=== PATIENT | male | born 1940 | race Caucasian/White ===

== ENCOUNTER → 2019-06-22 15:11 | Outpatient (CLI) | payer MEDICARE, SELFPAY ==
--- NOTE | 2019-06-22 | DI.MRI.S_ITS ---
PROCEDURE: MR LUMBAR SPINE WO CON INDICATIONS: Spondylolisthesis, lumbar region TECHNIQUE: Noncontrast sagittal T1 spin echo and T2 fast echo, sagittal STIR, axial T1 and T2 fast spin echo through the lumbar spine. In cases with scoliosis, additional coronal T2 fast spin echo may be performed. COMPARISON: [facility], MR, L-SPINE WITHOUT CONTRAST, 06/21/2013, 18:15. [facility], CR, XR LUMBAR SPINE WITH OLBIQUES PLUS FLEXION EXTENSION, 06/08/2019, 8:12. FINDINGS: Image quality: Excellent. Alignment and Curvature: There is moderate levoconvex scoliosis. There is mild retrolisthesis seen at L1-L2 at L2-L3, with mild interval is seen at the L5. Bone Marrow: Marrow is of normal overall signal. The T12 level demonstrates 20% loss of height anteriorly. There is abnormal decreased T1 weighted signal and decreased STIR signal along the inferior aspect of the vertebral body. No posterior displacement of fracture fragments can be seen. This is new compared to 2012. Spinal Cord: Conus medullaris terminates at the T12-L1 level. Visualized cord demonstrates normal signal and size. Paraspinous Soft Tissues: No paravertebral masses. T12-L1: Normal appearance. L1-L2: Moderate loss of disc height is seen. Loss of disc signal is seen. Reactive marrow endplate changes are seen, which are hyperintense on T1-weighted and T2-weighted imaging and most consistent with fatty metaplasia (Modic type II changes). Moderate bilateral neural foraminal narrowing is seen. Moderate central canal narrowing is seen. These imaging findings have progressed compared to the prior study. L2-L3: Mild to moderate loss of disc height and disc signal are seen. Moderate disc bulge is seen, which is eccentric to the right. Reactive marrow endplate changes are seen, which are hyperintense on T1-weighted and T2-weighted imaging and most consistent with fatty metaplasia (Modic type II changes). There is moderate to severe bilateral neural foraminal narrowing seen. There is a degree of compression seen upon the exiting nerve roots. Moderate central canal narrowing is seen. These imaging findings have progressed compared to the prior study. L3-L4: Moderate to severe loss of disc height and disc signal are seen. Reactive marrow endplate changes are seen, which demonstrate mixed T1 weighted and T2-weighted signal, and are attributed to a combination of edema and fatty metaplasia (Modic type I and Modic type II changes). There is at least moderate disc bulge seen. There is moderate to severe right-sided neural foraminal narrowing seen, with associated mild compression upon the exiting right L3 nerve root. There is moderate left-sided neural foraminal narrowing seen. Moderate central canal narrowing is seen. When comparison is made with the prior examination, these findings are similar. L4-L5: There is at least moderate loss of disc height and disc signal seen. Moderate disc bulge is seen at this level. Moderate to prominent facet hypertrophy is seen. There is moderate to severe left-sided and at least moderate right-sided neural foraminal narrowing seen. A mild degree of compression cannot be seen upon the exiting nerve roots, left worse than right. Moderate to severe central canal narrowing is seen. These imaging findings have progressed compared to the prior study. L5-S1: Mild to moderate loss of disc height and disc signal are seen. Mild to moderate disc bulge is seen, which is eccentric to the left. Moderate bilateral neural foraminal narrowing is seen, left worse than right. Mild central canal narrowing is seen. When comparison is made with the prior examination, these findings are similar. 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 Subacute anterior wedge deformity seen involving T12. Moderate levoconvex scoliosis. The degenerative changes have progressed compared to 2013. Dictated by: Dragan Payne M.D. on 06/22/2019 at 16:33 Approved by: Dragan Payne M.D. on 06/22/2019 at 16:41
== END ==
PROVIDERS: Family Provider Internal Medicine; PCP Internal Medicine; Visit Provider Physical Medicine & Rehabilitation
DX: M43.16 Spondylolisthesis, lumbar region (principal); M47.816 Spondylosis without myelopathy or radiculopathy, lumbar region; M47.817 Spondylosis without myelopathy or radiculopathy, lumbosacral region; M48.061 Spinal stenosis, lumbar region without neurogenic claudication
CPT/HCPCS: 72148

== ENCOUNTER → 2019-09-21 09:09 | Outpatient (CLI) | payer MEDICARE, SELFPAY ==
[2019-09-21 09:57] LABS: Add Manual Diff / Slide Review NO; Basophils Absolute Auto 0 /uL (0-100); Basophils Percent Auto 0.3 % (0-2); Eosinophils Absolute Auto 200 /uL (0-450); Eosinophils Percent Auto 4.5 % (2-4); Hematocrit 41.9 % (41-53); Hemoglobin 14.2 g/dL (13.5-17.5); Lymphocytes Absolute Auto 1100 /uL (1100-4500); Lymphocytes Percent Auto 20.5 % (25-40); Mean Corpuscular HGB Conc 33.9 % (30-36); Mean Corpuscular Hemoglobin 34.3 PG (26-34); Monocytes Absolute Auto 600 /uL (0-900); Monocytes Percent Auto 12.2 % (3-14); Neutrophils Absolute Auto 3300 /uL (1500-7000); Neutrophils Percent Auto 62.5 % (50-75); Platelet Count 204 X10^3/uL (150-400); Red Blood Cell Count 4.15 X10^6/uL (4.5-5.9); Red Cell Distribution Width 13.6 % (11.6-14.8); White Blood Cell Count 5.2 X10^3/uL (4.5-11.0)
[2019-09-21 10:19] LABS: Alanine Aminotransferase 30 IU/L (<50); Albumin 3.9 g/dL (3.5-5.0); Albumin Globulin Ratio 1.4 (1.0-2.8); Alkaline Phosphatase 87 U/L (38-126); Aspartate Aminotransferase 36 IU/L (17-59); BUN Creatinine Ratio 28.6 (6-22); Bilirubin Total 1.2 mg/dL (0.2-1.3); Blood Urea Nitrogen 20 mg/dL (9-20); Carbon Dioxide 28 mmol/L (22-32); Chloride 103 mmol/L (98-107); Cholesterol 164 mg/dL (140-199); Estimated Glomerular Filt Rate > 60.0 mL/min (>60); Globulin 2.8 g/dL (1.7-4.1); Glucose 90 mg/dL (80-110); HDL Cholesterol 59 mg/dL (40-60); HEMOLYSIS < 15 (0-50); LDL Cholesterol Calculated 98 mg/dL (<100); Potassium 4.3 mmol/L (3.4-5.1); Sodium 136 mmol/L (137-145); Total Protein 6.7 g/dL (6.3-8.2); Triglycerides 36 mg/dL (35-150)
== END ==
PROVIDERS: Family Provider Internal Medicine; PCP Internal Medicine; Referring Provider Internal Medicine; Visit Provider Internal Medicine
DX: E78.00 Pure hypercholesterolemia, unspecified (principal); L57.0 Actinic keratosis; I47.1 Supraventricular tachycardia; I10 Essential (primary) hypertension
CPT/HCPCS: 36415; 80053; 80061; 85025

== ENCOUNTER 2021-05-21 17:45 | Emergency (ER) | payer MEDICARE, SELFPAY ==
[2021-05-21] VITALS (8 sets, daily range): BP systolic 147–160; BP diastolic 75–88; PULSE 69–81; RESP 16–18; TEMP 37.5; O2SAT 96–100; BMI 22.3
--- NOTE | 2021-05-21 18:30 | DI.RAD.S_ITS ---
PROCEDURE: XR CHEST 1V INDICATIONS: suspected sepsis TECHNIQUE: One view of the chest was acquired. COMPARISON: [facility], , CHEST 2 VIEW, 11/09/2010, 8:45. FINDINGS: Surgical changes and devices: None. Lungs and pleura: Lungs are clear. No pleural effusions or pneumothorax. Mediastinum: Mediastinal contours appear normal. Heart size is normal. Bones and chest wall: No suspicious bony lesions. Overlying soft tissues appear unremarkable. Generalized decrease in osseous mineralization noted. IMPRESSION: No acute cardiopulmonary findings Approved by: Alonzo Bucio M.D. on 05/21/2021 at 18:16
[2021-05-21] MEDS: SODIUM CHLORIDE 0.9% 1,000 ML 1000 ML IV (18:47)
[2021-05-21 18:51] LABS: Add Manual Diff / Slide Review NO; Basophils Absolute Auto 0 /uL (0-100); Basophils Percent Auto 0.5 % (0-2); Eosinophils Absolute Auto 0 /uL (0-450); Eosinophils Percent Auto 0.2 % (2-4); Hematocrit 40.8 % (41-53); Lymphocytes Absolute Auto 500 /uL (1100-4500); Lymphocytes Percent Auto 5.2 % (25-40); Mean Corpuscular HGB Conc 34.2 % (30-36); Mean Corpuscular Hemoglobin 34.6 PG (26-34); Mean Corpuscular Volume 101.1 fL (80-100); Monocytes Absolute Auto 600 /uL (0-900); Monocytes Percent Auto 6.6 % (3-14); Neutrophils Absolute Auto 8400 /uL (1500-7000); Neutrophils Percent Auto 87.5 % (50-75); Platelet Count 169 X10^3/uL (150-400); Red Blood Cell Count 4.04 X10^6/uL (4.5-5.9); Red Cell Distribution Width 12.7 % (11.6-14.8); White Blood Cell Count 9.6 X10^3/uL (4.5-11.0)
[2021-05-21 19:01] LABS: INR 1.2 (0.9-1.3); Prothrombin Time 13.1 SECONDS (10.1-12.7)
[2021-05-21 19:04] LABS: PTT Partial Thromboplastin Tim 28 SECONDS (26.4-36.2)
[2021-05-21 19:08] LABS: Alanine Aminotransferase 23 IU/L (<50); Albumin 4.2 g/dL (3.5-5.0); Albumin Globulin Ratio 1.4 (1.0-2.8); Alkaline Phosphatase 83 U/L (38-126); Aspartate Aminotransferase 33 IU/L (17-59); BUN Creatinine Ratio 22.6 (6-22); Bilirubin Total 1.9 mg/dL (0.2-1.3); Blood Urea Nitrogen 14 mg/dL (9-20); Calcium 9.1 mg/dL (8.4-10.2); Carbon Dioxide 23 mmol/L (22-32); Chloride 96 mmol/L (98-107); Estimated Glomerular Filt Rate > 60.0 mL/min (>60); Globulin 2.9 g/dL (1.7-4.1); Glucose 84 mg/dL (80-110); HEMOLYSIS < 15 (0-50); Lactate (Lactic Acid) 1.4 mmol/L (0.7-2.1); Lipase 41 U/L (23-300); Potassium 4.1 mmol/L (3.4-5.1); Sodium 128 mmol/L (137-145); Total Protein 7.1 g/dL (6.3-8.2)
--- NOTE | 2021-05-21 19:12 | ED_ITS ---
HPI - Fever <Romy Sandoval PA-C - Last Filed: 05/27/21 21:05> General Chief Complaint: Fever Stated Complaint: Fever,Abcess Tooth on Left Side Time Seen by Provider: 05/21/21 18:40 Source: patient Mode of arrival: Ambulatory Limitations: no limitations History of Present Illness HPI Narrative: 80-year-old male with no reported past medical history presents to the ED with 1 day of left-sided dental pain. Patient states that he has an appointment with his dentist tomorrow for a dental abscess. Meanwhile, patient is to it got more painful and patient endorses a fever. Patient denies chills, shortness of breath, chest pain, cough, trouble swallowing, neck pain, nausea, vomiting, abdominal pain, lightheadedness, dizziness, syncope. Patient denies any discharge from the site of the dental pa Related Data Home Medications Medication Instructions Recorded Confirmed atenolol 25 mg tablet 25 mg PO QDAY #0 tab 04/19/13 05/21/21 atorvastatin 40 mg tablet (Lipitor) 40 mg PO BEDTIME #0 tab 04/19/13 05/21/21 lisinopril 20 mg tablet 20 mg PO QAM 05/21/21 05/21/21 Previous Rx's Medication Instructions Recorded amoxicillin 875 mg-potassium 1 tab PO BID 14 Days #28 tab 05/21/21 clavulanate 125 mg tablet (Augmentin) Allergies Allergy/AdvReac Type Severity Reaction Status Date / Time No Known Drug Allergies Allergy Verified 05/21/21 18:32 Review of Systems <Romy Sandoval PA-C - Last Filed: 05/27/21 21:05> Constitutional Constitutional: Denies chills, Denies fatigue, Reports fever(s), Denies frequent falls, Denies lethargy and Denies weakness Eyes Eyes: Denies change in vision, Denies eye discharge, Denies irritation and Denies loss of vision ENT Ears, Nose, Mouth, and Throat: Denies change in voice, Reports dental pain, Denies dizziness, Denies neck pain, Denies sore throat and Denies throat swelling Cardiovascular Cardiovascular: Denies chest pain, Denies irregular heart rhythm, Denies lightheadedness, Denies palpitations, Denies dyspnea, Denies dyspnea on exertion and Denies orthopnea Respiratory Respiratory: Denies cough, Denies dyspnea, Denies dyspnea on exertion and Denies wheezing Gastrointestinal Gastrointestinal: Denies abdominal pain, Denies change in bowel habits, Denies diarrhea, Denies nausea and Denies vomiting Musculoskeletal Musculoskeletal: Denies neck pain and Denies numbness Integumentary/Breasts Skin/Breast: Denies pruritus, Denies erythema, Denies rash and Denies wounds Neurologic Neurologic: Denies behavioral changes, Denies confusion, Denies dizziness, Denies frequent falls, Denies loss of vision, Denies numbness and Denies weakness Psychiatric Psychiatric: Denies anxiety, Denies behavioral changes, Denies confusion, Denies depression, Denies homicidal ideation and Denies suicidal ideation Endocrine Endocrine: Denies fatigue, Denies flushing and Denies palpitations Hematologic/Lymphatic Hematologic/Lymphatic: Denies easy bruising Allergic/Immunologic Allergic/Immunologic: Denies urticaria, Denies throat swelling and Denies wheezing Patient History <Romy Sandoval PA-C - Last Filed: 05/27/21 21:05> Social History Smoking Status: Never smoker Smoking Status: Never smoker alcohol intake frequency: 0-2 drinks per day Substance Use Type: does not use Exam <Romy Sandoval PA-C - Last Filed: 05/27/21 21:05> Narrative Exam Narrative: Left-sided lower tooth tender to palpation, no signs of discharge. No oral swelling. Airway patent. Initial Vital Signs Initial Vital Signs: Vital Signs Temperature 99.5 F 05/21/21 18:32 Pulse Rate 74 05/21/21 18:32 Respiratory Rate 18 05/21/21 18:32 Blood Pressure 160/88 H 05/21/21 18:32 Pulse Oximetry 96 05/21/21 18:32 Const General: cooperative HENMT Head: normocephalic and atraumatic Ears: external ears normal and TM's normal bilaterally Nose: external nose normal and No nasal discharge Face and sinus: sinuses nontender, face symmetric, no sinus tenderness and No dry mucous membranes Mouth: oral mucosae normal and moist mucous membranes Teeth and gingiva: dentition normal Throat: tonsils normal and uvula midline Eyes General: appearance normal, both eyes and all related structures Eyelids: eyelids normal Conjunctivae: conjunctivae normal Sclera: sclerae normal Pupils: PERRL EOM: EOM intact bilaterally Neck Neck: normal visual inspection, trachea midline, No lymphadenopathy, No midline deformity and No JVD Lymphatic: No lymphedema Chest Chest: normal inspection of the chest Resp Effort & Inspection: normal respiratory effort, able to speak in complete sentences, no respiratory distress and no use of accessory muscles Auscultation: clear to auscultation bilaterally, no rales, no rhonchi and no wheezes Cardio Rate: regular rate Rhythm: regular rhythm Heart Sounds: no click, no gallops, no murmurs and no rubs Pulses: normal peripheral pulses GI Inspection: non-distended Palpation: soft, no hepatosplenomegaly, No guarding, No pulsatile mass and No tender Auscultation: normal bowel sounds Back/Spine/Pelvis Back: No CVA tenderness Cervical Spine: cervical ROM normal and No pain with cervical ROM Thoracic/Lumbar Spine: thoracic and lumbar spine normal to inspection Skin General: no rashes or lesions noted, No jaundice and No petechiae Neuro General: patient alert, patient oriented x3, gait normal and no focal motor deficits Speech: speech normal Extrem General: full ROM, no clubbing, cyanosis or edema, no pedal edema and no calf tenderness Psych Appearance: well kempt Mental Status: mental status grossly normal Attitude: cooperative Thought Content: normal and suicidality Judgment: judgment good <Placido Lemus DO - Last Filed: 05/29/21 07:05> Initial Vital Signs Initial Vital Signs: Vital Signs Temperature 99.5 F 05/21/21 18:32 Pulse Rate 74 05/21/21 18:32 Respiratory Rate 18 05/21/21 18:32 Blood Pressure 160/88 H 05/21/21 18:32 Pulse Oximetry 96 05/21/21 18:32 Course <Romy Sandoval PA-C - Last Filed: 05/27/21 21:05> Orders Ordered: Discontinued Medications Amoxicillin/Clavulanate Potassium (Amoxicillin/Clav 875/125 Mg) 1 tab PO NOW ONE Stop: 05/21/21 19:36 Last Admin: 05/21/21 19:45 Dose: 1 tab Documented by: LARYYLNAEL Sodium Chloride (Normal Saline 0.9%) 1,000 mls @ 1,000 mls/hr IV BOLUS ONE Stop: 05/21/21 19:29 Last Infusion: 05/21/21 19:47 Dose: 0 mls/hr Documented by: Admin: 05/21/21 18:47 Dose: 1,000 mls/hr Documented by: ABI Ibuprofen (Ibuprofen 400 Mg Tablet) 800 mg PO NOW ONE Stop: 05/21/21 19:36 Last Admin: 05/21/21 19:45 Dose: 800 mg Documented by: ABI Vital Signs Vital signs: Vital Signs - 8 hr 05/21/21 18:32 05/21/21 18:45 Temperature 99.5 F Pulse Rate 74 75 Respiratory Rate 18 18 Blood Pressure 160/88 H 147/75 H Pulse Oximetry 96 100 <Placido Lemus DO - Last Filed: 05/29/21 07:05> Orders Ordered: Discontinued Medications Amoxicillin/Clavulanate Potassium (Amoxicillin/Clav 875/125 Mg) 1 tab PO NOW ONE Stop: 05/21/21 19:36 Last Admin: 05/21/21 19:45 Dose: 1 tab Documented by: ABI Sodium Chloride (Normal Saline 0.9%) 1,000 mls @ 1,000 mls/hr IV BOLUS ONE Stop: 05/21/21 19:29 Last Infusion: 05/21/21 19:47 Dose: 0 mls/hr Documented by: Admin: 05/21/21 18:47 Dose: 1,000 mls/hr Documented by: ABI Ibuprofen (Ibuprofen 400 Mg Tablet) 800 mg PO NOW ONE Stop: 05/21/21 19:36 Last Admin: 05/21/21 19:45 Dose: 800 mg Documented by: ABI Vital Signs Vital signs: Vital Signs - 8 hr 05/21/21 18:32 05/21/21 18:45 Temperature 99.5 F Pulse Rate 74 75 Respiratory Rate 18 18 Blood Pressure 160/88 H 147/75 H Pulse Oximetry 96 100 MDM - Fever <Romy Sandoval PA-C - Last Filed: 05/27/21 21:05> Medical Records Attestation: I reviewed the patient's medical records. Lab Data Attestation: I reviewed the patient's lab results. Lab results narrative: labs within normal limits Result diagrams: 05/21/21 18:45 05/21/21 18:45 Labs: Lab Results 05/21/21 05/21/21 05/21/21 Range/Units 18:45 18:45 18:45 WBC 9.6 (4.5-11.0) X10^3/uL RBC 4.04 L (4.5-5.9) X10^6/uL Hgb 14.0 (13.5-17.5) g/dL Hct 40.8 L (41-53) % MCV 101.1 H (80-100) fL MCH 34.6 H (26-34) PG MCHC 34.2 (30-36) % RDW 12.7 (11.6-14.8) % Plt Count 169 (150-400) X10^3/uL Neut % (Auto) 87.5 H (50-75) % Lymph % (Auto) 5.2 L (25-40) % Sevier % (Auto) 6.6 (3-14) % Eos % (Auto) 0.2 L (2-4) % Baso % (Auto) 0.5 (0-2) % Neut # (Auto) 8400 H (8106-6525) /uL Lymph # (Auto) 500 L (8060-6504) /uL Sevier # (Auto) 600 (0-900) /uL Eos # (Auto) 0 (0-450) /uL Baso # (Auto) 0 (0-100) /uL PT 13.1 H (10.1-12.7) SECONDS INR 1.2 (0.9-1.3) APTT 28 (26.4-36.2) SECONDS Sodium 128 L (137-145) mmol/L Potassium 4.1 (3.4-5.1) mmol/L Chloride 96 L (98-107) mmol/L Carbon Dioxide 23 (22-32) mmol/L BUN 14 (9-20) mg/dL Creatinine 0.62 L (0.66-1.25) mg/dL Estimated GFR > 60.0 (>60) mL/min BUN/Creatinine Ratio 22.6 H (6-22) Glucose 84 (80-110) mg/dL Lactate (0.7-2.1) mmol/L Calcium 9.1 (8.4-10.2) mg/dL Total Bilirubin 1.9 H (0.2-1.3) mg/dL AST 33 (17-59) IU/L ALT 23 (<50) IU/L Alkaline Phosphatase 83 (38-126) U/L Total Protein 7.1 (6.3-8.2) g/dL Albumin 4.2 (3.5-5.0) g/dL Globulin 2.9 (1.7-4.1) g/dL Albumin/Globulin Ratio 1.4 (1.0-2.8) Lipase 41 (23-300) U/L Procalcitonin 0.21 (<0.5) ng/mL 05/21/21 Range/Units 18:45 WBC (4.5-11.0) X10^3/uL RBC (4.5-5.9) X10^6/uL Hgb (13.5-17.5) g/dL Hct (41-53) % MCV (80-100) fL MCH (26-34) PG MCHC (30-36) % RDW (11.6-14.8) % Plt Count (150-400) X10^3/uL Neut % (Auto) (50-75) % Lymph % (Auto) (25-40) % Sevier % (Auto) (3-14) % Eos % (Auto) (2-4) % Baso % (Auto) (0-2) % Neut # (Auto) (6635-7080) /uL Lymph # (Auto) (1972-0351) /uL Sevier # (Auto) (0-900) /uL Eos # (Auto) (0-450) /uL Baso # (Auto) (0-100) /uL PT (10.1-12.7) SECONDS INR (0.9-1.3) APTT (26.4-36.2) SECONDS Sodium (137-145) mmol/L Potassium (3.4-5.1) mmol/L Chloride (98-107) mmol/L Carbon Dioxide (22-32) mmol/L BUN (9-20) mg/dL Creatinine (0.66-1.25) mg/dL Estimated GFR (>60) mL/min BUN/Creatinine Ratio (6-22) Glucose (80-110) mg/dL Lactate 1.4 (0.7-2.1) mmol/L Calcium (8.4-10.2) mg/dL Total Bilirubin (0.2-1.3) mg/dL AST (17-59) IU/L ALT (<50) IU/L Alkaline Phosphatase (38-126) U/L Total Protein (6.3-8.2) g/dL Albumin (3.5-5.0) g/dL Globulin (1.7-4.1) g/dL Albumin/Globulin Ratio (1.0-2.8) Lipase (23-300) U/L Procalcitonin (<0.5) ng/mL Imaging Data Chest x-ray: Radiologist's Impression: PROCEDURE:? XR CHEST 1V ? INDICATIONS:? suspected sepsis ? TECHNIQUE:? One view of the chest was acquired.? ? COMPARISON:? [facility], , CHEST 2 VIEW, 11/09/2010, 8:45. ? FINDINGS:? ? Surgical changes and devices:? None.? ? Lungs and pleura:? Lungs are clear.? No pleural effusions or pneumothorax.? ? Mediastinum:? Mediastinal contours appear normal.? Heart size is normal.? ? Bones and chest wall:? No suspicious bony lesions.? Overlying soft tissues appear unremarkable.? Generalized decrease in osseous mineralization noted. ? IMPRESSION:? ? No acute cardiopulmonary findings ? ? ? Approved by: Alonzo Bucio M.D. on 05/21/2021 at 18:16? MDM Narrative Medical decision making narrative: 80-year-old male with no reported past medical history presents to the ED with 1 day of left-sided dental pain. concern for apical abscess versus crack to it. Will get chest x-ray, labs to rule out other sources of infection. Will start patient on Augmentin, ibupr ofen. Likely discharge home with dental appointment tomorrow as planned. <Placido Lemus, - Last Filed: 05/29/21 07:05> Lab Data Labs: Lab Results 05/21/21 05/21/21 05/21/21 Range/Units 18:45 18:45 18:45 WBC 9.6 (4.5-11.0) X10^3/uL RBC 4.04 L (4.5-5.9) X10^6/uL Hgb 14.0 (13.5-17.5) g/dL Hct 40.8 L (41-53) % MCV 101.1 H (80-100) fL MCH 34.6 H (26-34) PG MCHC 34.2 (30-36) % RDW 12.7 (11.6-14.8) % Plt Count 169 (150-400) X10^3/uL Neut % (Auto) 87.5 H (50-75) % Lymph % (Auto) 5.2 L (25-40) % Sevier % (Auto) 6.6 (3-14) % Eos % (Auto) 0.2 L (2-4) % Baso % (Auto) 0.5 (0-2) % Neut # (Auto) 8400 H (9968-6909) /uL Lymph # (Auto) 500 L (5048-9441) /uL Sevier # (Auto) 600 (0-900) /uL Eos # (Auto) 0 (0-450) /uL Baso # (Auto) 0 (0-100) /uL PT 13.1 H (10.1-12.7) SECONDS INR 1.2 (0.9-1.3) APTT 28 (26.4-36.2) SECONDS Sodium 128 L (137-145) mmol/L Potassium 4.1 (3.4-5.1) mmol/L Chloride 96 L (98-107) mmol/L Carbon Dioxide 23 (22-32) mmol/L BUN 14 (9-20) mg/dL Creatinine 0.62 L (0.66-1.25) mg/dL Estimated GFR > 60.0 (>60) mL/min BUN/Creatinine Ratio 22.6 H (6-22) Glucose 84 (80-110) mg/dL Lactate (0.7-2.1) mmol/L Calcium 9.1 (8.4-10.2) mg/dL Total Bilirubin 1.9 H (0.2-1.3) mg/dL AST 33 (17-59) IU/L ALT 23 (<50) IU/L Alkaline Phosphatase 83 (38-126) U/L Total Protein 7.1 (6.3-8.2) g/dL Albumin 4.2 (3.5-5.0) g/dL Globulin 2.9 (1.7-4.1) g/dL Albumin/Globulin Ratio 1.4 (1.0-2.8) Lipase 41 (23-300) U/L Procalcitonin 0.21 (<0.5) ng/mL 05/21/21 Range/Units 18:45 WBC (4.5-11.0) X10^3/uL RBC (4.5-5.9) X10^6/uL Hgb (13.5-17.5) g/dL Hct (41-53) % MCV (80-100) fL MCH (26-34) PG MCHC (30-36) % RDW (11.6-14.8) % Plt Count (150-400) X10^3/uL Neut % (Auto) (50-75) % Lymph % (Auto) (25-40) % Sevier % (Auto) (3-14) % Eos % (Auto) (2-4) % Baso % (Auto) (0-2) % Neut # (Auto) (0382-1167) /uL Lymph # (Auto) (0239-9866) /uL Sevier # (Auto) (0-900) /uL Eos # (Auto) (0-450) /uL Baso # (Auto) (0-100) /uL PT (10.1-12.7) SECONDS INR (0.9-1.3) APTT (26.4-36.2) SECONDS Sodium (137-145) mmol/L Potassium (3.4-5.1) mmol/L Chloride (98-107) mmol/L Carbon Dioxide (22-32) mmol/L BUN (9-20) mg/dL Creatinine (0.66-1.25) mg/dL Estimated GFR (>60) mL/min BUN/Creatinine Ratio (6-22) Glucose (80-110) mg/dL Lactate 1.4 (0.7-2.1) mmol/L Calcium (8.4-10.2) mg/dL Total Bilirubin (0.2-1.3) mg/dL AST (17-59) IU/L ALT (<50) IU/L Alkaline Phosphatase (38-126) U/L Total Protein (6.3-8.2) g/dL Albumin (3.5-5.0) g/dL Globulin (1.7-4.1) g/dL Albumin/Globulin Ratio (1.0-2.8) Lipase (23-300) U/L Procalcitonin (<0.5) ng/mL Discharge Plan Departure Patient Disposition: Home Clinical Impression: Tooth ache Instructions: DI for Dental Pain Activity Restrictions/Additional Instructions: You were evaluated for dental pain in the ED today. Your labs and chest x-ray are normal. You were given the 1st dose of the antibiotic Augmentin. You were also given ibuprofen for the pain. Please complete the full course of Augmentin. Please follow-up with your dentist tomorrow as planned. Return to the ED if your symptoms worsen, you experience shortness of breath, chest pain, worsening fever-.- Prescriptions: New amoxicillin-pot clavulanate [Augmentin] 875-125 mg tablet 1 tab PO BID 14 Days Qty: 28 RF: 0 No Action atorvastatin [Lipitor] 40 MG tablet 40 mg PO BEDTIME Qty: 0 RF: 0 atenolol 25 MG tablet 25 mg PO QDAY Qty: 0 RF: 0 lisinopril 20 mg tablet 20 mg PO QAM RF: 0 Referrals: Emerson Fitzpatrick MD [Primary Care Provider] - <Placido Lemus DO - Last Filed: 05/29/21 07:05> [facility]: Dr Lemus Co-Sign Statement: I was available for consultation during this patient's emergency department visit. This chart is signed by myself for administrative purposes only. I did not have direct contact with this patient during this visit. They were seen independently by the APC.
[2021-05-21 19:24] LABS: Procalcitonin 0.21 ng/mL (<0.5)
[2021-05-21] MEDS: AMOXICILLIN/CLAV 875/125 MG 1 TAB PO (19:45)
[2021-05-21] MEDS: IBUPROFEN 400 MG TABLET 800 MG PO (19:45)
== END 2021-05-21 19:53 | disposition home or self-care (01) ==
PROVIDERS: Emergency Medicine; Emergency Provider Student in an Organized Health Care Education/Training Program; Family Provider Internal Medicine; PCP Internal Medicine
DX: K08.89 Other specified disorders of teeth and supporting structures (principal); R50.9 Fever, unspecified
CPT/HCPCS: 36415; 71045; 80053; 83605; 83690; 84145; 85025; 85610; 85730; 87040; 96360; 99284

== ENCOUNTER → 2021-07-17 11:27 | Outpatient (CLI) | payer MEDICARE, SELFPAY ==
--- NOTE | 2021-07-17 | DI.RAD.S_ITS ---
PROCEDURE: XR CHEST 2V INDICATIONS: CHRONIC COUGH TECHNIQUE: 2 views of the chest were acquired. COMPARISON: [facility], CR, XR CHEST 1V, 05/21/2021, 18:31. FINDINGS: Surgical changes and devices: None. Lungs and pleura: 5 mm nodular density in the right lower lung zone, unchanged and likely represents a granuloma. Mildly coarsened interstitial markings. No consolidation, pleural effusions or pneumothorax. Mediastinum: Mediastinal contours are normal. Tortuous aorta. Heart size is normal. Bones and chest wall: No suspicious bony abnormalities. Soft tissues appear unremarkable. IMPRESSION: No acute cardiopulmonary abnormality. Dictated by: Ger Mooney M.D. on 07/17/2021 at 11:42 Approved by: Ger Mooney M.D. on 07/17/2021 at 11:44
== END ==
PROVIDERS: Family Provider Internal Medicine; PCP Internal Medicine; Referring Provider Internal Medicine; Visit Provider Internal Medicine
DX: R05.3 Chronic cough (principal)
CPT/HCPCS: 71046

== ENCOUNTER → 2022-09-16 13:42 | Outpatient (CLI) | payer MEDICARE, SELFPAY ==
--- NOTE | 2022-09-16 | DI.MRI.S_ITS ---
PROCEDURE: MR LUMBAR SPINE WO CON INDICATIONS: Radiculopathy, lumbar region TECHNIQUE: Noncontrast sagittal T1 spin echo and T2 fast echo, sagittal STIR, and T2 fast spin echo through the lumbar spine. In cases with scoliosis, additional coronal T2 fast spin echo may be performed. COMPARISON: [facility], MR, MR LUMBAR SPINE WO CON, 06/22/2019, 15:21. FINDINGS: Image quality: Excellent. Alignment and Curvature: There is straightening of normal lumbar lordosis. 5 millimeter retrolisthesis of L1 on L2, L2 on L3 and 6 millimeter anterolisthesis of L4 on L5 is again seen unchanged from prior study. Mild leftward curvature of lumbar spine with apex at L3 level is again seen. Bone Marrow: There is no gross marrow edema. No acute vertebral body compression fractures. Chronic appearing compression deformity involving T12 is again seen with now up to 40 percent loss of L2 vertebral body height anteriorly further decreased compared to 2019 study. Spinal Cord: Conus medullaris terminates at the T12-L1 level. Visualized cord demonstrates normal signal and size. Paraspinous Soft Tissues: No paravertebral masses. T12-L1: Broad-based disc bulge and bilateral facet arthrosis is seen with mild central canal stenosis and mild right-sided neural foraminal narrowing. L1-L2: Loss of disc height and disc signal is seen. Broad-based disc bulge and bilateral facet arthrosis is seen with [id number] central canal stenosis and moderate to severe left-sided neural foraminal narrowing. Mild to moderate right-sided neural foraminal narrowing is also seen. L2-L3: Loss of disc height and disc signal is seen. Degenerative endplate changes are also noted. Broad-based disc bulge and bilateral facet arthrosis with hypertrophy of ligamentum flavum is seen causing moderate central canal stenosis and moderate to severe bilateral neural foraminal narrowing. L3-L4: There is loss of disc height and disc signal. Degenerative endplate changes are noted. Broad-based, more left-sided disc bulge and bilateral facet arthrosis with hypertrophy of ligamentum flavum is seen causing moderate central canal stenosis and severe bilateral neural foraminal narrowing. L4-L5: Loss of disc height and disc signal. Broad-based disc bulge and bilateral facet arthrosis with hypertrophy of ligamentum flavum is seen causing severe central canal stenosis and bilateral neural foraminal narrowing. L5-S1: Loss of disc height and disc signal is seen. There is diffuse disc bulge and bilateral facet arthrosis with mild central canal stenosis, moderate to severe left-sided neural foraminal narrowing and mild right-sided neural foraminal narrowing. IMPRESSION: 1. Chronic appearing anterior wedge compression deformity at T12 level with interval further loss of T12 disc height as above. No acute vertebral body compression fracture. No marrow edema. 2. Mild levoscoliosis with apex at L3 level. Grade 1 retrolisthesis at L1-2 and L2-3 levels and grade 1 anterolisthesis at L4-5 level. 3. 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 Dictated by: Chad Wilkinson M.D. on 09/17/2022 at 8:34 Approved by: Chad Wilkinson M.D. on 09/17/2022 at 8:42
== END ==
PROVIDERS: Family Provider Internal Medicine; PCP Internal Medicine; Referring Provider Physical Medicine & Rehabilitation; Visit Provider Physical Medicine & Rehabilitation
DX: M51.16 Intervertebral disc disorders with radiculopathy, lumbar region (principal); M51.17 Intervertebral disc disorders with radiculopathy, lumbosacral region; M47.26 Other spondylosis with radiculopathy, lumbar region; M47.27 Other spondylosis with radiculopathy, lumbosacral region; M48.061 Spinal stenosis, lumbar region without neurogenic claudication; M48.07 Spinal stenosis, lumbosacral region; M43.16 Spondylolisthesis, lumbar region; M41.9 Scoliosis, unspecified; M43.8X4 Other specified deforming dorsopathies, thoracic region
CPT/HCPCS: 72148

== ENCOUNTER 2023-02-27 10:46 | Emergency (ER) | payer MEDICARE, SELFPAY ==
[2023-02-27] VITALS (35 sets, daily range): BP systolic 104–151; BP diastolic 55–90; PULSE 66–102; RESP 14–35; O2SAT 91–99; BMI 24.0
--- NOTE | 2023-02-27 10:48 | DI.CT.S_ITS ---
PROCEDURE: CT ANGIO HEAD AND NECK INDICATIONS: suspected stroke TECHNIQUE: After the administration of intravenous contrast, 1 mm thick sections acquired from the aortic arch through the [place] of [place]. Post-contrast 4.5 mm thick sections then re-acquired from the foramen magnum to the vertex. 3-dimensional dvfrvjh-cpjokcojn-fujjacqkic (MIP) and/or volume rendering reformats were acquired of the central intracranial vasculature and neck separately. For radiation dose reduction, the following was used: automated exposure control, adjustment of mA and/or kV according to patient size. COMPARISON: [facility], CT, CT STROKE, 02/27/2023, 10:55. FINDINGS: Image quality: Excellent. BRAIN: CSF spaces: Ventricles are normal in size and shape. Basal cisterns are patent. No extra-axial fluid collections. Brain: No midline shift. No intracranial bleeds or masses. [place]-white matter interface appears intact. Skull and face: Calvarium and facial bones appear intact, without suspicious lesions. Orbits appear normal. Sinuses: Sinuses and mastoids are clear. HEAD CT ANGIOGRAPHY: Anterior circulation: Intracranial internal carotid arteries are normal in size and flow. The flow within the paired anterior cerebral arteries is normal and symmetric. The flow within the middle cerebral arteries is normal and symmetric. The anterior communicating artery is seen. No aneurysms are seen. Posterior circulation: Visualized portions of the vertebral arteries demonstrate normal caliber, and join to form a normal appearing basilar artery. Flow within the posterior cerebral arteries is normal and symmetric. No aneurysms are seen. NECK CT ANGIOGRAPHY: Carotid system: The great vessels demonstrate a conventional anatomy as they arise from the aortic arch. The origins of the common carotid arteries appear patent. The common carotid arteries demonstrate normal caliber and courses. Bilateral carotid bifurcation calcifications. Mild bilateral proximal internal carotid artery stenotic disease, less than 50% bilaterally. Posterior circulation: The origins of the vertebral arteries both appear widely patent. The more superior extracranial portions of both vertebral arteries also demonstrate normal courses and calibers. They join to form a normal appearing basilar artery. Soft tissues: Visualized neck soft tissues demonstrate no suspicious abnormalities. Bones: No suspicious bony lesions. Visualized cervical spine appears normally aligned. IMPRESSION: 1. No acute intracranial abnormality. 2. Unremarkable CTA head. No stenosis, aneurysm, occlusion, or focal filling defect. 3. Mild bilateral proximal carotid artery stenosis, less than 50% bilaterally. Comment: Findings were discussed with Dr. Rodgers on 02/27/2023 at 1121 hours Any quantitative measurements of stenosis were performed using NASCET criteria. Dictated by: Eliu Maher M.D. on 02/27/2023 at 11:16 Approved by: Eliu Maher M.D. on 02/27/2023 at 11:22
--- NOTE | 2023-02-27 10:48 | DI.CT.S_ITS ---
PROCEDURE: CT STROKE INDICATIONS: suspected stroke, TPA timeframe TECHNIQUE: Noncontrast 4.5 mm thick angled axial sections acquired from the foramen magnum to the vertex, with coronal reformats. For radiation dose reduction, the following was used: automated exposure control, adjustment of mA and/or kV according to patient size. COMPARISON: [facility], , CT HEAD W/O CONTRAST, 10/28/2005, 11:51. FINDINGS: Image quality: Excellent. CSF spaces: Basal cisterns are patent. No extra-axial fluid collections. The ventricles are symmetric in size and shape. Brain: No intracranial bleeds or masses. There is cerebral volume loss for age, with resultant ventricular and sulcal prominence. There are periventricular and deep white matter chronic small vessel ischemic changes. Incidental large dilated perivascular space on the left, previously present, but increased in size. There is intracranial internal carotid artery atherosclerosis. Skull and face: Calvarium and visualized facial bones appear intact, without suspicious lesions. Sinuses: Visualized sinuses and mastoids are clear. IMPRESSION: No acute intracranial process. Comment: Findings were discussed with Dr. Rodgers on 02/27/2023 at 1058 hours This study fulfills neurological imaging criteria for inclusion or exclusion of acute stroke therapies based on available published neurological guidelines. Dictated by: Eliu Maher M.D. on 02/27/2023 at 10:58 Approved by: Eliu Maher M.D. on 02/27/2023 at 11:00
--- NOTE | 2023-02-27 10:50 | ED.GENADULT ---
HPI - General Adult General Stated complaint: Code Stroke Time Seen by Provider: 02/27/23 10:47 Related Data Home Medications Medication Instructions Recorded Confirmed atenolol 25 mg tablet 25 mg PO QDAY #0 tabs 04/19/13 05/21/21 atorvastatin 40 mg tablet (Lipitor) 40 mg PO BEDTIME #0 tabs 04/19/13 05/21/21 lisinopril 20 mg tablet 20 mg PO QAM 05/21/21 05/21/21 Allergies Allergy/AdvReac Type Severity Reaction Status Date / Time No Known Drug Allergies Allergy Verified 05/21/21 18:32 Patient History Social History Smoking Status: Never smoker Smoking Status: Never smoker alcohol intake frequency: 0-2 drinks per day Substance Use Type: does not use Course Orders Ordered: ED Orders 02/27/23 10:48 CT angio head and neck Stat CT head/brain wo con Stat Complete Blood Count AUTO DIFF Stat Comprehensive Metabolic Panel Stat Lipase Stat PTT Partial Thromboplastin Bill Stat Prothrombin Time INR Stat 02/27/23 10:49 Troponin I Stat Urinalysis and Microscopic Stat Discharge Plan Departure Prescriptions: No Action atorvastatin [Lipitor] 40 MG tablet 40 mg PO BEDTIME Qty: 0 atenolol 25 MG tablet 25 mg PO QDAY Qty: 0 lisinopril 20 mg tablet 20 mg PO QAM Referrals: Emerson Fitzpatrick MD [Primary Care Provider] -
[2023-02-27 11:09] LABS: Add Manual Diff / Slide Review NO; Basophils Absolute Auto 0 /uL (0-100); Basophils Percent Auto 0.4 % (0-2); Eosinophils Absolute Auto 200 /uL (0-450); Eosinophils Percent Auto 2.8 % (2-4); Hematocrit 44.2 % (41-53); Hemoglobin 15.5 g/dL (13.5-17.5); Lymphocytes Absolute Auto 1000 /uL (1100-4500); Lymphocytes Percent Auto 14.1 % (25-40); Mean Corpuscular Hemoglobin 35.1 PG (26-34); Mean Corpuscular Volume 100.3 fL (80-100); Monocytes Absolute Auto 700 /uL (0-900); Monocytes Percent Auto 10.5 % (3-14); Neutrophils Absolute Auto 4900 /uL (1500-7000); Neutrophils Percent Auto 72.2 % (50-75); Platelet Count 163 X10^3/uL (150-400); Red Blood Cell Count 4.41 X10^6/uL (4.5-5.9); Red Cell Distribution Width 13.6 % (11.6-14.8); White Blood Cell Count 6.8 X10^3/uL (4.5-11.0)
[2023-02-27 11:14] LABS: INR 1.1 (0.9-1.3)
[2023-02-27 11:16] LABS: PTT Partial Thromboplastin Tim 29 SECONDS (26-36)
--- NOTE | 2023-02-27 11:16 | ED_ITS ---
HPI - General Adult General Chief complaint: Weakness Stated complaint: Code Stroke Time Seen by Provider: 02/27/23 10:47 Source: EMS Mode of arrival: Wheelchair History of Present Illness HPI narrative: 82-year-old gentleman who awoke this morning was going about his usual routine when he noticed that he had acute onset of double vision. He felt that it would get better was able to walk down to his mailbox and get his paper as he came backup he noted that the double vision was getting worse. He mentioned it to his and they drove into the ophthalmology office. The research and development chemist called 911 with concerns for acute stroke. On arrival he has double vision slight right facial droop mild slurring with his speech. He has history of hypertension, hyperlipidemia no prior stroke no known cardiac disease he takes a baby aspirin and is on no anticoagulant medications. Reports no recent fever, cough, chills, nausea, vomiting, diarrhea. No palpitations, chest pain or dyspnea. Related Data Home Medications Medication Instructions Recorded Confirmed atenolol 25 mg tablet 25 mg PO QDAY #0 tabs 04/19/13 05/21/21 atorvastatin 40 mg tablet (Lipitor) 40 mg PO BEDTIME #0 tabs 04/19/13 05/21/21 lisinopril 20 mg tablet 20 mg PO QAM 05/21/21 05/21/21 Allergies Allergy/AdvReac Type Severity Reaction Status Date / Time No Known Drug Allergies Allergy Verified 05/21/21 18:32 Review of Systems Review of Systems Narrative: Pertinent positive and negative findings as per HPI Patient History Medical History (Updated 02/27/23 @ 11:46 by Kitty Rodgers MD) Hyperlipidemia Hypertension Social History Smoking Status: Never smoker Smoking Status: Never smoker alcohol intake frequency: 0-2 drinks per day Substance Use Type: does not use Exam Initial Vital Signs Initial Vital Signs: Vital Signs Pulse Rate 99 H 02/27/23 11:01 Pulse Oximetry 96 02/27/23 11:01 Oxygen Delivery Method Room Air 02/27/23 11:01 General: Healthy appearing, in no acute distress. Able to give a complete and coherent history. Well-nourished well-developed HEENT: Moist mucous membranes, normal sclera with reactive pupils, slight right facial droop without sensory abnormality Neck: No JVD, supple Respiratory: Lungs are clear to auscultation, no wheezing no rales no rhonchi. Full and symmetrical air movement Cardiac: Regular rate and rhythm no murmurs no bruits Abdomen: Soft, nontender, good bowel tones, no flank pain Skin: Warm and dry, no rashes Neurologic: Tends to drift toward his right side and is unable to completely support himself sitting toward the right side, strength testing in the right arm and right leg is 5/5. There are no sensory abnormalities. On visual exam he does complain of double vision. His left eye has some mild decreased visual acuity the medial aspect of his visual field. He is unable to move past midline with his left eye. Mild difficulty moving all the way lateral but better movement laterally. His right eye has normal peripheral vision and extraocular movement. Bilateral vision peripheral vision testing is unremarkable. Extremities: No trauma, well perfused Psych: Cooperative, appropriate insight and affect NIH Stroke Scale/Score 5 points NIH Stroke Scale INPUTS: 1A: Level of consciousness ?> 0 = Alert; keenly responsive 1B: Ask month and age ?> 0 = Both questions right 1C: 'Blink eyes' & 'squeeze hands' ?> 0 = Performs both tasks 2: Horizontal extraocular movements ?> 2 = Forced gaze palsy: cannot be overcome 3: Visual mix ?> 1 = Partial hemianopia 4: Facial palsy ?> 1 = Minor paralysis (flat nasolabial fold, smile asymmetry) 5A: Left arm motor drift ?> 0 = No drift for 10 seconds 5B: Right arm motor drift ?> 0 = No drift for 10 seconds 6A: Left leg motor drift ?> 0 = No drift for 5 seconds 6B: Right leg motor drift ?> 0 = No drift for 5 seconds 7: Limb Ataxia ?> 0 = No ataxia 8: Sensation ?> 0 = Normal; no sensory loss 9: Language/aphasia ?> 0 = Normal; no aphasia 10: Dysarthria ?> 1 = Mild-moderate dysarthria: slurring but can be understood 11: Extinction/inattention ?> 0 = No abnormality Repeat acore 1230, post infusion TPA, acute clinical change 13 points NIH Stroke Scale INPUTS: 1A: Level of consciousness ?> 0 = Alert; keenly responsive 1B: Ask month and age ?> 0 = Both questions right 1C: 'Blink eyes' & 'squeeze hands' ?> 0 = Performs both tasks 2: Horizontal extraocular movements ?> 2 = Forced gaze palsy: cannot be overcome 3: Visual mix ?> 1 = Partial hemianopia 4: Facial palsy ?> 2 = Partial paralysis (lower face) 5A: Left arm motor drift ?> 0 = No drift for 10 seconds 5B: Right arm motor drift ?> 2 = Drift, hits bed 6A: Left leg motor drift ?> 0 = No drift for 5 seconds 6B: Right leg motor drift ?> 2 = Drift, hits bed 7: Limb Ataxia ?> 2 = Ataxia in 2 Limbs 8: Sensation ?> 0 = Normal; no sensory loss 9: Language/aphasia ?> 1 = Mild-moderate aphasia: some obvious changes, without significant limitation 10: Dysarthria ?> 1 = Mild-moderate dysarthria: slurring but can be understood 11: Extinction/inattention ?> 0 = No abnormality Course Orders Ordered: Discontinued Medications Alteplase, Recombinant (Activase) 6.8 mg in 6.8 mls @ 408 mls/hr 0.09 mg/kg (6.8 mg) IV NOW ONE Stop: 02/27/23 11:31 Last Infusion: 02/27/23 11:43 Dose: 0 mls/hr Documented By: Admin: 02/27/23 11:42 Dose: 408 mls/hr Documented By: CHARBEL Alteplase, Recombinant (Activase) 61.6 mg in 61.6 mls @ 61.6 mls/hr 0.81 mg/kg (61.6 mg) IV NOW ONE Stop: 02/27/23 12:29 Last Infusion: 02/27/23 12:45 Dose: 0 mls/hr Documented By: Admin: 02/27/23 11:45 Dose: 61.6 mls/hr Documented By: CHARBEL Vital Signs Vital signs: Vital Signs - 8 hr 02/27/23 11:06 02/27/23 11:01 02/27/23 11:03 Pulse Rate 81 99 H Respiratory Rate 26 H Blood Pressure 151/89 H 151/89 H Pulse Oximetry 99 96 Oxygen Delivery Method Room Air Room Air 02/27/23 11:03 02/27/23 11:15 02/27/23 11:20 Pulse Rate 95 H 102 H 90 Respiratory Rate 21 20 21 Blood Pressure Pulse Oximetry 98 98 97 Oxygen Delivery Method 02/27/23 11:20 02/27/23 11:30 02/27/23 11:30 Pulse Rate 84 Respiratory Rate 24 Blood Pressure 143/85 H 138/85 Pulse Oximetry 98 Oxygen Delivery Method 02/27/23 11:45 02/27/23 12:00 02/27/23 12:00 Pulse Rate 90 93 H Respiratory Rate 25 H 20 Blood Pressure 135/81 Pulse Oximetry 97 96 Oxygen Delivery Method 02/27/23 12:15 02/27/23 12:15 02/27/23 12:30 Pulse Rate 95 H Respiratory Rate 24 Blood Pressure 149/90 H 139/63 Pulse Oximetry 91 Oxygen Delivery Method 02/27/23 12:30 02/27/23 12:44 02/27/23 12:44 Pulse Rate 93 H 85 Respiratory Rate 20 26 H Blood Pressure 132/66 Pulse Oximetry 94 97 Oxygen Delivery Method 02/27/23 12:45 02/27/23 12:45 02/27/23 12:50 Pulse Rate 81 83 Respiratory Rate 35 H 17 Blood Pressure 125/67 Pulse Oximetry 97 97 Oxygen Delivery Method Room Air 02/27/23 12:50 02/27/23 12:56 02/27/23 12:56 Pulse Rate 99 H Respiratory Rate 28 H Blood Pressure 125/61 138/72 Pulse Oximetry Oxygen Delivery Method 02/27/23 13:00 02/27/23 13:01 02/27/23 13:01 Pulse Rate 80 84 Respiratory Rate 20 19 Blood Pressure 121/71 Pulse Oximetry 96 96 Oxygen Delivery Method 02/27/23 13:05 02/27/23 13:05 02/27/23 13:10 Pulse Rate 81 Respiratory Rate 21 Blood Pressure 118/68 129/65 Pulse Oximetry 97 Oxygen Delivery Method 02/27/23 13:10 02/27/23 13:15 02/27/23 13:15 Pulse Rate 98 H 79 Respiratory Rate 27 H 17 Blood Pressure 109/65 Pulse Oximetry 96 97 Oxygen Delivery Method 02/27/23 13:22 02/27/23 13:22 02/27/23 13:29 Pulse Rate 78 77 Respiratory Rate 21 14 Blood Pressure 111/59 L Pulse Oximetry 96 95 Oxygen Delivery Method 02/27/23 13:30 02/27/23 13:42 02/27/23 13:30 Pulse Rate 66 83 Respiratory Rate 18 17 Blood Pressure 115/58 L 104/59 L Pulse Oximetry 96 96 Oxygen Delivery Method Room Air 02/27/23 13:35 02/27/23 13:40 02/27/23 13:45 Pulse Rate 73 77 78 Respiratory Rate 18 19 20 Blood Pressure Pulse Oximetry 97 97 96 Oxygen Delivery Method 02/27/23 13:50 02/27/23 13:55 02/27/23 13:58 Pulse Rate 81 85 Respiratory Rate 23 20 Blood Pressure 115/61 Pulse Oximetry 98 96 Oxygen Delivery Method 02/27/23 13:58 02/27/23 14:00 02/27/23 14:01 Pulse Rate 73 72 Respiratory Rate 20 19 Blood Pressure 119/73 Pulse Oximetry 97 96 Oxygen Delivery Method Medical Decision Making Lab Data 02/27/23 10:55 02/27/23 10:55 Labs: Lab Results 02/27/23 02/27/23 02/27/23 Range/Units 10:55 10:55 10:55 WBC 6.8 (4.5-11.0) X10^3/uL RBC 4.41 L (4.5-5.9) X10^6/uL Hgb 15.5 (13.5-17.5) g/dL Hct 44.2 (41-53) % MCV 100.3 H (80-100) fL MCH 35.1 H (26-34) PG MCHC 35.0 (30-36) % RDW 13.6 (11.6-14.8) % Plt Count 163 (150-400) X10^3/uL Neut % (Auto) 72.2 (50-75) % Lymph % (Auto) 14.1 L (25-40) % [place] % (Auto) 10.5 (3-14) % Eos % (Auto) 2.8 (2-4) % Baso % (Auto) 0.4 (0-2) % Neut # (Auto) 4900 (0243-5323) /uL Lymph # (Auto) 1000 L (3613-2798) /uL [place] # (Auto) 700 (0-900) /uL Eos # (Auto) 200 (0-450) /uL Baso # (Auto) 0 (0-100) /uL PT 13.0 H (10.1-12.7) SECONDS INR 1.1 (0.9-1.3) APTT 29 (26-36) SECONDS Sodium 130 L (137-145) mmol/L Potassium 4.4 (3.4-5.1) mmol/L Chloride 98 (98-107) mmol/L Carbon Dioxide 23 (22-32) mmol/L BUN 18 (9-20) mg/dL Creatinine 0.79 (0.66-1.25) mg/dL Estimated GFR > 60 (>60) mL/min BUN/Creatinine Ratio 22.8 H (6-22) Glucose 96 (80-110) mg/dL Calcium 8.9 (8.4-10.2) mg/dL Total Bilirubin 2.7 H (0.2-1.3) mg/dL AST 41 (17-59) IU/L ALT 37 (<50) IU/L Alkaline Phosphatase 121 (38-126) U/L Troponin I (0.01-0.034) ng/mL Total Protein 7.3 (6.3-8.2) g/dL Albumin 4.3 (3.5-5.0) g/dL Globulin 3.0 (1.7-4.1) g/dL Albumin/Globulin Ratio 1.4 (1.0-2.8) Lipase 64 (23-300) U/L 02/27/23 Range/Units 10:55 WBC (4.5-11.0) X10^3/uL RBC (4.5-5.9) X10^6/uL Hgb (13.5-17.5) g/dL Hct (41-53) % MCV (80-100) fL MCH (26-34) PG MCHC (30-36) % RDW (11.6-14.8) % Plt Count (150-400) X10^3/uL Neut % (Auto) (50-75) % Lymph % (Auto) (25-40) % [place] % (Auto) (3-14) % Eos % (Auto) (2-4) % Baso % (Auto) (0-2) % Neut # (Auto) (5458-6587) /uL Lymph # (Auto) (8986-3595) /uL [place] # (Auto) (0-900) /uL Eos # (Auto) (0-450) /uL Baso # (Auto) (0-100) /uL PT (10.1-12.7) SECONDS INR (0.9-1.3) APTT (26-36) SECONDS Sodium (137-145) mmol/L Potassium (3.4-5.1) mmol/L Chloride (98-107) mmol/L Carbon Dioxide (22-32) mmol/L BUN (9-20) mg/dL Creatinine (0.66-1.25) mg/dL Estimated GFR (>60) mL/min BUN/Creatinine Ratio (6-22) Glucose (80-110) mg/dL Calcium (8.4-10.2) mg/dL Total Bilirubin (0.2-1.3) mg/dL AST (17-59) IU/L ALT (<50) IU/L Alkaline Phosphatase (38-126) U/L Troponin I 0.030 (0.01-0.034) ng/mL Total Protein (6.3-8.2) g/dL Albumin (3.5-5.0) g/dL Globulin (1.7-4.1) g/dL Albumin/Globulin Ratio (1.0-2.8) Lipase (23-300) U/L MDM Narrative Medical decision making narrative: CC: Possible stroke, acute life-threatening potential Complicating co-morbidities: Hypertension, hyperlipidemia Data collected from: patient, , medics Medical records reviewed: None available Differential considered: Stroke, ocular trauma Exam documented above, pertinent findings include: Significant double vision, left eye is unable to look medial past midline and has medial partial hemianopsia. Bilateral vision does not have a hemianopsia. He is overall weaker on the right side tends to list to the right had some difficulty getting onto the gurney from the wheelchair and getting out of his car he did require wheelchair due to right-sided weakness. Is able to actually lift his leg and hold it for 5 seconds as he is able to do with his arm so his technical NIH score is 0. Total NIH score is 5 Lab Test results independently reviewed as above. Pertinent findings: Independently reviewed EKG atrial fibrillation at a rate of 91. No acute ischemic changes Imaging studies independently reviewed: CT brain shows no acute abnormalities CTA head and neck shows no acute finding After deterioration clinically, CT of the head is repeated radiology read indicates increased appearance of hyperdensity along the tentorium. Could be related to residual contrast from CTA however and recommendation is made for short interval CT follow-up. Consultations: Dr Roberto, stroke Neurology. With an NIH score of 5 wanted to review tPA with Neurology. I believe the double vision as well as the global weakness would be significantly detrimental for this gentleman and he to agrees because of that I do believe tPA is going to be appropriate given his minimal risks otherwise. Dr Roberto agreed that the benefits outweigh the risk and agreed with my decision for tPA administration. Treatments: TPA given Re-evaluations: Radiology neg head read 11:00 radiology neg CTA read 11:20 11:21 Discussion with pt and regarding TPA and risks. Would like to proceed with TPA stroke consult: 11:23 [place] to give TPA 11:30. Verbally discussed with pharmacist at same time TPA push 11:42 11:[address] Ji, neurology fellow . Will see if beds are available for transfer. Did ask if other options under scant were available. Will make calls to both [facility] and [facility] to see 1220 Dr Smith, neurology [facility] will accept admit. Pt and informed. Pt reexaminedto see if he is able to cross eyes and look medially with Left eye via different pathway. Seems slightly more confused and not able to follow instructions to cross eyes or follow finger in to nose 1226 Dr Laura, ironer [facility] will accept admit 1236 Nursing staff concerned with changed clincial status. Just completed i nfusion. More confusion, significant right-sided weakness now obvious, can lift right upper extremity against gravity but can not hold it same with right lower extremity. Seems to have mild receptive aphasia and his slurred speech is getting worse. NIH score Now up to 13 In light of deterioration, more detailed end of life discussions reviewed with patient and . states that he would absolutely not want to be intubated nor have CPR but everything up to that point would be appropriate. DNR/DNI 1255 Dr Laura. Discussed deterioration. Suggest a touching base with [facility] as intervention neurology is not available [facility]. Will review again with [facility] 1:10 IRENE Hernanedz. This would not be an interventional radiology case, if there is evidence of bleeding then neurosurgery would need to be consulted. 1:30 IREEN Hernandez returned call. Recommended repeat CTA right now, if there is a large vessel occlusion than can transfer to [facility] otherwise anticipated transfer to [facility] remains appropriate. 1:36 Dr Laura. Understands discussion with [facility] and providing the CTA currently being done showing no evidence of large vessel occlusion patient will be transferred to [facility]. [facility] if pending arrival 215 Dr Payne, radiology. NO bleeding and no LVO. 2:15 Pt and updated. Continued plans for transfer to [facility]. Pt protecting airway, somnolent, significant right-sided weakness. Discussion: 82-year-old gentleman with no prior history of atrial fibrillation acute onset of double vision at 8:30 a.m. this morning. Minor right-sided deficits such that he was having trouble getting out of the car, having trouble standing up without assistance, having trouble sitting if he is leaning toward the right side at all but formal NIH score testing is unremarkable for strength on the right side. After consultation with Neurology and shared decision making with the patient and his tPA was administered. Patient is stable post administration. Have talked with [facility] and patient will be admitted to their intensive care unit. Patient is aware of transfer plans. Questions are answered he is safe for transfer Acute deterioration with almost right-sided hemiparesis increased confusion. Repeat CT scan does not show obvious hemorrhagic conversion but does note increased hyperdensity along the tentorium. Updated [facility] ironer, confirmed again with [facility] neurology. Will continue to anticipate transfer to [facility] will upgrade transport to [facility]. Additional Information: MIPA: Stroke & Stroke Rehabilitation: Thrombolytic Therapy The patient, who arrived at the hospital within 2 hours of time last known well, was diagnosed with subacute or acute ischemic stroke. IV t-PA was initiated within 3 hours of time last known well. [SATISFIES MIPS PERFORMANCE] The patient was diagnosed with subacute or acute ischemic stroke. IV t-PA was not initiated within 3 hours of last known well due to arrival in the emergency department 2 hours and 47 minutes after onset, decision to initiate tPA 43 minutes after arrival in the apartment.: [MIPS PERFORMANCE EXCEPTION/EXCLUSION] Critical Care Time Critical Care Time Critical Care Time: Yes Total Critical Care Time: 67 Attestation: Critical care time is separate from other billable procedures. There is a high probability of a significant, sudden or life-threatening deterioration that requires my full and direct attention, intervention and personal management. This critical care time includes consultation with family and other consulting doctors, review of records, and interpretation of data from labs, EKGs and imaging as well as managements of acute stroke with administration of tPA. Discharge Plan Departure Patient Disposition: [facility] Clinical Impression: Atrial fibrillation, new onset Stroke Qualifiers: CVA mechanism: unspecified Qualified Code(s): I63.9 - Cerebral infarction, u nspecified Prescriptions: No Action atorvastatin [Lipitor] 40 MG tablet 40 mg PO BEDTIME Qty: 0 atenolol 25 MG tablet 25 mg PO QDAY Qty: 0 lisinopril 20 mg tablet 20 mg PO QAM Referrals: Emerson Fitzpatrick MD [Primary Care Provider] -
[2023-02-27 11:20] LABS: Alanine Aminotransferase 37 IU/L (<50); Albumin 4.3 g/dL (3.5-5.0); Albumin Globulin Ratio 1.4 (1.0-2.8); Alkaline Phosphatase 121 U/L (38-126); Aspartate Aminotransferase 41 IU/L (17-59); BUN Creatinine Ratio 22.8 (6-22); Bilirubin Total 2.7 mg/dL (0.2-1.3); Blood Urea Nitrogen 18 mg/dL (9-20); Calcium 8.9 mg/dL (8.4-10.2); Carbon Dioxide 23 mmol/L (22-32); Chloride 98 mmol/L (98-107); Estimated Glomerular Filt Rate > 60 mL/min (>60); Glucose 96 mg/dL (80-110); HEMOLYSIS < 15 (0-50); Lipase 64 U/L (23-300); Potassium 4.4 mmol/L (3.4-5.1); Sodium 130 mmol/L (137-145); Total Protein 7.3 g/dL (6.3-8.2)
[2023-02-27] MEDS: ALTEPLASE 408 MG IV (11:42)
[2023-02-27] MEDS: ALTEPLASE IV (11:45)
--- NOTE | 2023-02-27 12:03 | PC.NURSE ---
pt states he is still experiencing double vision.
--- NOTE | 2023-02-27 12:34 | DI.CT.S_ITS ---
PROCEDURE: CT HEAD/BRAIN WO CON INDICATIONS: worsening after TPA TECHNIQUE: Noncontrast 4.5 mm thick angled axial sections acquired from the foramen magnum to the vertex, with coronal and sagittal reformats. For radiation dose reduction, the following was used: automated exposure control, adjustment of mA and/or kV according to patient size. COMPARISON: [facility], CT, CT ANGIO HEAD AND NECK, 02/27/2023, 10:59. [facility], CT, CT STROKE, 02/27/2023, 10:55. FINDINGS: Image quality: Motion is present, limiting evaluation. CSF spaces: Basal cisterns are patent. No extra-axial fluid collections. The ventricles are symmetric in size and shape. Brain: There is increased appearance of hyperdensity within the tentorium.. There is cerebral volume loss for age, with resultant ventricular and sulcal prominence. There are periventricular and deep white matter chronic small vessel ischemic changes. There is intracranial internal carotid artery atherosclerosis. Old left subinsular focus of infarction. Skull and face: Calvarium and visualized facial bones appear intact, without suspicious lesions. Sinuses: Visualized sinuses and mastoids are clear. IMPRESSION: 1. Increased appearance of hyperdensity along the tentorium. This could be related to residual contrast from contrast administered for CT a exam 2 hours prior. However top, to definitively exclude hemorrhage, short interval CT follow-up is recommended. 2. Moderate atrophy and chronic microvascular ischemic changes. Dictated by: Ruby Cruz M.D. on 02/27/2023 at 12:50 Approved by: Ruby Cruz M.D. on 02/27/2023 at 12:53
--- NOTE | 2023-02-27 12:42 | PC.NURSE ---
Addendum entered by Inez Flores CNA 02/27/23 14:15: 1451 Dr Rodgers updated pt's regarding status of transfer and CT angio. pt will be going to [facility] via [facility]. Addendum entered by Inez Flores CNA 02/27/23 14:08: 1408 pt moving right lower extremity spontaneously while resting. Addendum entered by Inez Flores CNA 02/27/23 13:59: [address] for repeat CT angio. pt moving right lower extremity slightly during CT procedure. Addendum entered by Inez Flores CNA 02/27/23 13:34: Pt requiring occasional suctioning. Addendum entered by Inez Flores CNA 02/27/23 12:55: 1245 pt unable to manage secretions. sod stripper asked pt's their wishes to intubate. stated she did not wish to have her intubated. sod stripper updated Dr Rodgers. Original Note: 1235 pt decompensating. taken to CT. 1243 NIH performed by enzo carrillo. PT unable to lift right leg or right arm, speech slurred and right sided facial droop. Pt aphasic and difficult to arouse. Dr Rodgers notified.
--- NOTE | 2023-02-27 13:28 | DI.CT.S_ITS ---
PROCEDURE: CT ANGIO HEAD AND NECK INDICATIONS: clinical deterioration. Evaluate for large vessel occlusion TECHNIQUE: Pre-contrast 4.5 mm thick sections acquired from the foramen magnum to the vertex. After the administration of intravenous contrast, 1 mm thick sections acquired from the aortic arch through the [place] of [place]. Post-contrast 4.5 mm thick sections then re-acquired from the foramen magnum to the vertex. 3-dimensional ngbfwsg-krliwrecs-jvjvnlgfti (MIP) and/or volume rendering reformats were acquired of the central intracranial vasculature and neck separately. For radiation dose reduction, the following was used: automated exposure control, adjustment of mA and/or kV according to patient size. COMPARISON: [facility], CT, CT STROKE, 02/27/2023, 10:55. [facility], CT, CT HEAD/BRAIN WO CON, 02/27/2023, 12:42. [facility], CT, CT ANGIO HEAD AND NECK, 02/27/2023, 10:59. FINDINGS: Image quality: Excellent. BRAIN: CSF spaces: Ventricles are normal in size and shape. Basal cisterns are patent. No extra-axial fluid collections. Brain: No midline shift. No intracranial bleeds or masses. [place]-white matter interface appears intact. Skull and face: Calvarium and facial bones appear intact, without suspicious lesions. Orbits appear normal. Sinuses: Sinuses and mastoids are clear. HEAD CT ANGIOGRAPHY: Anterior circulation: Intracranial internal carotid arteries are normal in size and flow. The flow within the paired anterior cerebral arteries is normal and symmetric. The flow within the middle cerebral arteries is normal and symmetric. The anterior communicating artery is seen. No aneurysms are seen. Posterior circulation: Visualized portions of the vertebral arteries demonstrate normal caliber, and join to form a normal appearing basilar artery. Flow within the posterior cerebral arteries is normal and symmetric. No aneurysms are seen. NECK CT ANGIOGRAPHY: Carotid system: The great vessels demonstrate a conventional anatomy as they arise from the aortic arch. The origins of the common carotid arteries appear patent. The common carotid arteries demonstrate normal caliber and courses. The bifurcation regions demonstrate atherosclerotic calcification, with approximately 30% narrowing involving the right proximal internal carotid artery. No hemodynamically significant stenosis can be seen on the left. The more distal internal carotid arteries demonstrate normal course and caliber. Posterior circulation: The origins of the vertebral arteries both appear widely patent. The more superior extracranial portions of both vertebral arteries also demonstrate normal courses and calibers. The left vertebral artery is dominant to the right. Soft tissues: Visualized neck soft tissues demonstrate no suspicious abnormalities. Bones: No suspicious bony lesions. Visualized cervical spine appears normally aligned. Age-appropriate bony degenerative changes are seen. IMPRESSION: No significant interval change can be seen. No large vessel occlusion can be seen. No acute intracranial hemorrhage is seen. No acute intracranial process is seen. No significant intracranial arterial abnormality is seen. Within the arteries of the neck, no hemodynamically significant stenosis can be seen. If there is strong clinical suspicion for an acute stroke, please consider a brain MRI for further evaluation, as it is more sensitive (assuming that there is no contraindication to MRI). Note: Case discussed by telephone with Dr. Rodgers at 1:13 p.m. on February 27, 2023. Any quantitative measurements of stenosis were performed using NASCET criteria. Dictated by: Dragan Payne M.D. on 02/27/2023 at 13:10 Approved by: Dragan Payne M.D. on 02/27/2023 at 13:14
== END 2023-02-27 14:38 | disposition short-term general hospital (02) ==
PROVIDERS: Emergency Provider Emergency Medicine; Family Provider Internal Medicine; PCP Internal Medicine
DX: I63.9 Cerebral infarction, unspecified (principal); I48.91 Unspecified atrial fibrillation; R29.705 NIHSS score 5
CPT/HCPCS: 36415; 70450; 70496; 70498; 80053; 83690; 84484; 85025; 85610; 85730; 93005; 96365; 99285; 99291; 99292; J2997; Q9967

== ENCOUNTER 2023-06-02 11:45 | Outpatient (RCR) | payer MEDICARE, SELFPAY ==
--- NOTE | 2023-04-10 14:55 | PT.OIE ---
Current Diagnoses Cerebral infarction, unspecified (04/10/23) Past Medical History (Last Updated 02/27/23 @ 11:19 by Kitty Rodgers MD) Hyperlipidemia Hypertension Visit Care Team Role Provider Type Iliana Saravia PA-C Family Provider Advanced Market Superintendent Primary Care Provider Specialty: Medical Address: [address] [place] [address], [id number] Email: Marlen Garibay MD Attending Provider Physician Referring Provider Specialty: Internal Medicine Address: [place], [address] Phone: Email: Physical Therapy Initial Evaluation PT-OP-A Visit Information Start: 04/10/23 12:59 Freq: Status: Active Protocol: Document 04/10/23 12:59 AB (Rec: 04/10/23 14:54 AB [id number]) Out-Patient Physical Therapy Visit Information Visit Information Visit Type Initial Evaluation Visit Start Time 13:00 Visit Stop Time 13:45 Total Visit Minutes 45 Visit Number 1 Number of PASSENGER RELATIONS REPRESENTATIVE Visits 0 PT-OP-B Current Condition Start: 04/10/23 12:59 Freq: Status: Active Protocol: Document 04/10/23 12:59 AB (Rec: 04/10/23 14:54 AB [id number]) Current Condition History of Current Condition Onset Date Chronic Current Complaints right low back/hip pain 8/10 at worst, 0-1/10 History of Current Condition The pt reports he suffered a stroke on 02/27/23, which caused some right sided weakness, though he states these have resolved mostly, except he continues with memory deficits. He states went to [place], but he states they did nothing for him. [Chart review actually shows he was d/c to [facility] for additional rehab.] The pt reports history of right low back/hip pain that goes down his leg, which began years ago . This pain inhibits his ability to stand or walk for prolonged periods, and he endorses N/T in RLE occasionally. He reports he got a shot in his back to help his symptoms but it didn't help, but then he tried a second which relieved symptoms 80-90% for about 6-8 weeks, however he then suffered a stroke and wasn't able to continue with his treatment. He also reports hx of bilateral CHUCK. The pt presents with SPC, though he reports he doesn't use it much when he is on his own. He also states he has a FWW which he uses in he mornings to get going. Prior Treatments and Tests Cortisone injections? Treatment Goals Patient/Caregiver Goals To help improve his symptoms PT-OP-C Subjective Start: 04/10/23 12:59 Freq: Status: Active Protocol: Document 04/10/23 12:59 AB (Rec: 04/10/23 14:54 AB [id number]) OP-PT Subjective Patient Comments Patient Comments See hx of current condition PT-OP-G Mobility & Gait Start: 04/10/23 12:59 Freq: Status: Active Protocol: Document 04/10/23 12:59 AB (Rec: 04/10/23 14:54 AB [id number]) OP Gait Assessment Gait Gait Assistance Required: Independent Assistive Devices Assistive Device None,Straight Cane Gait Deviations General Gait Pattern Decreased Stride Length, Decreased Feet Clearance, Flexed Trunk Factors Limiting Gait Function Factors Limiting Gait Function Decreased Activity Tolerance, Decreased Strength,Limited Range of Motion,Pain Comments Gait Comments The pt lakcs heel-toe pattern, though it is not shuffling. Decreased hip flexion and extension limit his step length PT-OP-K Range of Motion Start: 04/10/23 12:59 Freq: Status: Active Protocol: Document 04/10/23 12:59 AB (Rec: 04/10/23 14:54 AB [id number]) Lumbar Spine Range of Motion Lumbar Spine Active Degrees Testing Position Standing Extension 10 Rotation Left 30 Rotation Right 30 Comments flexion: mid shins SB: distal thigh bilaterally Reproduction of symptoms with flexion, bilateral SB and rotation to R; all on right low back Hip Goniometric Range of Motion Hip Right Active Flexion w/Knee Flexed 100 Internal Rotation 35 External Rotation 20 Left Active Flexion w/Knee Flexed 100 Internal Rotation 35 External Rotation 25 PT-OP-M Strength Start: 04/10/23 12:59 Freq: Status: Active Protocol: Document 04/10/23 12:59 AB (Rec: 04/10/23 14:54 AB [id number]) Hip Strength Hip Manual Muscle Testing Right Flexion (L2) 4 Good Extension (S1) 3+ Fair+ Abduction 4- Good- Adduction 4 Good External Rotation 4- Good- Internal Rotation 4- Good- Left Flexion (L2) 4+ Good+ Extension (S1) 3+ Fair+ Abduction 4- Good- Adduction 4 Good External Rotation 4 Good Internal Rotation 4 Good Knee Strength Knee Manual Muscle Testing Right Flexion (S2) 4 Good Extension (L3) 4+ Good+ Left Flexion (S2) 4+ Good+ Extension (L3) 5 Normal PT-OP-T Assessment and Plan Start: 04/10/23 12:59 Freq: Status: Active Protocol: Document 04/10/23 12:59 AB (Rec: 04/10/23 14:54 AB [id number]) Physical Therapy Assessment Rehab Potential Rehabilitation Potential Good Evaluation Complexity Number of Personal Factors/Comorbidities 1-2 Number of Body Systems Impaired 1-2 Clinical Presentation at Evaluation Stable Impairments Impairments Activity Tolerance,Functional Mobility,Gait,Pain,ROM, Strength Goals Six Impairment Strength Short Term Goal (STG) Pt's gross LE MMT scores to improve to 4/5 or better to show improving muscular strength to improve ability to perform functional mobility and to decrease symptoms. STG Duration 4 Intermediate Goal (LTG) Pt's gross LE MMT scores to improve to 4+/5 or better to show improving muscular strength to improve ability to perform functional mobility and to decrease symptoms. LTG Duration 6 Five Impairment AROM deficits Short Term Goal (STG) Pt's bilateral hip external rotation AROM to improve to 30 degrees or better to show show improving mobility to improve ability to perform ADLs and IADLs, and to improve gait mechanics. STG Duration 4 Disability Aide Goal (LTG) Pt's bilateral hip external rotation AROM to improve to 35 degrees or better to show show improving mobility to improve ability to perform ADLs and IADLs, and to improve gait mechanics. LTG Duration 6 Four Impairment AROM deficits Short Term Goal (STG) Pt's bilateral hip internal rotation AROM to improve to 40 degrees or better to show show improving mobility to improve ability to perform ADLs and IADLs and to improve gait mechanics. STG Duration 4 Intermediate Goal (LTG) Pt's bilateral hip internal rotation AROM to improve to 45 degrees or better to show show improving mobility to improve ability to perform ADLs and IADLs and to improve gait mechanics. LTG Duration 6 Three Impairment AROM deficits Short Term Goal (STG) Pt's lumbar spine bilateral rotation AROM to improve to 35 degrees with minimal to no pain to show improving mobility to improve ability to perform ADLs and IADLs. STG Duration 4 Disability Aide Goal (LTG) Pt's lumbar spine bilateral rotation AROM to improve to 40 degrees with minimal to no pain to show improving mobility to improve ability to perform ADLs and IADLs. LTG Duration 6 Two Impairment AROM deficits Short Term Goal (STG) Pt's lumbar spine bilateral lateral flexion (side bending) AROM to improve to superior patella with minimal to no pain to show improving mobility to improve ability to perform ADLs and IADLs. STG Duration 4 Disability Aide Goal (LTG) Pt's lumbar spine bilateral lateral flexion (side bending) AROM to improve to mid joint line with minimal to no pain to show improving mobility to improve ability to perform ADLs and IADLs. LTG Duration 6 One Impairment AROM deficits Short Term Goal (STG) Pt's lumbar spine flexion AROM to improve to distal shins with minimal to no pain to show improving mobility to improve ability to perform ADLs and IADLs. STG Duration 4 Disability Aide Goal (LTG) Pt's lumbar spine flexion AROM to improve to ankles with minimal to no pain to show improving mobility to improve ability to perform ADLs and IADLs. LTG Duration 6 Assessment Summary Assessment Júnior Clemons is an 82 year old male patient who presents to outpatient PT clinic with complaints of right hip/low back pain which is chronic in nature and is exacerbated by walking or standing for prolonged periods . Of note, he also suffered a stroke on 02/27/23 which causes right sided weakness, though he reports he does not have significant deficits from the stroke. Today's PT evaluation revealed lumbar and hip AROM deficits, LE muscular weakness (R>L), and gait abnormalities which may be contributing to the pt's symptom presentation and may be limiting his ability to perform IADLs and participate in recreational activities. Based on these findings, the pt would benefit from a trial of skilled PT to improve his deficits and increase his level of function . Continued assessment to ensure no residual stroke related deficits are present, such as balance or coordination deficits, is needed in future visits. Physical Therapy Plan Frequency and Duration Frequency of Treatment 2x/Week Duration of treatment (weeks) 6 Plan of Care Start Date 04/10/23 Plan of Care End Date 05/22/23 Therapeutic Interventions Therapeutic Interventions Balance Training,Gait Training ,Home Exercise Program,Joint Mobilizations,Manual Therapy, Neuromuscular Re-education, Patient/Caregiver Education, Self-Care/Home Management,Soft Tissue Mobilization,Taping, Therapeutic Activities, Therapeutic Exercises Next Visit Focus/Plan Next Note Type Treatment Note Next Visit Plan Establish HEP. Add core and LE strength and mobility exercises. Have pt complete LEFS and modified Oswestry
--- NOTE | 2023-04-10 14:56 | PT.OPPOC ---
Physical, Occupational & Speech Therapy At [facility] Current Diagnoses Cerebral infarction, unspecified (04/10/23) Visit Care Team Role Provider Type Iliana Saravia PA-C Family Provider Advanced Intrusion Analyst Primary Care Provider Specialty: Medical Address: [address] [place] [address], [address] Email: Marlen Garibay MD Attending Provider Physician Referring Provider Specialty: Internal Medicine Address: [place], [address] Phone: Email: Plan Of Care PT-OP-T Assessment and Plan Start: 04/10/23 12:59 Freq: Status: Active Protocol: Document 04/10/23 12:59 AB (Rec: 04/10/23 14:54 AB [id number]) Physical Therapy Assessment Rehab Potential Rehabilitation Potential Good Evaluation Complexity Number of Personal Factors/Comorbidities 1-2 Number of Body Systems Impaired 1-2 Clinical Presentation at Evaluation Stable Impairments Impairments Activity Tolerance,Functional Mobility,Gait,Pain,ROM, Strength Goals Six Impairment Strength Short Term Goal (STG) Pt's gross LE MMT scores to improve to 4/5 or better to show improving muscular strength to improve ability to perform functional mobility and to decrease symptoms. STG Duration 4 Assisted Goal (LTG) Pt's gross LE MMT scores to improve to 4+/5 or better to show improving muscular strength to improve ability to perform functional mobility and to decrease symptoms. LTG Duration 6 Five Impairment AROM deficits Short Term Goal (STG) Pt's bilateral hip external rotation AROM to improve to 30 degrees or better to show show improving mobility to improve ability to perform ADLs and IADLs, and to improve gait mechanics. STG Duration 4 Machine Sand Mixer Goal (LTG) Pt's bilateral hip external rotation AROM to improve to 35 degrees or better to show show improving mobility to improve ability to perform ADLs and IADLs, and to improve gait mechanics. LTG Duration 6 Four Impairment AROM deficits Short Term Goal (STG) Pt's bilateral hip internal rotation AROM to improve to 40 degrees or better to show show improving mobility to improve ability to perform ADLs and IADLs and to improve gait mechanics. STG Duration 4 Assisted Goal (LTG) Pt's bilateral hip internal rotation AROM to improve to 45 degrees or better to show show improving mobility to improve ability to perform ADLs and IADLs and to improve gait mechanics. LTG Duration 6 Three Impairment AROM deficits Short Term Goal (STG) Pt's lumbar spine bilateral rotation AROM to improve to 35 degrees with minimal to no pain to show improving mobility to improve ability to perform ADLs and IADLs. STG Duration 4 Machine Sand Mixer Goal (LTG) Pt's lumbar spine bilateral rotation AROM to improve to 40 degrees with minimal to no pain to show improving mobility to improve ability to perform ADLs and IADLs. LTG Duration 6 Two Impairment AROM deficits Short Term Goal (STG) Pt's lumbar spine bilateral lateral flexion (side bending) AROM to improve to superior patella with minimal to no pain to show improving mobility to improve ability to perform ADLs and IADLs. STG Duration 4 Assisted Goal (LTG) Pt's lumbar spine bilateral lateral flexion (side bending) AROM to improve to mid joint line with minimal to no pain to show improving mobility to improve ability to perform ADLs and IADLs. LTG Duration 6 One Impairment AROM deficits Short Term Goal (STG) Pt's lumbar spine flexion AROM to improve to distal shins with minimal to no pain to show improving mobility to improve ability to perform ADLs and IADLs. STG Duration 4 Machine Sand Mixer Goal (LTG) Pt's lumbar spine flexion AROM to improve to ankles with minimal to no pain to show improving mobility to improve ability to perform ADLs and IADLs. LTG Duration 6 Assessment Summary Assessment Júnior Clemons is an 82 year old male patient who presents to outpatient PT clinic with complaints of right hip/low back pain which is chronic in nature and is exacerbated by walking or standing for prolonged periods . Of note, he also suffered a stroke on 02/27/23 which causes right sided weakness, though he reports he does not have significant deficits from the stroke. Today's PT evaluation revealed lumbar and hip AROM deficits, LE muscular weakness (R>L), and gait abnormalities which may be contributing to the pt's symptom presentation and may be limiting his ability to perform IADLs and participate in recreational activities. Based on these findings, the pt would benefit from a trial of skilled PT to improve his deficits and increase his level of function . Continued assessment to ensure no residual stroke related deficits are present, such as balance or coordination deficits, is needed in future visits. Physical Therapy Plan Frequency and Duration Frequency of Treatment 2x/Week Duration of treatment (weeks) 6 Plan of Care Start Date 04/10/23 Plan of Care End Date 05/22/23 Therapeutic Interventions Therapeutic Interventions Balance Training,Gait Training ,Home Exercise Program,Joint Mobilizations,Manual Therapy, Neuromuscular Re-education, Patient/Caregiver Education, Self-Care/Home Management,Soft Tissue Mobilization,Taping, Therapeutic Activities, Therapeutic Exercises Next Visit Focus/Plan Next Note Type Treatment Note Next Visit Plan Establish HEP. Add core and LE strength and mobility exercises. Have pt complete LEFS and modified Oswestry Plan of Care Dates Plan of Care Start Date 04/10/23 Plan of Care End Date 05/22/23 Electronically Signed by: Deandre Munoz, PT 04/10/23 [id number] If you are in agreement with this Plan of Care, please return a signed and dated copy. I have reviewed this Plan of Care and certify that the skilled therapy services above are required to meet the patient?s needs. Physician Signature Date Printed Name and Credentials Clinical Instructor Signature Printed Name and Credentials
--- NOTE | 2023-04-16 14:13 | PT.OTN ---
Current Diagnoses Cerebral infarction, unspecified (04/16/23) Physical Therapy Treatment Note PT-OP-A Visit Information Start: 04/10/23 12:59 Freq: Status: Active Protocol: Document 04/16/23 11:58 AB (Rec: 04/16/23 14:13 AB [id number]) Out-Patient Physical Therapy Visit Information Visit Information Visit Type Treatment Note Visit Start Time 11:55 Visit Stop Time 12:35 Total Visit Minutes 40 Visit Number 2 Number of CLOTH PRINTING INSPECTOR Visits 0 Evaluation Information Evaluation Date 04/10/23 PT-OP-B Current Condition Start: 04/10/23 12:59 Freq: Status: Active Protocol: Document 04/10/23 12:59 AB (Rec: 04/10/23 14:54 AB [id number]) Current Condition History of Current Condition Onset Date Chronic Current Complaints right low back/hip pain 8/10 at worst, 0-1/10 History of Current Condition The pt reports he sufferred a stroke on 02/27/23, which caused some right sided weakness, though he states these have resolved mostly, 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 He states went to [place], but he states they did nothing for him. [Chart reiview actually shows he was d/c to [facility] for additional rehab.] The pt reports history of right low back/hip pain that goes down his leg, which began years ago . This pain inhibits his ability to stand or walk for prolonged periods, and he endorses N/T in RLE occassionally. He reports he got a shot in his back to help his symptoms but it didn't help, but then he tried a second which relieved symptoms 80-90% for about 6-8 weeks, however he then sufferred a stroke and wasn't able to continue with his treatment. He also reports hx of bilateral CHUCK. The pt presents with SPC, though he reports he doesn't use it much when he is on his own. He also states he has a FWW which he uses in he mornings to get going. Prior Treatments and Tests Cortisone injections? Treatment Goals Patient/Caregiver Goals To help improve his symptoms PT-OP-C Subjective Start: 04/10/23 12:59 Freq: Status: Active Protocol: Document 04/16/23 11:58 AB (Rec: 04/16/23 14:13 AB [id number]) OP-PT Subjective Patient Comments Patient Comments The pt reports his right leg is furting when he stands or walks. He reports he fell a few days ago when he tripped on his bed spread. PT-OP-G Mobility & Gait Start: 04/10/23 12:59 Freq: Status: Active Protocol: Document 04/10/23 12:59 AB (Rec: 04/10/23 14:54 AB [id number]) OP Gait Assessment Gait Gait Assistance Required: Independent Assistive Devices Assistive Device None,Straight Cane Gait Deviations General Gait Pattern Decreased Stride Length, Decreased Feet Clearance, Flexed Trunk Factors Limiting Gait Function Factors Limiting Gait Function Decreased Activity Tolerance, Decreased Strength,Limited Range of Motion,Pain Comments Gait Comments The pt lakcs heel-toe pattern, though it is not shuffling. Decreased hip flexion and extension limit his step length PT-OP-K Range of Motion Start: 04/10/23 12:59 Freq: Status: Active Protocol: Document 04/10/23 12:59 AB (Rec: 04/10/23 14:54 AB [id number]) Lumbar Spine Range of Motion Lumbar Spine Active Degrees Testing Position Standing Extension 10 Rotation Left 30 Rotation Right 30 Comments flexion: mid shins SB: distal thigh bilaterally Reproduction of symptoms with flexion, bilateral SB and rotation to R; all on right low back Hip Goniometric Range of Motion Hip Right Active Flexion w/Knee Flexed 100 Internal Rotation 35 External Rotation 20 Left Active Flexion w/Knee Flexed 100 Internal Rotation 35 External Rotation 25 PT-OP-M Strength Start: 04/10/23 12:59 Freq: Status: Active Protocol: Document 04/10/23 12:59 AB (Rec: 04/10/23 14:54 AB [id number]) Hip Strength Hip Manual Muscle Testing Right Flexion (L2) 4 Good Extension (S1) 3+ Fair+ Abduction 4- Good- Adduction 4 Good External Rotation 4- Good- Internal Rotation 4- Good- Left Flexion (L2) 4+ Good+ Extension (S1) 3+ Fair+ Abduction 4- Good- Adduction 4 Good External Rotation 4 Good Internal Rotation 4 Good Knee Strength Knee Manual Muscle Testing Right Flexion (S2) 4 Good Extension (L3) 4+ Good+ Left Flexion (S2) 4+ Good+ Extension (L3) 5 Normal PT-OP-Q Treatments Start: 04/10/23 12:59 Freq: Status: Active Protocol: Document 04/16/23 11:58 AB (Rec: 04/16/23 14:13 AB [id number]) Cardio Equipment Recumbent Elliptical (Biodex) Duration (Minutes) 7 Seat Position 13 Therapeutic Exercises Sitting Exercises LAQs Side bilateral Reps/Minutes 2x10 ea Comments added to HEP Hip ABD Sitting Exercise Name Seated clamshells Side bilateral Resistance level 2 teal TB Reps/Minutes 2x15 Comments added to HEP Hip ADD Sitting Exercise Name Hip ADD ball squeeze Side bilateral Equipment Used small blue ball Reps/Minutes 2x15, 3 sec hold Comments added to HEP Marching Side bilateral Reps/Minutes 2x10 ea Comments added to HEP Standing Exercises Heel raises Side bilateral Reps/Minutes 2x15 Comments BUE support STS Equipment Used 2x5 Comments with BUE support; added to HEP PT-OP-T Assessment and Plan Start: 04/10/23 12:59 Freq: Status: Active Protocol: Document 04/16/23 11:58 AB (Rec: 04/16/23 14:13 AB [id number]) Physical Therapy Assessment Goals Six Impairment Strength Short Term Goal (STG) Pt's gross LE MMT scores to improve to 4/5 or better to show improving muscular strength to improve ability to perform functional mobility and to decrease symptoms. STG Duration 4 Nursing Home Goal (LTG) Pt's gross LE MMT scores to improve to 4+/5 or better to show improving muscular strength to improve ability to perform functional mobility and to decrease symptoms. LTG Duration 6 Five Impairment AROM deficits Short Term Goal (STG) Pt's bilateral hip external rotation AROM to improve to 30 degrees or better to show show improving mobility to improve ability to perform ADLs and IADLs, and to improve gait mechanics. STG Duration 4 Loading Unit Operator Crimping Goal (LTG) Pt's bilateral hip external rotation AROM to improve to 35 degrees or better to show show improving mobility to improve ability to perform ADLs and IADLs, and to improve gait mechanics. LTG Duration 6 Four Impairment AROM deficits Short Term Goal (STG) Pt's bilateral hip internal rotation AROM to improve to 40 degrees or better to show show improving mobility to improve ability to perform ADLs and IADLs and to improve gait mechanics. STG Duration 4 Loading Unit Operator Crimping Goal (LTG) Pt's bilateral hip internal rotation AROM to improve to 45 degrees or better to show show improving mobility to improve ability to perform ADLs and IADLs and to improve gait mechanics. LTG Duration 6 Three Impairment AROM deficits Short Term Goal (STG) Pt's lumbar spine bilateral rotation AROM to improve to 35 degrees with minimal to no pain to show improving mobility to improve ability to perform ADLs and IADLs. STG Duration 4 Loading Unit Operator Crimping Goal (LTG) Pt's lumbar spine bilateral rotation AROM to improve to 40 degrees with minimal to no pain to show improving mobility to improve ability to perform ADLs and IADLs. LTG Duration 6 Two Impairment AROM deficits Short Term Goal (STG) Pt's lumbar spine bilateral lateral flexion (side bending) AROM to improve to superior patella with minimal to no pain to show improving mobility to improve ability to perform ADLs and IADLs. STG Duration 4 Nursing Home Goal (LTG) Pt's lumbar spine bilateral lateral flexion (side bending) AROM to improve to mid joint line with minimal to no pain to show improving mobility to improve ability to perform ADLs and IADLs. LTG Duration 6 One Impairment AROM deficits Short Term Goal (STG) Pt's lumbar spine flexion AROM to improve to distal shins with minimal to no pain to show improving mobility to improve ability to perform ADLs and IADLs. STG Duration 4 Loading Unit Operator Crimping Goal (LTG) Pt's lumbar spine flexion AROM to improve to ankles with minimal to no pain to show improving mobility to improve ability to perform ADLs and IADLs. LTG Duration 6 Assessment Summary Assessment Due to reports of increase right LE pain/discomfort, exercises today were mostly limited to sitting. He was able to perform recumbent elliptical and seated exercises without discomfort. However, he had difficulty performing LAQs on RLE due to weakness. He had slight increase in pain/discomfort with STS and heel raises, but reports this was mild. The pt was educated on proper hand and foot placement when performing STS in order to increase efficiency and safety. The pt would benefit from continued skilled PT to improve his symptoms in order to improve his level of function and reduce his risk for falls. Physical Therapy Plan Frequency and Duration Frequency of Treatment 2x/Week Duration of treatment (weeks) 6 Plan of Care Start Date 04/10/23 Plan of Care End Date 05/22/23 Therapeutic Interventions Therapeutic Interventions Balance Training,Gait Training ,Home Exercise Program,Joint Mobilizations,Manual Therapy, Neuromuscular Re-education, Patient/Caregiver Education, Self-Care/Home Management,Soft Tissue Mobilization,Taping, Therapeutic Activities, Therapeutic Exercises Next Visit Focus/Plan Next Note Type Treatment Note Next Visit Plan Review HEP. Add core and LE strength and mobility exercises as tolerated.
--- NOTE | 2023-04-16 14:15 | PT.OTN ---
Current Diagnoses Cerebral infarction, unspecified (04/16/23) Physical Therapy Treatment Note PT-OP-A Visit Information Start: 04/10/23 12:59 Freq: Status: Active Protocol: Document 04/16/23 11:58 AB (Rec: 04/16/23 14:13 AB [id number]) Out-Patient Physical Therapy Visit Information Visit Information Visit Type Treatment Note Visit Start Time 11:55 Visit Stop Time 12:35 Total Visit Minutes 40 Visit Number 2 Number of MANGLE OPERATOR GARMENTS Visits 0 Evaluation Information Evaluation Date 04/10/23 PT-OP-B Current Condition Start: 04/10/23 12:59 Freq: Status: Active Protocol: Document 04/10/23 12:59 AB (Rec: 04/10/23 14:54 AB [id number]) Current Condition History of Current Condition Onset Date Chronic Current Complaints right low back/hip pain 8/10 at worst, 0-1/10 History of Current Condition The pt reports he suffered a stroke on 02/27/23, which caused some right sided weakness, though he states these have resolved mostly, except he continues with memory deficits. He states went to [place], but he states they did nothing for him. [Chart review actually shows he was d/c to [facility] for additional rehab.] The pt reports history of right low back/hip pain that goes down his leg, which began years ago . This pain inhibits his ability to stand or walk for prolonged periods, and he endorses N/T in RLE occasionally. He reports he got a shot in his back to help his symptoms but it didn't help, but then he tried a second which relieved symptoms 80-90% for about 6-8 weeks, however he then suffered a stroke and wasn't able to continue with his treatment. He also reports hx of bilateral CHUCK. The pt presents with SPC, though he reports he doesn't use it much when he is on his own. He also states he has a FWW which he uses in he mornings to get going. Prior Treatments and Tests Cortisone injections? Treatment Goals Patient/Caregiver Goals To help improve his symptoms PT-OP-C Subjective Start: 04/10/23 12:59 Freq: Status: Active Protocol: Document 04/16/23 11:58 AB (Rec: 04/16/23 14:13 AB [id number]) OP-PT Subjective Patient Comments Patient Comments The pt reports his right leg is hurting when he stands or walks. He reports he fell a few days ago when he tripped on his bed spread. Patient Questionnaires Lower Extremity Functional Scale LEFS Score 45/80 LEFS Impairment 40 to 59% Impaired (Score 32- 47) Oswestry Low Back Index Oswestry Score 8/50 Oswestry Impairment 1 to 19% Impaired (Score 1-19) PT-OP-G Mobility & Gait Start: 04/10/23 12:59 Freq: Status: Active Protocol: Document 04/10/23 12:59 AB (Rec: 04/10/23 14:54 AB [id number]) OP Gait Assessment Gait Gait Assistance Required: Independent Assistive Devices Assistive Device None,Straight Cane Gait Deviations General Gait Pattern Decreased Stride Length, Decreased Feet Clearance, Flexed Trunk Factors Limiting Gait Function Factors Limiting Gait Function Decreased Activity Tolerance, Decreased Strength,Limited Range of Motion,Pain Comments Gait Comments The pt lakcs heel-toe pattern, though it is not shuffling. Decreased hip flexion and extension limit his step length PT-OP-K Range of Motion Start: 04/10/23 12:59 Freq: Status: Active Protocol: Document 04/10/23 12:59 AB (Rec: 04/10/23 14:54 AB [id number]) Lumbar Spine Range of Motion Lumbar Spine Active Degrees Testing Position Standing Extension 10 Rotation Left 30 Rotation Right 30 Comments flexion: mid shins SB: distal thigh bilaterally Reproduction of symptoms with flexion, bilateral SB and rotation to R; all on right low back Hip Goniometric Range of Motion Hip Right Active Flexion w/Knee Flexed 100 Internal Rotation 35 External Rotation 20 Left Active Flexion w/Knee Flexed 100 Internal Rotation 35 External Rotation 25 PT-OP-M Strength Start: 04/10/23 12:59 Freq: Status: Active Protocol: Document 04/10/23 12:59 AB (Rec: 04/10/23 14:54 AB [id number]) Hip Strength Hip Manual Muscle Testing Right Flexion (L2) 4 Good Extension (S1) 3+ Fair+ Abduction 4- Good- Adduction 4 Good External Rotation 4- Good- Internal Rotation 4- Good- Left Flexion (L2) 4+ Good+ Extension (S1) 3+ Fair+ Abduction 4- Good- Adduction 4 Good External Rotation 4 Good Internal Rotation 4 Good Knee Strength Knee Manual Muscle Testing Right Flexion (S2) 4 Good Extension (L3) 4+ Good+ Left Flexion (S2) 4+ Good+ Extension (L3) 5 Normal PT-OP-Q Treatments Start: 04/10/23 12:59 Freq: Status: Active Protocol: Document 04/16/23 11:58 AB (Rec: 04/16/23 14:13 AB [id number]) Cardio Equipment Recumbent Elliptical (Biodex) Duration (Minutes) 7 Seat Position 13 Therapeutic Exercises Sitting Exercises LAQs Side bilateral Reps/Minutes 2x10 ea Comments added to HEP Hip ABD Sitting Exercise Name Seated clamshells Side bilateral Resistance level 2 teal TB Reps/Minutes 2x15 Comments added to HEP Hip ADD Sitting Exercise Name Hip ADD ball squeeze Side bilateral Equipment Used small blue ball Reps/Minutes 2x15, 3 sec hold Comments added to HEP Marching Side bilateral Reps/Minutes 2x10 ea Comments added to HEP Standing Exercises Heel raises Side bilateral Reps/Minutes 2x15 Comments BUE support STS Equipment Used 2x5 Comments with BUE support; added to HEP PT-OP-T Assessment and Plan Start: 04/10/23 12:59 Freq: Status: Active Protocol: Document 04/16/23 11:58 AB (Rec: 04/16/23 14:13 AB [id number]) Physical Therapy Assessment Goals Six Impairment Strength Short Term Goal (STG) Pt's gross LE MMT scores to improve to 4/5 or better to show improving muscular strength to improve ability to perform functional mobility and to decrease symptoms. STG Duration 4 Snf Goal (LTG) Pt's gross LE MMT scores to improve to 4+/5 or better to show improving muscular strength to improve ability to perform functional mobility and to decrease symptoms. LTG Duration 6 Five Impairment AROM deficits Short Term Goal (STG) Pt's bilateral hip external rotation AROM to improve to 30 degrees or better to show show improving mobility to improve ability to perform ADLs and IADLs, and to improve gait mechanics. STG Duration 4 Tub Rider Goal (LTG) Pt's bilateral hip external rotation AROM to improve to 35 degrees or better to show show improving mobility to improve ability to perform ADLs and IADLs, and to improve gait mechanics. LTG Duration 6 Four Impairment AROM deficits Short Term Goal (STG) Pt's bilateral hip internal rotation AROM to improve to 40 degrees or better to show show improving mobility to improve ability to perform ADLs and IADLs and to improve gait mechanics. STG Duration 4 Snf Goal (LTG) Pt's bilateral hip internal rotation AROM to improve to 45 degrees or better to show show improving mobility to improve ability to perform ADLs and IADLs and to improve gait mechanics. LTG Duration 6 Three Impairment AROM deficits Short Term Goal (STG) Pt's lumbar spine bilateral rotation AROM to improve to 35 degrees with minimal to no pain to show improving mobility to improve ability to perform ADLs and IADLs. STG Duration 4 Snf Goal (LTG) Pt's lumbar spine bilateral rotation AROM to improve to 40 degrees with minimal to no pain to show improving mobility to improve ability to perform ADLs and IADLs. LTG Duration 6 Two Impairment AROM deficits Short Term Goal (STG) Pt's lumbar spine bilateral lateral flexion (side bending) AROM to improve to superior patella with minimal to no pain to show improving mobility to improve ability to perform ADLs and IADLs. STG Duration 4 Snf Goal (LTG) Pt's lumbar spine bilateral lateral flexion (side bending) AROM to improve to mid joint line with minimal to no pain to show improving mobility to improve ability to perform ADLs and IADLs. LTG Duration 6 One Impairment AROM deficits Short Term Goal (STG) Pt's lumbar spine flexion AROM to improve to distal shins with minimal to no pain to show improving mobility to improve ability to perform ADLs and IADLs. STG Duration 4 Snf Goal (LTG) Pt's lumbar spine flexion AROM to improve to ankles with minimal to no pain to show improving mobility to improve ability to perform ADLs and IADLs. LTG Duration 6 Assessment Summary Assessment Due to reports of increase right LE pain/discomfort, exercises today were mostly limited to sitting. He was able to perform recumbent elliptical and seated exercises without discomfort. However, he had difficulty performing LAQs on RLE due to weakness. He had slight increase in pain/discomfort with STS and heel raises, but reports this was mild. The pt was educated on proper hand and foot placement when performing STS in order to increase efficiency and safety. The pt would benefit from continued skilled PT to improve his symptoms in order to improve his level of function and reduce his risk for falls. Physical Therapy Plan Frequency and Duration Frequency of Treatment 2x/Week Duration of treatment (weeks) 6 Plan of Care Start Date 04/10/23 Plan of Care End Date 05/22/23 Therapeutic Interventions Therapeutic Interventions Balance Training,Gait Training ,Home Exercise Program,Joint Mobilizations,Manual Therapy, Neuromuscular Re-education, Patient/Caregiver Education, Self-Care/Home Management,Soft Tissue Mobilization,Taping, Therapeutic Activities, Therapeutic Exercises Next Visit Focus/Plan Next Note Type Treatment Note Next Visit Plan Review HEP. Add core and LE strength and mobility exercises as tolerated.
--- NOTE | 2023-04-23 12:53 | PT.OTN ---
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 He states went to [place], but he states they did nothing for him. [Chart reiview actually shows he was d/c to [facility] for additional rehab.] The pt reports history of right low back/hip pain that goes down his leg, which began years ago . This pain inhibits his ability to stand or walk for prolonged periods, and he endorses N/T in RLE occassionally. He reports he got a shot in his back to help his symptoms but it didn't help, but then he tried a second which relieved symptoms 80-90% for about 6-8 weeks, however he then sufferred a stroke and wasn't able to continue with his treatment. He also reports hx of bilateral CHUCK. The pt presents with SPC, though he reports he doesn't use it much when he is on his own. He also states he has a FWW which he uses in he mornings to get going. Prior Treatments and Tests Cortisone injections? Treatment Goals Patient/Caregiver Goals To help improve his symptoms PT-OP-C Subjective Start: 04/10/23 12:59 Freq: Status: Active Protocol: Document 04/23/23 11:52 SW (Rec: 04/23/23 12:53 [id number]) OP-PT Subjective Patient Comments Patient Comments Pt reports he is going to get a shot for his right side, discomfort gets to be too much by evening time, has been a problem for a couple years now . Patient reports he is getting a little better from his fall last week, but not as fast as he would like. PT-OP-G Mobility & Gait Start: 04/10/23 12:59 Freq: Status: Active Protocol: Document 04/10/23 12:59 AB (Rec: 04/10/23 14:54 AB [id number]) OP Gait Assessment Gait Gait Assistance Required: Independent Assistive Devices Assistive Device None,Straight Cane Gait Deviations General Gait Pattern Decreased Stride Length, Decreased Feet Clearance, Flexed Trunk Factors Limiting Gait Function Factors Limiting Gait Function Decreased Activity Tolerance, Decreased Strength,Limited Range of Motion,Pain Comments Gait Comments The pt lakcs heel-toe pattern, though it is not shuffling. Decreased hip flexion and extension limit his step length PT-OP-K Range of Motion Start: 04/10/23 12:59 Freq: Status: Active Protocol: Document 04/10/23 12:59 AB (Rec: 04/10/23 14:54 AB [id number]) Lumbar Spine Range of Motion Lumbar Spine Active Degrees Testing Position Standing Extension 10 Rotation Left 30 Rotation Right 30 Comments flexion: mid shins SB: distal thigh bilaterally Reproduction of symptoms with flexion, bilateral SB and rotation to R; all on right low back Hip Goniometric Range of Motion Hip Right Active Flexion w/Knee Flexed 100 Internal Rotation 35 External Rotation 20 Left Active Flexion w/Knee Flexed 100 Internal Rotation 35 External Rotation 25 PT-OP-M Strength Start: 04/10/23 12:59 Freq: Status: Active Protocol: Document 04/10/23 12:59 AB (Rec: 04/10/23 14:54 AB [id number]) Hip Strength Hip Manual Muscle Testing Right Flexion (L2) 4 Good Extension (S1) 3+ Fair+ Abduction 4- Good- Adduction 4 Good External Rotation 4- Good- Internal Rotation 4- Good- Left Flexion (L2) 4+ Good+ Extension (S1) 3+ Fair+ Abduction 4- Good- Adduction 4 Good External Rotation 4 Good Internal Rotation 4 Good Knee Strength Knee Manual Muscle Testing Right Flexion (S2) 4 Good Extension (L3) 4+ Good+ Left Flexion (S2) 4+ Good+ Extension (L3) 5 Normal PT-OP-Q Treatments Start: 04/10/23 12:59 Freq: Status: Active Protocol: Document 04/23/23 11:52 (Rec: 04/23/23 12:53 [id number]) Cardio Equipment Recumbent Stepper (Sci-Fit) Duration (Minutes) 7 Resistance 1.5 Seat Position 13 Therapeutic Exercises Supine Exercises LTR Supine Exercise Name LTR feet together/ hip width Side bilateral Comments for hip and lumbar ROM Sitting Exercises Resisted Flex Sitting Exercise Name Core strengthening Equipment Used Filipino ball LAQs Side bilateral Reps/Minutes 2x10 ea Comments added to HEP Hip ABD Sitting Exercise Name Seated clamshells Side bilateral Resistance level 2 teal TB Reps/Minutes 2x15 Comments added to HEP Hip ADD Sitting Exercise Name Hip ADD ball squeeze Side bilateral Equipment Used small blue ball Reps/Minutes 2x15, 3 sec hold Comments added to HEP Marching Side bilateral Reps/Minutes 2x10 ea Comments vc for compensation Standing Exercises AROM Standing Exercise Name Lumbar flex, lateral ( sidebending) Side bilateral Equipment Used Filipino ball @ mat table Reps/Minutes x 10 3 hold Comments verbal/tactile cueing for compensations Heel raises Side bilateral Reps/Minutes 2x15 Comments BUE support STS Equipment Used 2x5 Comments with BUE support; added to HEP Manual Therapy Treatment Manual Techniques Hip Stretch Type IR/ER Body Location Bilateral Hip Body Position Supine Reps/Duration 3 x 20 hold PT-OP-T Assessment and Plan Start: 04/10/23 12:59 Freq: Status: Active Protocol: Document 04/23/23 11:52 (Rec: 04/23/23 12:53 [id number]) Physical Therapy Assessment Goals Six Impairment Strength Short Term Goal (STG) Pt's gross LE MMT scores to improve to 4/5 or better to show improving muscular strength to improve ability to perform functional mobility and to decrease symptoms. STG Duration 4 Tray Filler Goal (LTG) Pt's gross LE MMT scores to improve to 4+/5 or better to show improving muscular strength to improve ability to perform functional mobility and to decrease symptoms. LTG Duration 6 Five Impairment AROM deficits Short Term Goal (STG) Pt's bilateral hip external rotation AROM to improve to 30 degrees or better to show show improving mobility to improve ability to perform ADLs and IADLs, and to improve gait mechanics. STG Duration 4 Jail Goal (LTG) Pt's bilateral hip external rotation AROM to improve to 35 degrees or better to show show improving mobility to improve ability to perform ADLs and IADLs, and to improve gait mechanics. LTG Duration 6 Four Impairment AROM deficits Short Term Goal (STG) Pt's bilateral hip internal rotation AROM to improve to 40 degrees or better to show show improving mobility to improve ability to perform ADLs and IADLs and to improve gait mechanics. STG Duration 4 Tray Filler Goal (LTG) Pt's bilateral hip internal rotation AROM to improve to 45 degrees or better to show show improving mobility to improve ability to perform ADLs and IADLs and to improve gait mechanics. LTG Duration 6 Three Impairment AROM deficits Short Term Goal (STG) Pt's lumbar spine bilateral rotation AROM to improve to 35 degrees with minimal to no pain to show improving mobility to improve ability to perform ADLs and IADLs. STG Duration 4 Jail Goal (LTG) Pt's lumbar spine bilateral rotation AROM to improve to 40 degrees with minimal to no pain to show improving mobility to improve ability to perform ADLs and IADLs. LTG Duration 6 Two Impairment AROM deficits Short Term Goal (STG) Pt's lumbar spine bilateral lateral flexion (side bending) AROM to improve to superior patella with minimal to no pain to show improving mobility to improve ability to perform ADLs and IADLs. STG Duration 4 Tray Filler Goal (LTG) Pt's lumbar spine bilateral lateral flexion (side bending) AROM to improve to mid joint line with minimal to no pain to show improving mobility to improve ability to perform ADLs and IADLs. LTG Duration 6 One Impairment AROM deficits Short Term Goal (STG) Pt's lumbar spine flexion AROM to improve to distal shins with minimal to no pain to show improving mobility to improve ability to perform ADLs and IADLs. STG Duration 4 Tray Filler Goal (LTG) Pt's lumbar spine flexion AROM to improve to ankles with minimal to no pain to show improving mobility to improve ability to perform ADLs and IADLs. LTG Duration 6 Assessment Summary Assessment Reviewed HEP exercises, require verbal/tactile cues for compensations, pt able to correct with limited carryover . Recumbant elliptical occupied, trialed stepper for LE strength, tolerated well w/ no increase in symptoms. Started seated core strength ex and mobility exercises, tactile cueing required for lateral ROM to decrease compensations. Physical Therapy Plan Frequency and Duration Frequency of Treatment 2x/Week Duration of treatment (weeks) 6 Plan of Care Start Date 04/10/23 Plan of Care End Date 05/22/23 Therapeutic Interventions Therapeutic Interventions Balance Training,Gait Training ,Home Exercise Program,Joint Mobilizations,Manual Therapy, Neuromuscular Re-education, Patient/Caregiver Education, Self-Care/Home Management,Soft Tissue Mobilization,Taping, Therapeutic Activities, Therapeutic Exercises Next Visit Focus/Plan Next Note Type Treatment Note Next Visit Plan Review HEP. Add core and LE strength and mobility exercises as tolerated.
--- NOTE | 2023-04-28 17:05 | PT.OTN ---
Current Diagnoses Cerebral infarction, unspecified (04/28/23) Physical Therapy Treatment Note PT-OP-A Visit Information Start: 04/10/23 12:59 Freq: Status: Active Protocol: Document 04/28/23 16:15 AB (Rec: 04/30/23 12:01 AB [id number]) Out-Patient Physical Therapy Visit Information Visit Information Visit Type Treatment Note Visit Start Time 16:15 Visit Stop Time 17:00 Total Visit Minutes 45 Visit Number 4 PT-OP-B Current Condition Start: 04/10/23 12:59 Freq: Status: Active Protocol: Document 04/10/23 12:59 AB (Rec: 04/10/23 14:54 AB [id number]) Current Condition History of Current Condition Onset Date Chronic Current Complaints right low back/hip pain 8/10 at worst, 0-1/10 History of Current Condition The pt reports he sufferred a stroke on 02/27/23, which caused some right sided weakness, though he states these have resolved mostly, 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 He states went to [place], but he states they did nothing for him. [Chart reiview actually shows he was d/c to [facility] for additional rehab.] The pt reports history of right low back/hip pain that goes down his leg, which began years ago . This pain inhibits his ability to stand or walk for prolonged periods, and he endorses N/T in RLE occassionally. He reports he got a shot in his back to help his symptoms but it didn't help, but then he tried a second which relieved symptoms 80-90% for about 6-8 weeks, however he then sufferred a stroke and wasn't able to continue with his treatment. He also reports hx of bilateral CHUCK. The pt presents with SPC, though he reports he doesn't use it much when he is on his own. He also states he has a FWW which he uses in he mornings to get going. Prior Treatments and Tests Cortisone injections? Treatment Goals Patient/Caregiver Goals To help improve his symptoms PT-OP-C Subjective Start: 04/10/23 12:59 Freq: Status: Active Protocol: Document 04/28/23 16:15 AB (Rec: 04/30/23 12:01 AB [id number]) OP-PT Subjective Patient Comments Patient Comments The pt reports no significant changes since his last visit. PT-OP-G Mobility & Gait Start: 04/10/23 12:59 Freq: Status: Active Protocol: Document 04/10/23 12:59 AB (Rec: 04/10/23 14:54 AB [id number]) OP Gait Assessment Gait Gait Assistance Required: Independent Assistive Devices Assistive Device None,Straight Cane Gait Deviations General Gait Pattern Decreased Stride Length, Decreased Feet Clearance, Flexed Trunk Factors Limiting Gait Function Factors Limiting Gait Function Decreased Activity Tolerance, Decreased Strength,Limited Range of Motion,Pain Comments Gait Comments The pt lakcs heel-toe pattern, though it is not shuffling. Decreased hip flexion and extension limit his step length PT-OP-K Range of Motion Start: 04/10/23 12:59 Freq: Status: Active Protocol: Document 04/10/23 12:59 AB (Rec: 04/10/23 14:54 AB [id number]) Lumbar Spine Range of Motion Lumbar Spine Active Degrees Testing Position Standing Extension 10 Rotation Left 30 Rotation Right 30 Comments flexion: mid shins SB: distal thigh bilaterally Reproduction of symptoms with flexion, bilateral SB and rotation to R; all on right low back Hip Goniometric Range of Motion Hip Right Active Flexion w/Knee Flexed 100 Internal Rotation 35 External Rotation 20 Left Active Flexion w/Knee Flexed 100 Internal Rotation 35 External Rotation 25 PT-OP-M Strength Start: 04/10/23 12:59 Freq: Status: Active Protocol: Document 04/10/23 12:59 AB (Rec: 04/10/23 14:54 AB [id number]) Hip Strength Hip Manual Muscle Testing Right Flexion (L2) 4 Good Extension (S1) 3+ Fair+ Abduction 4- Good- Adduction 4 Good External Rotation 4- Good- Internal Rotation 4- Good- Left Flexion (L2) 4+ Good+ Extension (S1) 3+ Fair+ Abduction 4- Good- Adduction 4 Good External Rotation 4 Good Internal Rotation 4 Good Knee Strength Knee Manual Muscle Testing Right Flexion (S2) 4 Good Extension (L3) 4+ Good+ Left Flexion (S2) 4+ Good+ Extension (L3) 5 Normal PT-OP-Q Treatments Start: 04/10/23 12:59 Freq: Status: Active Protocol: Document 04/28/23 16:15 AB (Rec: 04/30/23 12:01 AB [id number]) Cardio Equipment Recumbent Elliptical ([employer]) Duration (Minutes) 5 Therapeutic Exercises Supine Exercises Bridge Reps/Minutes 2x10 LTR Supine Exercise Name LTR feet together/ hip width Side bilateral Reps/Minutes 2 min Comments for hip and lumbar ROM Sitting Exercises 3 way lumbar flex stretch Equipment Used [place] ball Reps/Minutes 3min Standing Exercises Marching Side bilateral Reps/Minutes 2x10 AROM Standing Exercise Name Lumbar flex, lateral ( sidebending) Side bilateral Equipment Used Haitian ball @ mat table Reps/Minutes x 10 3 hold Comments verbal/tactile cueing for compensations Heel raises Side bilateral Reps/Minutes 2x15 Comments BUE support STS Equipment Used 2x5 Comments no UE support PT-OP-T Assessment and Plan Start: 04/10/23 12:59 Freq: Status: Active Protocol: Document 04/28/23 16:15 AB (Rec: 04/30/23 12:01 AB [id number]) Physical Therapy Assessment Goals Six Impairment Strength Short Term Goal (STG) Pt's gross LE MMT scores to improve to 4/5 or better to show improving muscular strength to improve ability to perform functional mobility and to decrease symptoms. STG Duration 4 Underground Bolting Machine Operator Goal (LTG) Pt's gross LE MMT scores to improve to 4+/5 or better to show improving muscular strength to improve ability to perform functional mobility and to decrease symptoms. LTG Duration 6 Five Impairment AROM deficits Short Term Goal (STG) Pt's bilateral hip external rotation AROM to improve to 30 degrees or better to show show improving mobility to improve ability to perform ADLs and IADLs, and to improve gait mechanics. STG Duration 4 Underground Bolting Machine Operator Goal (LTG) Pt's bilateral hip external rotation AROM to improve to 35 degrees or better to show show improving mobility to improve ability to perform ADLs and IADLs, and to improve gait mechanics. LTG Duration 6 Four Impairment AROM deficits Short Term Goal (STG) Pt's bilateral hip internal rotation AROM to improve to 40 degrees or better to show show improving mobility to improve ability to perform ADLs and IADLs and to improve gait mechanics. STG Duration 4 Underground Bolting Machine Operator Goal (LTG) Pt's bilateral hip internal rotation AROM to improve to 45 degrees or better to show show improving mobility to improve ability to perform ADLs and IADLs and to improve gait mechanics. LTG Duration 6 Three Impairment AROM deficits Short Term Goal (STG) Pt's lumbar spine bilateral rotation AROM to improve to 35 degrees with minimal to no pain to show improving mobility to improve ability to perform ADLs and IADLs. STG Duration 4 Fdc Goal (LTG) Pt's lumbar spine bilateral rotation AROM to improve to 40 degrees with minimal to no pain to show improving mobility to improve ability to perform ADLs and IADLs. LTG Duration 6 Two Impairment AROM deficits Short Term Goal (STG) Pt's lumbar spine bilateral lateral flexion (side bending) AROM to improve to superior patella with minimal to no pain to show improving mobility to improve ability to perform ADLs and IADLs. STG Duration 4 Underground Bolting Machine Operator Goal (LTG) Pt's lumbar spine bilateral lateral flexion (side bending) AROM to improve to mid joint line with minimal to no pain to show improving mobility to improve ability to perform ADLs and IADLs. LTG Duration 6 One Impairment AROM deficits Short Term Goal (STG) Pt's lumbar spine flexion AROM to improve to distal shins with minimal to no pain to show improving mobility to improve ability to perform ADLs and IADLs. STG Duration 4 Fdc Goal (LTG) Pt's lumbar spine flexion AROM to improve to ankles with minimal to no pain to show improving mobility to improve ability to perform ADLs and IADLs. LTG Duration 6 Assessment Summary Assessment The pt was progressed by adding LE strengthening exercises that also challenge his balance. The pt requires verbal cues to avoid trunk lean to improve posture, as he demonstrates forward flexed posture when standing. The pt continues to benefit from progression of core and LE strengthening exercises to improve his symptoms and level of function. Physical Therapy Plan Frequency and Duration Frequency of Treatment 2x/Week Duration of treatment (weeks) 6 Plan of Care Start Date 04/10/23 Plan of Care End Date 05/22/23 Therapeutic Interventions Therapeutic Interventions Balance Training,Gait Training ,Home Exercise Program,Joint Mobilizations,Manual Therapy, Neuromuscular Re-education, Patient/Caregiver Education, Self-Care/Home Management,Soft Tissue Mobilization,Taping, Therapeutic Activities, Therapeutic Exercises Next Visit Focus/Plan Next Note Type Treatment Note Next Visit Plan Add core and LE strength and mobility exercises as tolerated. Consider adding hip traction as indicated to reduce hip pain.
--- NOTE | 2023-04-30 16:56 | PT.OTN ---
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 He states went to [facility], but he states they did nothing for him. [Chart reiview actually shows he was d/c to [facility] for additional rehab.] The pt reports history of right low back/hip pain that goes down his leg, which began years ago . This pain inhibits his ability to stand or walk for prolonged periods, and he endorses N/T in RLE occassionally. He reports he got a shot in his back to help his symptoms but it didn't help, but then he tried a second which relieved symptoms 80-90% for about 6-8 weeks, however he then sufferred a stroke and wasn't able to continue with his treatment. He also reports hx of bilateral CHUCK. The pt presents with SPC, though he reports he doesn't use it much when he is on his own. He also states he has a FWW which he uses in he mornings to get going. Prior Treatments and Tests Cortisone injections? Treatment Goals Patient/Caregiver Goals To help improve his symptoms PT-OP-C Subjective Start: 04/10/23 12:59 Freq: Status: Active Protocol: Document 04/30/23 13:45 SW (Rec: 04/30/23 14:45 SW [id number]) OP-PT Subjective Patient Comments Patient Comments Pt reports he is getting worse and worse, every week, the last week has been the worst. Sitting still ok, standing is the worst. Friday he has an apt with dr araujo to discuss a shot. PT-OP-G Mobility & Gait Start: 04/10/23 12:59 Freq: Status: Active Protocol: Document 04/10/23 12:59 AB (Rec: 04/10/23 14:54 AB [id number]) OP Gait Assessment Gait Gait Assistance Required: Independent Assistive Devices Assistive Device None,Straight Cane Gait Deviations General Gait Pattern Decreased Stride Length, Decreased Feet Clearance, Flexed Trunk Factors Limiting Gait Function Factors Limiting Gait Function Decreased Activity Tolerance, Decreased Strength,Limited Range of Motion,Pain Comments Gait Comments The pt lakcs heel-toe pattern, though it is not shuffling. Decreased hip flexion and extension limit his step length PT-OP-K Range of Motion Start: 04/10/23 12:59 Freq: Status: Active Protocol: Document 04/10/23 12:59 AB (Rec: 04/10/23 14:54 AB [id number]) Lumbar Spine Range of Motion Lumbar Spine Active Degrees Testing Position Standing Extension 10 Rotation Left 30 Rotation Right 30 Comments flexion: mid shins SB: distal thigh bilaterally Reproduction of symptoms with flexion, bilateral SB and rotation to R; all on right low back Hip Goniometric Range of Motion Hip Right Active Flexion w/Knee Flexed 100 Internal Rotation 35 External Rotation 20 Left Active Flexion w/Knee Flexed 100 Internal Rotation 35 External Rotation 25 PT-OP-M Strength Start: 04/10/23 12:59 Freq: Status: Active Protocol: Document 04/10/23 12:59 AB (Rec: 04/10/23 14:54 AB [id number]) Hip Strength Hip Manual Muscle Testing Right Flexion (L2) 4 Good Extension (S1) 3+ Fair+ Abduction 4- Good- Adduction 4 Good External Rotation 4- Good- Internal Rotation 4- Good- Left Flexion (L2) 4+ Good+ Extension (S1) 3+ Fair+ Abduction 4- Good- Adduction 4 Good External Rotation 4 Good Internal Rotation 4 Good Knee Strength Knee Manual Muscle Testing Right Flexion (S2) 4 Good Extension (L3) 4+ Good+ Left Flexion (S2) 4+ Good+ Extension (L3) 5 Normal PT-OP-Q Treatments Start: 04/10/23 12:59 Freq: Status: Active Protocol: Document 04/30/23 13:45 SW (Rec: 04/30/23 14:45 SW [id number]) Cardio Equipment Recumbent Elliptical (Biodex) Duration (Minutes) 5 Therapeutic Exercises Supine Exercises Bridge Reps/Minutes 2x10 LTR Supine Exercise Name LTR feet together/ hip width Side bilateral Reps/Minutes 2 min Comments for hip and lumbar ROM Sitting Exercises LAQs Side bilateral Reps/Minutes 2x10 ea Comments added to HEP Hip ABD Sitting Exercise Name Seated clamshells Side bilateral Resistance Green TB Reps/Minutes 2x15 Comments added to HEP Hip ADD Sitting Exercise Name Hip ADD ball squeeze Side bilateral Equipment Used small blue ball Reps/Minutes 2x15, 3 sec hold Comments added to HEP Marching Side bilateral Resistance Green TB Reps/Minutes 2x10 ea Comments vc for compensation Standing Exercises Heel raises Side bilateral Reps/Minutes 2x15 Comments BUE support Manual Therapy Treatment Manual Traction LAD Details RLE Body Position Hooklying Reps/Duration 2 x 30 Self-Care/Home Management Treatment Education Patient Education Home Exercise Program,Joint Protection,Pain Management Other Education Pt education on importance of consistant carryover of therex at home to make gains in mm strength. Educated patient on sleeping positioning with use of pillows to help with alignment and pain. PT-OP-T Assessment and Plan Start: 04/10/23 12:59 Freq: Status: Active Protocol: Document 04/30/23 13:45 SW (Rec: 04/30/23 14:45 [id number]) Physical Therapy Assessment Goals Six Impairment Strength Short Term Goal (STG) Pt's gross LE MMT scores to improve to 4/5 or better to show improving muscular strength to improve ability to perform functional mobility and to decrease symptoms. STG Duration 4 Limited Radiology Technician Goal (LTG) Pt's gross LE MMT scores to improve to 4+/5 or better to show improving muscular strength to improve ability to perform functional mobility and to decrease symptoms. LTG Duration 6 Five Impairment AROM deficits Short Term Goal (STG) Pt's bilateral hip external rotation AROM to improve to 30 degrees or better to show show improving mobility to improve ability to perform ADLs and IADLs, and to improve gait mechanics. STG Duration 4 Limited Radiology Technician Goal (LTG) Pt's bilateral hip external rotation AROM to improve to 35 degrees or better to show show improving mobility to improve ability to perform ADLs and IADLs, and to improve gait mechanics. LTG Duration 6 Four Impairment AROM deficits Short Term Goal (STG) Pt's bilateral hip internal rotation AROM to improve to 40 degrees or better to show show improving mobility to improve ability to perform ADLs and IADLs and to improve gait mechanics. STG Duration 4 Limited Radiology Technician Goal (LTG) Pt's bilateral hip internal rotation AROM to improve to 45 degrees or better to show show improving mobility to improve ability to perform ADLs and IADLs and to improve gait mechanics. LTG Duration 6 Three Impairment AROM deficits Short Term Goal (STG) Pt's lumbar spine bilateral rotation AROM to improve to 35 degrees with minimal to no pain to show improving mobility to improve ability to perform ADLs and IADLs. STG Duration 4 Fci Goal (LTG) Pt's lumbar spine bilateral rotation AROM to improve to 40 degrees with minimal to no pain to show improving mobility to improve ability to perform ADLs and IADLs. LTG Duration 6 Two Impairment AROM deficits Short Term Goal (STG) Pt's lumbar spine bilateral lateral flexion (side bending) AROM to improve to superior patella with minimal to no pain to show improving mobility to improve ability to perform ADLs and IADLs. STG Duration 4 Limited Radiology Technician Goal (LTG) Pt's lumbar spine bilateral lateral flexion (side bending) AROM to improve to mid joint line with minimal to no pain to show improving mobility to improve ability to perform ADLs and IADLs. LTG Duration 6 One Impairment AROM deficits Short Term Goal (STG) Pt's lumbar spine flexion AROM to improve to distal shins with minimal to no pain to show improving mobility to improve ability to perform ADLs and IADLs. STG Duration 4 Fci Goal (LTG) Pt's lumbar spine flexion AROM to improve to ankles with minimal to no pain to show improving mobility to improve ability to perform ADLs and IADLs. LTG Duration 6 Assessment Summary Assessment Patient reports that he has been feeling worse over the last week. States that standing is not good, he is ok in sitting/supine. Discussed patient sleep positioning at night, to keep his RLE in anatomical alignment. Reviewed exercises in seated/supine position this session to not aggravate his symptoms further , plan to follow up next session on tolerance. Discussed and encouraged patient carryover of HEP. Physical Therapy Plan Frequency and Duration Frequency of Treatment 2x/Week Duration of treatment (weeks) 6 Plan of Care Start Date 04/10/23 Plan of Care End Date 05/22/23 Therapeutic Interventions Therapeutic Interventions Balance Training,Gait Training ,Home Exercise Program,Joint Mobilizations,Manual Therapy, Neuromuscular Re-education, Patient/Caregiver Education, Self-Care/Home Management,Soft Tissue Mobilization,Taping, Therapeutic Activities, Therapeutic Exercises Next Visit Focus/Plan Next Note Type Treatment Note Next Visit Plan Add core and LE strength and mobility exercises as tolerated. Consider adding hip traction as indicated to reduce hip pain.
--- NOTE | 2023-05-05 14:41 | PT.OTN ---
Current Diagnoses Cerebral infarction, unspecified (05/05/23) Physical Therapy Treatment Note PT-OP-A Visit Information Start: 04/10/23 12:59 Freq: Status: Active Protocol: Document 05/05/23 13:05 AB (Rec: 05/05/23 14:40 AB [id number]) Out-Patient Physical Therapy Visit Information Visit Information Visit Type Treatment Note Visit Start Time 13:05 Visit Stop Time 13:45 Total Visit Minutes 40 Visit Number 6 PT-OP-B Current Condition Start: 04/10/23 12:59 Freq: Status: Active Protocol: Document 04/10/23 12:59 AB (Rec: 04/10/23 14:54 AB [id number]) Current Condition History of Current Condition Onset Date Chronic Current Complaints right low back/hip pain 8/10 at worst, 0-1/10 History of Current Condition The pt reports he sufferred a stroke on 02/27/23, which caused some right sided weakness, though he states these have resolved mostly, 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 He states went to [facility], but he states they did nothing for him. [Chart reiview actually shows he was d/c to [facility] for additional rehab.] The pt reports history of right low back/hip pain that goes down his leg, which began years ago . This pain inhibits his ability to stand or walk for prolonged periods, and he endorses N/T in RLE occassionally. He reports he got a shot in his back to help his symptoms but it didn't help, but then he tried a second which relieved symptoms 80-90% for about 6-8 weeks, however he then sufferred a stroke and wasn't able to continue with his treatment. He also reports hx of bilateral CHUCK. The pt presents with SPC, though he reports he doesn't use it much when he is on his own. He also states he has a FWW which he uses in he mornings to get going. Prior Treatments and Tests Cortisone injections? Treatment Goals Patient/Caregiver Goals To help improve his symptoms PT-OP-C Subjective Start: 04/10/23 12:59 Freq: Status: Active Protocol: Document 05/05/23 13:05 AB (Rec: 05/05/23 14:40 AB [id number]) OP-PT Subjective Patient Comments Patient Comments THe pt reports no significant change in his symptoms since beginning PT. He reports his pain is minimal when he's sitting, but increases to 8-9/ 10 when standing. He and his report he will be seeing his MD about an injection after today's session. PT-OP-G Mobility & Gait Start: 04/10/23 12:59 Freq: Status: Active Protocol: Document 04/10/23 12:59 AB (Rec: 04/10/23 14:54 AB [id number]) OP Gait Assessment Gait Gait Assistance Required: Independent Assistive Devices Assistive Device None,Straight Cane Gait Deviations General Gait Pattern Decreased Stride Length, Decreased Feet Clearance, Flexed Trunk Factors Limiting Gait Function Factors Limiting Gait Function Decreased Activity Tolerance, Decreased Strength,Limited Range of Motion,Pain Comments Gait Comments The pt lakcs heel-toe pattern, though it is not shuffling. Decreased hip flexion and extension limit his step length PT-OP-K Range of Motion Start: 04/10/23 12:59 Freq: Status: Active Protocol: Document 04/10/23 12:59 AB (Rec: 04/10/23 14:54 AB [id number]) Lumbar Spine Range of Motion Lumbar Spine Active Degrees Testing Position Standing Extension 10 Rotation Left 30 Rotation Right 30 Comments flexion: mid shins SB: distal thigh bilaterally Reproduction of symptoms with flexion, bilateral SB and rotation to R; all on right low back Hip Goniometric Range of Motion Hip Right Active Flexion w/Knee Flexed 100 Internal Rotation 35 External Rotation 20 Left Active Flexion w/Knee Flexed 100 Internal Rotation 35 External Rotation 25 PT-OP-M Strength Start: 04/10/23 12:59 Freq: Status: Active Protocol: Document 04/10/23 12:59 AB (Rec: 04/10/23 14:54 AB [id number]) Hip Strength Hip Manual Muscle Testing Right Flexion (L2) 4 Good Extension (S1) 3+ Fair+ Abduction 4- Good- Adduction 4 Good External Rotation 4- Good- Internal Rotation 4- Good- Left Flexion (L2) 4+ Good+ Extension (S1) 3+ Fair+ Abduction 4- Good- Adduction 4 Good External Rotation 4 Good Internal Rotation 4 Good Knee Strength Knee Manual Muscle Testing Right Flexion (S2) 4 Good Extension (L3) 4+ Good+ Left Flexion (S2) 4+ Good+ Extension (L3) 5 Normal PT-OP-Q Treatments Start: 04/10/23 12:59 Freq: Status: Active Protocol: Document 05/05/23 13:05 AB (Rec: 05/05/23 14:40 AB [id number]) Cardio Equipment Recumbent Stepper (Sci-Fit) Duration (Minutes) 6 Therapeutic Exercises Supine Exercises Bridge Reps/Minutes 2x10 LTR Supine Exercise Name LTR feet together/ hip width Side bilateral Reps/Minutes 2 min Comments for hip and lumbar ROM Sitting Exercises Hip ABD Sitting Exercise Name Seated clamshells Side bilateral Resistance Green TB Reps/Minutes 2x15 Hip ADD Sitting Exercise Name Hip ADD ball squeeze Side bilateral Equipment Used small blue ball Reps/Minutes 2x15, 3 sec hold Standing Exercises Marching Side bilateral Reps/Minutes 2x10 Heel raises Side bilateral Reps/Minutes 2x15 Comments BUE support STS Equipment Used 2x5 Comments no UE support Self-Care/Home Management Treatment Education Patient Education Home Exercise Program,Pain Management Other Education The pt was educated on continuing to perform HEP, including seated exercises to improve strength and overall load tolerance of soft tissues . The pt was also educated on use of modalities to improve his symptoms. PT-OP-T Assessment and Plan Start: 04/10/23 12:59 Freq: Status: Active Protocol: Document 05/05/23 13:05 AB (Rec: 05/05/23 14:40 AB [id number]) Physical Therapy Assessment Goals Six Impairment Strength Short Term Goal (STG) Pt's gross LE MMT scores to improve to 4/5 or better to show improving muscular strength to improve ability to perform functional mobility and to decrease symptoms. STG Duration 4 Longterm Goal (LTG) Pt's gross LE MMT scores to improve to 4+/5 or better to show improving muscular strength to improve ability to perform functional mobility and to decrease symptoms. LTG Duration 6 Five Impairment AROM deficits Short Term Goal (STG) Pt's bilateral hip external rotation AROM to improve to 30 degrees or better to show show improving mobility to improve ability to perform ADLs and IADLs, and to improve gait mechanics. STG Duration 4 Longterm Goal (LTG) Pt's bilateral hip external rotation AROM to improve to 35 degrees or better to show show improving mobility to improve ability to perform ADLs and IADLs, and to improve gait mechanics. LTG Duration 6 Four Impairment AROM deficits Short Term Goal (STG) Pt's bilateral hip internal rotation AROM to improve to 40 degrees or better to show show improving mobility to improve ability to perform ADLs and IADLs and to improve gait mechanics. STG Duration 4 Gum Machine Filler Goal (LTG) Pt's bilateral hip internal rotation AROM to improve to 45 degrees or better to show show improving mobility to improve ability to perform ADLs and IADLs and to improve gait mechanics. LTG Duration 6 Three Impairment AROM deficits Short Term Goal (STG) Pt's lumbar spine bilateral rotation AROM to improve to 35 degrees with minimal to no pain to show improving mobility to improve ability to perform ADLs and IADLs. STG Duration 4 Gum Machine Filler Goal (LTG) Pt's lumbar spine bilateral rotation AROM to improve to 40 degrees with minimal to no pain to show improving mobility to improve ability to perform ADLs and IADLs. LTG Duration 6 Two Impairment AROM deficits Short Term Goal (STG) Pt's lumbar spine bilateral lateral flexion (side bending) AROM to improve to superior patella with minimal to no pain to show improving mobility to improve ability to perform ADLs and IADLs. STG Duration 4 Gum Machine Filler Goal (LTG) Pt's lumbar spine bilateral lateral flexion (side bending) AROM to improve to mid joint line with minimal to no pain to show improving mobility to improve ability to perform ADLs and IADLs. LTG Duration 6 One Impairment AROM deficits Short Term Goal (STG) Pt's lumbar spine flexion AROM to improve to distal shins with minimal to no pain to show improving mobility to improve ability to perform ADLs and IADLs. STG Duration 4 Longterm Goal (LTG) Pt's lumbar spine flexion AROM to improve to ankles with minimal to no pain to show improving mobility to improve ability to perform ADLs and IADLs. LTG Duration 6 Assessment Summary Assessment The pt was extensively educated on self care topics listed above, as the pt expresses increasing frustration with his symptoms and perceived lack of improvement. The pt reported pain symptoms of no greater than 4/10 with standing exercises performed today. He continues to benefit from skilled PT to improve his symptoms and impairments. Physical Therapy Plan Frequency and Duration Frequency of Treatment 2x/Week Duration of treatment (weeks) 6 Plan of Care Start Date 04/10/23 Plan of Care End Date 05/22/23 Therapeutic Interventions Therapeutic Interventions Balance Training,Gait Training ,Home Exercise Program,Joint Mobilizations,Manual Therapy, Neuromuscular Re-education, Patient/Caregiver Education, Self-Care/Home Management,Soft Tissue Mobilization,Taping, Therapeutic Activities, Therapeutic Exercises Next Visit Focus/Plan Next Note Type Treatment Note Next Visit Plan Add core and LE strength and mobility exercises as tolerated.
--- NOTE | 2023-05-07 13:17 | PT.OTN ---
Current Diagnoses Cerebral infarction, unspecified (05/07/23) Physical Therapy Treatment Note PT-OP-A Visit Information Start: 04/10/23 12:59 Freq: Status: Active Protocol: Document 05/07/23 11:05 AB (Rec: 05/07/23 13:10 AB [id number]) Out-Patient Physical Therapy Visit Information Visit Information Visit Type Treatment Note Visit Start Time 11:00 Visit Stop Time 11:45 Total Visit Minutes 45 Visit Number 7 PT-OP-B Current Condition Start: 04/10/23 12:59 Freq: Status: Active Protocol: Document 04/10/23 12:59 AB (Rec: 04/10/23 14:54 AB [id number]) Current Condition History of Current Condition Onset Date Chronic Current Complaints right low back/hip pain 8/10 at worst, 0-1/10 History of Current Condition The pt reports he sufferred a stroke on 02/27/23, which caused some right sided weakness, though he states these have resolved mostly, 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 He states went to [place], but he states they did nothing for him. [Chart reiview actually shows he was d/c to [facility] for additional rehab.] The pt reports history of right low back/hip pain that goes down his leg, which began years ago . This pain inhibits his ability to stand or walk for prolonged periods, and he endorses N/T in RLE occassionally. He reports he got a shot in his back to help his symptoms but it didn't help, but then he tried a second which relieved symptoms 80-90% for about 6-8 weeks, however he then sufferred a stroke and wasn't able to continue with his treatment. He also reports hx of bilateral CHUCK. The pt presents with SPC, though he reports he doesn't use it much when he is on his own. He also states he has a FWW which he uses in he mornings to get going. Prior Treatments and Tests Cortisone injections? Treatment Goals Patient/Caregiver Goals To help improve his symptoms PT-OP-C Subjective Start: 04/10/23 12:59 Freq: Status: Active Protocol: Document 05/07/23 13:10 AB (Rec: 05/07/23 13:17 AB [id number]) OP-PT Subjective Patient Comments Patient Comments The pt reports he feels like he continues to worsen. Today he presents with FWW because of the pain level when he walks. Patient Reported Progress Worse PT-OP-G Mobility & Gait Start: 04/10/23 12:59 Freq: Status: Active Protocol: Document 04/10/23 12:59 AB (Rec: 04/10/23 14:54 AB [id number]) OP Gait Assessment Gait Gait Assistance Required: Independent Assistive Devices Assistive Device None,Straight Cane Gait Deviations General Gait Pattern Decreased Stride Length, Decreased Feet Clearance, Flexed Trunk Factors Limiting Gait Function Factors Limiting Gait Function Decreased Activity Tolerance, Decreased Strength,Limited Range of Motion,Pain Comments Gait Comments The pt lakcs heel-toe pattern, though it is not shuffling. Decreased hip flexion and extension limit his step length PT-OP-K Range of Motion Start: 04/10/23 12:59 Freq: Status: Active Protocol: Document 04/10/23 12:59 AB (Rec: 04/10/23 14:54 AB [id number]) Lumbar Spine Range of Motion Lumbar Spine Active Degrees Testing Position Standing Extension 10 Rotation Left 30 Rotation Right 30 Comments flexion: mid shins SB: distal thigh bilaterally Reproduction of symptoms with flexion, bilateral SB and rotation to R; all on right low back Hip Goniometric Range of Motion Hip Right Active Flexion w/Knee Flexed 100 Internal Rotation 35 External Rotation 20 Left Active Flexion w/Knee Flexed 100 Internal Rotation 35 External Rotation 25 PT-OP-M Strength Start: 04/10/23 12:59 Freq: Status: Active Protocol: Document 04/10/23 12:59 AB (Rec: 04/10/23 14:54 AB [id number]) Hip Strength Hip Manual Muscle Testing Right Flexion (L2) 4 Good Extension (S1) 3+ Fair+ Abduction 4- Good- Adduction 4 Good External Rotation 4- Good- Internal Rotation 4- Good- Left Flexion (L2) 4+ Good+ Extension (S1) 3+ Fair+ Abduction 4- Good- Adduction 4 Good External Rotation 4 Good Internal Rotation 4 Good Knee Strength Knee Manual Muscle Testing Right Flexion (S2) 4 Good Extension (L3) 4+ Good+ Left Flexion (S2) 4+ Good+ Extension (L3) 5 Normal PT-OP-Q Treatments Start: 04/10/23 12:59 Freq: Status: Active Protocol: Document 05/07/23 11:05 AB (Rec: 05/07/23 13:10 AB [id number]) Therapeutic Exercises Supine Exercises Innominate rotation Supine Exercise Name Innominate rotation Side bilateral Equipment Used slim foam roller Reps/Minutes 1x5 ea, 3 sec hold Bridge Reps/Minutes 2x15 LTR Supine Exercise Name LTR feet together/ hip width Side bilateral Reps/Minutes 2 min Comments for hip and lumbar ROM Standing Exercises STS Equipment Used 2x5 Comments BUE support Gait Training Gait Activity Gait with FWW Description edu on using FWW correctly Device Used FWW Level of Assistance independent Surface even Distance/Duration 100ft Treatment Focus proper use of FWW Manual Therapy Treatment Joint Mobilizations Hip inferior mob Joint Hip Direction inferior Grade III Body Position Supine Reps/Duration 4 min ea Comments 1 set: with ER/IR PROM 2 set: with hip flexion PROM Hip - lateral mob Joint Hip Direction lateral Grade II Body Position Hooklying Reps/Duration 6 min PT-OP-T Assessment and Plan Start: 04/10/23 12:59 Freq: Status: Active Protocol: Document 05/07/23 11:05 AB (Rec: 05/07/23 13:10 AB [id number]) Physical Therapy Assessment Goals Six Impairment Strength Short Term Goal (STG) Pt's gross LE MMT scores to improve to 4/5 or better to show improving muscular strength to improve ability to perform functional mobility and to decrease symptoms. STG Duration 4 Halfway Goal (LTG) Pt's gross LE MMT scores to improve to 4+/5 or better to show improving muscular strength to improve ability to perform functional mobility and to decrease symptoms. LTG Duration 6 Five Impairment AROM deficits Short Term Goal (STG) Pt's bilateral hip external rotation AROM to improve to 30 degrees or better to show show improving mobility to improve ability to perform ADLs and IADLs, and to improve gait mechanics. STG Duration 4 Halfway Goal (LTG) Pt's bilateral hip external rotation AROM to improve to 35 degrees or better to show show improving mobility to improve ability to perform ADLs and IADLs, and to improve gait mechanics. LTG Duration 6 Four Impairment AROM deficits Short Term Goal (STG) Pt's bilateral hip internal rotation AROM to improve to 40 degrees or better to show show improving mobility to improve ability to perform ADLs and IADLs and to improve gait mechanics. STG Duration 4 Halfway Goal (LTG) Pt's bilateral hip internal rotation AROM to improve to 45 degrees or better to show show improving mobility to improve ability to perform ADLs and IADLs and to improve gait mechanics. LTG Duration 6 Three Impairment AROM deficits Short Term Goal (STG) Pt's lumbar spine bilateral rotation AROM to improve to 35 degrees with minimal to no pain to show improving mobility to improve ability to perform ADLs and IADLs. STG Duration 4 Halfway Goal (LTG) Pt's lumbar spine bilateral rotation AROM to improve to 40 degrees with minimal to no pain to show improving mobility to improve ability to perform ADLs and IADLs. LTG Duration 6 Two Impairment AROM deficits Short Term Goal (STG) Pt's lumbar spine bilateral lateral flexion (side bending) AROM to improve to superior patella with minimal to no pain to show improving mobility to improve ability to perform ADLs and IADLs. STG Duration 4 Hospital Monitor Goal (LTG) Pt's lumbar spine bilateral lateral flexion (side bending) AROM to improve to mid joint line with minimal to no pain to show improving mobility to improve ability to perform ADLs and IADLs. LTG Duration 6 One Impairment AROM deficits Short Term Goal (STG) Pt's lumbar spine flexion AROM to improve to distal shins with minimal to no pain to show improving mobility to improve ability to perform ADLs and IADLs. STG Duration 4 Hospital Monitor Goal (LTG) Pt's lumbar spine flexion AROM to improve to ankles with minimal to no pain to show improving mobility to improve ability to perform ADLs and IADLs. LTG Duration 6 Assessment Summary Assessment The pt presents with FWW this morning, however he demonstrated improper use of FWW. Therefore, gait training was performed to improve gait mechanics, with fair recall from the pt. Manual therapy was performed to decrease symptoms and improve right hip mobility, with mild improvement per pt. The pt was also educated on maintaining pain levels with therex or activity at 4/10 or less to help manage his symptoms. The pt continues to benefit from skilled PT to improve his symptoms. Physical Therapy Plan Frequency and Duration Frequency of Treatment 2x/Week Duration of treatment (weeks) 6 Plan of Care Start Date 04/10/23 Plan of Care End Date 05/22/23 Therapeutic Interventions Therapeutic Interventions Balance Training,Gait Training ,Home Exercise Program,Joint Mobilizations,Manual Therapy, Neuromuscular Re-education, Patient/Caregiver Education, Self-Care/Home Management,Soft Tissue Mobilization,Taping, Therapeutic Activities, Therapeutic Exercises Next Visit Focus/Plan Next Note Type Treatment Note Next Visit Plan Add core and LE strength and mobility exercises as tolerated.
--- NOTE | 2023-05-12 14:14 | PT.OTN ---
Current Diagnoses Cerebral infarction, unspecified (05/12/23) Physical Therapy Treatment Note PT-OP-A Visit Information Start: 04/10/23 12:59 Freq: Status: Active Protocol: Document 05/12/23 11:59 AB (Rec: 05/12/23 14:14 AB [id number]) Out-Patient Physical Therapy Visit Information Visit Information Visit Type Treatment Note Visit Start Time 11:45 Visit Stop Time 12:30 Total Visit Minutes 45 Visit Number 8 Evaluation Information Evaluation Date 04/10/23 PT-OP-B Current Condition Start: 04/10/23 12:59 Freq: Status: Active Protocol: Document 04/10/23 12:59 AB (Rec: 04/10/23 14:54 AB [id number]) Current Condition History of Current Condition Onset Date Chronic Current Complaints right low back/hip pain 8/10 at worst, 0-1/10 History of Current Condition The pt reports he sufferred a stroke on 02/27/23, which caused some right sided weakness, though he states these have resolved mostly, 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 He states went to [place], but he states they did nothing for him. [Chart reiview actually shows he was d/c to [facility] for additional rehab.] The pt reports history of right low back/hip pain that goes down his leg, which began years ago . This pain inhibits his ability to stand or walk for prolonged periods, and he endorses N/T in RLE occassionally. He reports he got a shot in his back to help his symptoms but it didn't help, but then he tried a second which relieved symptoms 80-90% for about 6-8 weeks, however he then sufferred a stroke and wasn't able to continue with his treatment. He also reports hx of bilateral CHUCK. The pt presents with SPC, though he reports he doesn't use it much when he is on his own. He also states he has a FWW which he uses in he mornings to get going. Prior Treatments and Tests Cortisone injections? Treatment Goals Patient/Caregiver Goals To help improve his symptoms PT-OP-C Subjective Start: 04/10/23 12:59 Freq: Status: Active Protocol: Document 05/12/23 11:59 AB (Rec: 05/12/23 14:14 AB [id number]) OP-PT Subjective Patient Comments Patient Comments The pt reports feeling like his hip is improving. He presents with FWW, but reports his hip is feeling well enough that he feels like he doesn't need it. Patient Reported Progress Improving PT-OP-G Mobility & Gait Start: 04/10/23 12:59 Freq: Status: Active Protocol: Document 04/10/23 12:59 AB (Rec: 04/10/23 14:54 AB [id number]) OP Gait Assessment Gait Gait Assistance Required: Independent Assistive Devices Assistive Device None,Straight Cane Gait Deviations General Gait Pattern Decreased Stride Length, Decreased Feet Clearance, Flexed Trunk Factors Limiting Gait Function Factors Limiting Gait Function Decreased Activity Tolerance, Decreased Strength,Limited Range of Motion,Pain Comments Gait Comments The pt lakcs heel-toe pattern, though it is not shuffling. Decreased hip flexion and extension limit his step length PT-OP-K Range of Motion Start: 04/10/23 12:59 Freq: Status: Active Protocol: Document 04/10/23 12:59 AB (Rec: 04/10/23 14:54 AB [id number]) Lumbar Spine Range of Motion Lumbar Spine Active Degrees Testing Position Standing Extension 10 Rotation Left 30 Rotation Right 30 Comments flexion: mid shins SB: distal thigh bilaterally Reproduction of symptoms with flexion, bilateral SB and rotation to R; all on right low back Hip Goniometric Range of Motion Hip Right Active Flexion w/Knee Flexed 100 Internal Rotation 35 External Rotation 20 Left Active Flexion w/Knee Flexed 100 Internal Rotation 35 External Rotation 25 PT-OP-M Strength Start: 04/10/23 12:59 Freq: Status: Active Protocol: Document 04/10/23 12:59 AB (Rec: 04/10/23 14:54 AB [id number]) Hip Strength Hip Manual Muscle Testing Right Flexion (L2) 4 Good Extension (S1) 3+ Fair+ Abduction 4- Good- Adduction 4 Good External Rotation 4- Good- Internal Rotation 4- Good- Left Flexion (L2) 4+ Good+ Extension (S1) 3+ Fair+ Abduction 4- Good- Adduction 4 Good External Rotation 4 Good Internal Rotation 4 Good Knee Strength Knee Manual Muscle Testing Right Flexion (S2) 4 Good Extension (L3) 4+ Good+ Left Flexion (S2) 4+ Good+ Extension (L3) 5 Normal PT-OP-Q Treatments Start: 04/10/23 12:59 Freq: Status: Active Protocol: Document 05/12/23 11:59 AB (Rec: 05/12/23 14:14 AB [id number]) Cardio Equipment Recumbent Elliptical (Biodex) Duration (Minutes) 7 Resistance 3 Gym Equipment Shuttle Recovery SL press Resistance 12# Shuttle Recovery Platform Stable Reps/Time 2x15 ea DL press Resistance 25#, 37# Shuttle Recovery Platform Stable Reps/Time 2x15 Therapeutic Exercises Supine Exercises Bridge Reps/Minutes 2x15 LTR Supine Exercise Name LTR feet together/ hip width Side bilateral Reps/Minutes 2 min Comments for hip and lumbar ROM Standing Exercises Crab walks Standing Exercise Name Lateral stepping Resistance none Reps/Minutes x 2 laps Heel raises Side bilateral Reps/Minutes 2x15 Comments BUE support STS Equipment Used 2x5 Comments BUE support on knees PT-OP-T Assessment and Plan Start: 04/10/23 12:59 Freq: Status: Active Protocol: Document 05/12/23 11:59 AB (Rec: 05/12/23 14:14 AB [id number]) Physical Therapy Assessment Goals Six Impairment Strength Short Term Goal (STG) Pt's gross LE MMT scores to improve to 4/5 or better to show improving muscular strength to improve ability to perform functional mobility and to decrease symptoms. STG Duration 4 Correction Goal (LTG) Pt's gross LE MMT scores to improve to 4+/5 or better to show improving muscular strength to improve ability to perform functional mobility and to decrease symptoms. LTG Duration 6 Five Impairment AROM deficits Short Term Goal (STG) Pt's bilateral hip external rotation AROM to improve to 30 degrees or better to show show improving mobility to improve ability to perform ADLs and IADLs, and to improve gait mechanics. STG Duration 4 Rn Obgyn Goal (LTG) Pt's bilateral hip external rotation AROM to improve to 35 degrees or better to show show improving mobility to improve ability to perform ADLs and IADLs, and to improve gait mechanics. LTG Duration 6 Four Impairment AROM deficits Short Term Goal (STG) Pt's bilateral hip internal rotation AROM to improve to 40 degrees or better to show show improving mobility to improve ability to perform ADLs and IADLs and to improve gait mechanics. STG Duration 4 Correction Goal (LTG) Pt's bilateral hip internal rotation AROM to improve to 45 degrees or better to show show improving mobility to improve ability to perform ADLs and IADLs and to improve gait mechanics. LTG Duration 6 Three Impairment AROM deficits Short Term Goal (STG) Pt's lumbar spine bilateral rotation AROM to improve to 35 degrees with minimal to no pain to show improving mobility to improve ability to perform ADLs and IADLs. STG Duration 4 Rn Obgyn Goal (LTG) Pt's lumbar spine bilateral rotation AROM to improve to 40 degrees with minimal to no pain to show improving mobility to improve ability to perform ADLs and IADLs. LTG Duration 6 Two Impairment AROM deficits Short Term Goal (STG) Pt's lumbar spine bilateral lateral flexion (side bending) AROM to improve to superior patella with minimal to no pain to show improving mobility to improve ability to perform ADLs and IADLs. STG Duration 4 Correction Goal (LTG) Pt's lumbar spine bilateral lateral flexion (side bending) AROM to improve to mid joint line with minimal to no pain to show improving mobility to improve ability to perform ADLs and IADLs. LTG Duration 6 One Impairment AROM deficits Short Term Goal (STG) Pt's lumbar spine flexion AROM to improve to distal shins with minimal to no pain to show improving mobility to improve ability to perform ADLs and IADLs. STG Duration 4 Rn Obgyn Goal (LTG) Pt's lumbar spine flexion AROM to improve to ankles with minimal to no pain to show improving mobility to improve ability to perform ADLs and IADLs. LTG Duration 6 Assessment Summary Assessment Due to improvement in symptoms , the pt was progressed by performing double and single leg press on shuttle recovery and additional standing exercises. The pt reported only mild increase (2-3/10) in symptoms towards the end of the session. He would benefit from continuing with these progressions next visit if he reports good tolerance. Physical Therapy Plan Frequency and Duration Frequency of Treatment 2x/Week Duration of treatment (weeks) 6 Plan of Care Start Date 04/10/23 Plan of Care End Date 05/22/23 Therapeutic Interventions Therapeutic Interventions Balance Training,Gait Training ,Home Exercise Program,Joint Mobilizations,Manual Therapy, Neuromuscular Re-education, Patient/Caregiver Education, Self-Care/Home Management,Soft Tissue Mobilization,Taping, Therapeutic Activities, Therapeutic Exercises Next Visit Focus/Plan Next Note Type Treatment Note Next Visit Plan Add core and LE strength and mobility exercises as tolerated.
--- NOTE | 2023-05-14 12:52 | PT.OTN ---
Current Diagnoses Cerebral infarction, unspecified (05/14/23) Physical Therapy Treatment Note PT-OP-A Visit Information Start: 04/10/23 12:59 Freq: Status: Active Protocol: Document 05/14/23 11:41 SW (Rec: 05/14/23 12:52 SW [id number]) Out-Patient Physical Therapy Visit Information Visit Information Visit Type Treatment Note Visit Start Time 11:45 Visit Stop Time 12:30 Total Visit Minutes 45 Visit Number 9 Number of FIRE ALARM TECHNICIAN Visits 1 PT-OP-B Current Condition Start: 04/10/23 12:59 Freq: Status: Active Protocol: Document 04/10/23 12:59 AB (Rec: 04/10/23 14:54 AB [id number]) Current Condition History of Current Condition Onset Date Chronic Current Complaints right low back/hip pain 8/10 at worst, 0-1/10 History of Current Condition The pt reports he sufferred a stroke on 02/27/23, which caused some right sided weakness, though he states these have resolved mostly, 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 He states went to [place], but he states they did nothing for him. [Chart reiview actually shows he was d/c to [facility] for additional rehab.] The pt reports history of right low back/hip pain that goes down his leg, which began years ago . This pain inhibits his ability to stand or walk for prolonged periods, and he endorses N/T in RLE occassionally. He reports he got a shot in his back to help his symptoms but it didn't help, but then he tried a second which relieved symptoms 80-90% for about 6-8 weeks, however he then sufferred a stroke and wasn't able to continue with his treatment. He also reports hx of bilateral CHUCK. The pt presents with SPC, though he reports he doesn't use it much when he is on his own. He also states he has a FWW which he uses in he mornings to get going. Prior Treatments and Tests Cortisone injections? Treatment Goals Patient/Caregiver Goals To help improve his symptoms PT-OP-C Subjective Start: 04/10/23 12:59 Freq: Status: Active Protocol: Document 05/14/23 11:41 SW (Rec: 05/14/23 12:52 [id number]) OP-PT Subjective Patient Comments Patient Comments Pt reports about the same after last session, denied increase in symptoms. Ambulated to session today with SPC, pt reports it feels less bulky. PT-OP-G Mobility & Gait Start: 04/10/23 12:59 Freq: Status: Active Protocol: Document 04/10/23 12:59 AB (Rec: 04/10/23 14:54 AB [id number]) OP Gait Assessment Gait Gait Assistance Required: Independent Assistive Devices Assistive Device None,Straight Cane Gait Deviations General Gait Pattern Decreased Stride Length, Decreased Feet Clearance, Flexed Trunk Factors Limiting Gait Function Factors Limiting Gait Function Decreased Activity Tolerance, Decreased Strength,Limited Range of Motion,Pain Comments Gait Comments The pt lakcs heel-toe pattern, though it is not shuffling. Decreased hip flexion and extension limit his step length PT-OP-K Range of Motion Start: 04/10/23 12:59 Freq: Status: Active Protocol: Document 04/10/23 12:59 AB (Rec: 04/10/23 14:54 AB [id number]) Lumbar Spine Range of Motion Lumbar Spine Active Degrees Testing Position Standing Extension 10 Rotation Left 30 Rotation Right 30 Comments flexion: mid shins SB: distal thigh bilaterally Reproduction of symptoms with flexion, bilateral SB and rotation to R; all on right low back Hip Goniometric Range of Motion Hip Right Active Flexion w/Knee Flexed 100 Internal Rotation 35 External Rotation 20 Left Active Flexion w/Knee Flexed 100 Internal Rotation 35 External Rotation 25 PT-OP-M Strength Start: 04/10/23 12:59 Freq: Status: Active Protocol: Document 04/10/23 12:59 AB (Rec: 04/10/23 14:54 AB [id number]) Hip Strength Hip Manual Muscle Testing Right Flexion (L2) 4 Good Extension (S1) 3+ Fair+ Abduction 4- Good- Adduction 4 Good External Rotation 4- Good- Internal Rotation 4- Good- Left Flexion (L2) 4+ Good+ Extension (S1) 3+ Fair+ Abduction 4- Good- Adduction 4 Good External Rotation 4 Good Internal Rotation 4 Good Knee Strength Knee Manual Muscle Testing Right Flexion (S2) 4 Good Extension (L3) 4+ Good+ Left Flexion (S2) 4+ Good+ Extension (L3) 5 Normal PT-OP-Q Treatments Start: 04/10/23 12:59 Freq: Status: Active Protocol: Document 05/14/23 11:41 SW (Rec: 05/14/23 12:52 [id number]) Cardio Equipment Recumbent Elliptical (Biodex) Duration (Minutes) 7 Resistance 3 Gym Equipment Shuttle Recovery SL press Resistance 12# Shuttle Recovery Platform Stable Reps/Time 2x15 ea DL press Resistance 37# Shuttle Recovery Platform Stable Reps/Time 2x15 Therapeutic Exercises Supine Exercises Bridge Reps/Minutes 2x15 LTR Supine Exercise Name LTR feet together/ hip width Side bilateral Reps/Minutes 2 min Comments for hip and lumbar ROM Standing Exercises Crab walks Standing Exercise Name Lateral stepping Resistance none Reps/Minutes x 2 laps Heel raises Side bilateral Reps/Minutes 2x15 Comments BUE support STS Equipment Used 2x5 Comments BUE support on knees Gait Training Gait Activity Gait with SPC Device Used SPC Surface Stable Distance/Duration x 10 ft Treatment Focus correct use/ UE during ambulation with SPC Manual Therapy Treatment Joint Mobilizations Hip inferior mob Joint Hip Direction inferior Grade III Body Position Supine Reps/Duration 4 min ea Comments 1 set: with ER/IR PROM 2 set: with hip flexion PROM Hip - lateral mob Joint Hip Direction lateral Grade II Body Position Hooklying Reps/Duration 6 min PT-OP-T Assessment and Plan Start: 04/10/23 12:59 Freq: Status: Active Protocol: Document 05/14/23 11:41 (Rec: 05/14/23 12:52 [id number]) Physical Therapy Assessment Goals Six Impairment Strength Short Term Goal (STG) Pt's gross LE MMT scores to improve to 4/5 or better to show improving muscular strength to improve ability to perform functional mobility and to decrease symptoms. STG Duration 4 Alf Goal (LTG) Pt's gross LE MMT scores to improve to 4+/5 or better to show improving muscular strength to improve ability to perform functional mobility and to decrease symptoms. LTG Duration 6 Five Impairment AROM deficits Short Term Goal (STG) Pt's bilateral hip external rotation AROM to improve to 30 degrees or better to show show improving mobility to improve ability to perform ADLs and IADLs, and to improve gait mechanics. STG Duration 4 Alf Goal (LTG) Pt's bilateral hip external rotation AROM to improve to 35 degrees or better to show show improving mobility to improve ability to perform ADLs and IADLs, and to improve gait mechanics. LTG Duration 6 Four Impairment AROM deficits Short Term Goal (STG) Pt's bilateral hip internal rotation AROM to improve to 40 degrees or better to show show improving mobility to improve ability to perform ADLs and IADLs and to improve gait mechanics. STG Duration 4 Alf Goal (LTG) Pt's bilateral hip internal rotation AROM to improve to 45 degrees or better to show show improving mobility to improve ability to perform ADLs and IADLs and to improve gait mechanics. LTG Duration 6 Three Impairment AROM deficits Short Term Goal (STG) Pt's lumbar spine bilateral rotation AROM to improve to 35 degrees with minimal to no pain to show improving mobility to improve ability to perform ADLs and IADLs. STG Duration 4 Downstream Biomanufacturing Technician Goal (LTG) Pt's lumbar spine bilateral rotation AROM to improve to 40 degrees with minimal to no pain to show improving mobility to improve ability to perform ADLs and IADLs. LTG Duration 6 Two Impairment AROM deficits Short Term Goal (STG) Pt's lumbar spine bilateral lateral flexion (side bending) AROM to improve to superior patella with minimal to no pain to show improving mobility to improve ability to perform ADLs and IADLs. STG Duration 4 Alf Goal (LTG) Pt's lumbar spine bilateral lateral flexion (side bending) AROM to improve to mid joint line with minimal to no pain to show improving mobility to improve ability to perform ADLs and IADLs. LTG Duration 6 One Impairment AROM deficits Short Term Goal (STG) Pt's lumbar spine flexion AROM to improve to distal shins with minimal to no pain to show improving mobility to improve ability to perform ADLs and IADLs. STG Duration 4 Downstream Biomanufacturing Technician Goal (LTG) Pt's lumbar spine flexion AROM to improve to ankles with minimal to no pain to show improving mobility to improve ability to perform ADLs and IADLs. LTG Duration 6 Assessment Summary Assessment Pt ambulated to session with SPC today educated patient on mechanics and correct UE. Continued progression from last session, d/t good pt tolerance. Revisisted hip mobilizations per patient reports of decreased pain post . Minimal pain level increase (2-3 max/10) throughout session today. Physical Therapy Plan Frequency and Duration Frequency of Treatment 2x/Week Duration of treatment (weeks) 6 Plan of Care Start Date 04/10/23 Plan of Care End Date 05/22/23 Therapeutic Interventions Therapeutic Interventions Balance Training,Gait Training ,Home Exercise Program,Joint Mobilizations,Manual Therapy, Neuromuscular Re-education, Patient/Caregiver Education, Self-Care/Home Management,Soft Tissue Mobilization,Taping, Therapeutic Activities, Therapeutic Exercises Next Visit Focus/Plan Next Note Type Treatment Note Next Visit Plan Add core and LE strength and mobility exercises as tolerated.
--- NOTE | 2023-05-19 14:18 | PT.OTN ---
Current Diagnoses Cerebral infarction, unspecified (05/19/23) Physical Therapy Treatment Note PT-OP-A Visit Information Start: 04/10/23 12:59 Freq: Status: Active Protocol: Document 05/19/23 11:53 AB (Rec: 05/19/23 14:17 AB [id number]) Out-Patient Physical Therapy Visit Information Visit Information Visit Type Progress Note Visit Start Time 11:45 Visit Stop Time 12:30 Total Visit Minutes 45 Visit Number 10 PT-OP-B Current Condition Start: 04/10/23 12:59 Freq: Status: Active Protocol: Document 05/19/23 11:53 AB (Rec: 05/19/23 14:17 AB [id number]) Current Condition History of Current Condition Onset Date Chronic Current Complaints right low back/hip pain 8/10 at worst, 0-1/10 History of Current Condition The pt reports he sufferred a stroke on 02/27/23, which caused some right sided weakness, though he states these have resolved mostly, 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 He states went to [place], but he states they did nothing for him. [Chart reiview actually shows he was d/c to [facility] for additional rehab.] The pt reports history of right low back/hip pain that goes down his leg, which began years ago . This pain inhibits his ability to stand or walk for prolonged periods, and he endorses N/T in RLE occassionally. He reports he got a shot in his back to help his symptoms but it didn't help, but then he tried a second which relieved symptoms 80-90% for about 6-8 weeks, however he then sufferred a stroke and wasn't able to continue with his treatment. He also reports hx of bilateral CHUCK. The pt presents with SPC, though he reports he doesn't use it much when he is on his own. He also states he has a FWW which he uses in he mornings to get going. Prior Treatments and Tests Cortisone injections? Treatment Goals Patient/Caregiver Goals To help improve his symptoms PT-OP-C Subjective Start: 04/10/23 12:59 Freq: Status: Active Protocol: Document 05/19/23 11:53 AB (Rec: 05/19/23 14:17 AB [id number]) Patient Questionnaires Lower Extremity Functional Scale LEFS Score 33/80 LEFS Impairment 40 to 59% Impaired (Score 32- 47) Oswestry Low Back Index Oswestry Score 13/50 Oswestry Impairment 1 to 19% Impaired (Score 1-19) PT-OP-G Mobility & Gait Start: 04/10/23 12:59 Freq: Status: Active Protocol: Document 04/10/23 12:59 AB (Rec: 04/10/23 14:54 AB [id number]) OP Gait Assessment Gait Gait Assistance Required: Independent Assistive Devices Assistive Device None,Straight Cane Gait Deviations General Gait Pattern Decreased Stride Length, Decreased Feet Clearance, Flexed Trunk Factors Limiting Gait Function Factors Limiting Gait Function Decreased Activity Tolerance, Decreased Strength,Limited Range of Motion,Pain Comments Gait Comments The pt lakcs heel-toe pattern, though it is not shuffling. Decreased hip flexion and extension limit his step length PT-OP-K Range of Motion Start: 04/10/23 12:59 Freq: Status: Active Protocol: Document 05/19/23 11:53 AB (Rec: 05/19/23 14:17 AB [id number]) Lumbar Spine Range of Motion Lumbar Spine Active Degrees Testing Position Standing Extension 10 Rotation Left 30 Rotation Right 30 Comments flexion: mid shins SB: distal thigh bilaterally Reproduction of symptoms with flexion, bilateral SB and rotation to R; all on right low back (no change from initial eval) Hip Goniometric Range of Motion Hip Right Active Flexion w/Knee Flexed 110 Internal Rotation 35 External Rotation 20 Left Active Flexion w/Knee Flexed 110 Internal Rotation 35 External Rotation 25 PT-OP-M Strength Start: 04/10/23 12:59 Freq: Status: Active Protocol: Document 05/19/23 11:53 AB (Rec: 05/19/23 14:17 AB [id number]) Hip Strength Hip Manual Muscle Testing Right Flexion (L2) 4+ Good+ Extension (S1) 4- Good- Abduction 4- Good- Adduction 4 Good External Rotation 4- Good- Internal Rotation 4 Good Left Flexion (L2) 4+ Good+ Extension (S1) 4- Good- Abduction 4- Good- Adduction 4 Good External Rotation 4 Good Internal Rotation 4 Good Knee Strength Knee Manual Muscle Testing Right Flexion (S2) 4+ Good+ Extension (L3) 5 Normal Left Flexion (S2) 4+ Good+ Extension (L3) 5 Normal PT-OP-Q Treatments Start: 04/10/23 12:59 Freq: Status: Active Protocol: Document 05/19/23 11:53 AB (Rec: 05/19/23 14:17 AB [id number]) Cardio Equipment Recumbent Stepper (Sci-Fit) Duration (Minutes) 5 Therapeutic Exercises Supine Exercises LTR Supine Exercise Name LTR feet together/ hip width Side bilateral Reps/Minutes 2 min Comments for hip and lumbar ROM Standing Exercises Marching Side bilateral Reps/Minutes 2x10 STS Standing Exercise Name STS from high/low plinth Equipment Used 1x5, 2x8 Comments no UE support Self-Care/Home Management Treatment Education Patient Education Home Exercise Program,Pain Management Other Education The pt was educated on updated HEP, including standing exercises to improve strength and overall load tolerance of soft tissues. The pt was also educated on use of modalities to improve his symptoms. PT-OP-T Assessment and Plan Start: 04/10/23 12:59 Freq: Status: Active Protocol: Document 05/19/23 11:53 AB (Rec: 05/19/23 14:17 AB [id number]) Physical Therapy Assessment Goals Six Impairment Strength Short Term Goal (STG) Pt's gross LE MMT scores to improve to 4/5 or better to show improving muscular strength to improve ability to perform functional mobility and to decrease symptoms. STG Duration 4 Fiber Optics Technician Goal (LTG) Pt's gross LE MMT scores to improve to 4+/5 or better to show improving muscular strength to improve ability to perform functional mobility and to decrease symptoms. LTG Duration 6 Five Impairment AROM deficits Short Term Goal (STG) Pt's bilateral hip external rotation AROM to improve to 30 degrees or better to show show improving mobility to improve ability to perform ADLs and IADLs, and to improve gait mechanics. STG Duration 4 Fiber Optics Technician Goal (LTG) Pt's bilateral hip external rotation AROM to improve to 35 degrees or better to show show improving mobility to improve ability to perform ADLs and IADLs, and to improve gait mechanics. LTG Duration 6 Four Impairment AROM deficits Short Term Goal (STG) Pt's bilateral hip internal rotation AROM to improve to 40 degrees or better to show show improving mobility to improve ability to perform ADLs and IADLs and to improve gait mechanics. STG Duration 4 Fiber Optics Technician Goal (LTG) Pt's bilateral hip internal rotation AROM to improve to 45 degrees or better to show show improving mobility to improve ability to perform ADLs and IADLs and to improve gait mechanics. LTG Duration 6 Three Impairment AROM deficits Short Term Goal (STG) Pt's lumbar spine bilateral rotation AROM to improve to 35 degrees with minimal to no pain to show improving mobility to improve ability to perform ADLs and IADLs. STG Duration 4 Assisted Goal (LTG) Pt's lumbar spine bilateral rotation AROM to improve to 40 degrees with minimal to no pain to show improving mobility to improve ability to perform ADLs and IADLs. LTG Duration 6 Two Impairment AROM deficits Short Term Goal (STG) Pt's lumbar spine bilateral lateral flexion (side bending) AROM to improve to superior patella with minimal to no pain to show improving mobility to improve ability to perform ADLs and IADLs. STG Duration 4 Fiber Optics Technician Goal (LTG) Pt's lumbar spine bilateral lateral flexion (side bending) AROM to improve to mid joint line with minimal to no pain to show improving mobility to improve ability to perform ADLs and IADLs. LTG Duration 6 One Impairment AROM deficits Short Term Goal (STG) Pt's lumbar spine flexion AROM to improve to distal shins with minimal to no pain to show improving mobility to improve ability to perform ADLs and IADLs. STG Duration 4 Fiber Optics Technician Goal (LTG) Pt's lumbar spine flexion AROM to improve to ankles with minimal to no pain to show improving mobility to improve ability to perform ADLs and IADLs. LTG Duration 6 Progress Towards Goals Progress Towards Goals Slow Progress due to Activity Tolerance,Slow Progress - Other Progress Comments Pain symptoms Assessment Summary Assessment Bill has completed 10 visits of skilled PT to address low back/hip pain which increases with standing/walking activities. The pt demonstrates improvement in his LE strength, but no significant change is noted in his lumbar spine and hip AROM or in his patient questionnaire. Based on his improvements but continued limitations and deficits, the pt would benefit from continued skilled PT as per his updated POC in order to continue making progress towards his goals. Additionally, the pt would benefit from continued skilled PT coupled with application of cortisone injection to improve his outcomes. Physical Therapy Plan Frequency and Duration Frequency of Treatment 2x/Week Duration of treatment (weeks) 6 Plan of Care Start Date 05/19/23 Plan of Care End Date 06/30/23 Therapeutic Interventions Therapeutic Interventions Balance Training,Gait Training ,Home Exercise Program,Joint Mobilizations,Manual Therapy, Neuromuscular Re-education, Patient/Caregiver Education, Self-Care/Home Management,Soft Tissue Mobilization,Taping, Therapeutic Activities, Therapeutic Exercises Next Visit Focus/Plan Next Note Type Treatment Note Next Visit Plan Add core and LE strength and mobility exercises as tolerated.
--- NOTE | 2023-05-19 14:19 | PT.OPPOC ---
Physical, Occupational & Speech Therapy At [facility] Current Diagnoses Cerebral infarction, unspecified (05/19/23) Visit Care Team Role Provider Type Iliana Saravia PA-C Family Provider Advanced Treasury Consultant Primary Care Provider Specialty: Medical Address: [address] [place] [address], [id number] Email: Marlen Garibay MD Attending Provider Physician Referring Provider Specialty: Internal Medicine Address: [place], [address] Phone: Email: Plan Of Care PT-OP-T Assessment and Plan Start: 04/10/23 12:59 Freq: Status: Active Protocol: Document 05/19/23 11:53 AB (Rec: 05/19/23 14:17 AB [id number]) Physical Therapy Assessment Goals Six Impairment Strength Short Term Goal (STG) Pt's gross LE MMT scores to improve to 4/5 or better to show improving muscular strength to improve ability to perform functional mobility and to decrease symptoms. STG Duration 4 Chcf Goal (LTG) Pt's gross LE MMT scores to improve to 4+/5 or better to show improving muscular strength to improve ability to perform functional mobility and to decrease symptoms. LTG Duration 6 Five Impairment AROM deficits Short Term Goal (STG) Pt's bilateral hip external rotation AROM to improve to 30 degrees or better to show show improving mobility to improve ability to perform ADLs and IADLs, and to improve gait mechanics. STG Duration 4 Instructor Nurse Goal (LTG) Pt's bilateral hip external rotation AROM to improve to 35 degrees or better to show show improving mobility to improve ability to perform ADLs and IADLs, and to improve gait mechanics. LTG Duration 6 Four Impairment AROM deficits Short Term Goal (STG) Pt's bilateral hip internal rotation AROM to improve to 40 degrees or better to show show improving mobility to improve ability to perform ADLs and IADLs and to improve gait mechanics. STG Duration 4 Instructor Nurse Goal (LTG) Pt's bilateral hip internal rotation AROM to improve to 45 degrees or better to show show improving mobility to improve ability to perform ADLs and IADLs and to improve gait mechanics. LTG Duration 6 Three Impairment AROM deficits Short Term Goal (STG) Pt's lumbar spine bilateral rotation AROM to improve to 35 degrees with minimal to no pain to show improving mobility to improve ability to perform ADLs and IADLs. STG Duration 4 Chcf Goal (LTG) Pt's lumbar spine bilateral rotation AROM to improve to 40 degrees with minimal to no pain to show improving mobility to improve ability to perform ADLs and IADLs. LTG Duration 6 Two Impairment AROM deficits Short Term Goal (STG) Pt's lumbar spine bilateral lateral flexion (side bending) AROM to improve to superior patella with minimal to no pain to show improving mobility to improve ability to perform ADLs and IADLs. STG Duration 4 Instructor Nurse Goal (LTG) Pt's lumbar spine bilateral lateral flexion (side bending) AROM to improve to mid joint line with minimal to no pain to show improving mobility to improve ability to perform ADLs and IADLs. LTG Duration 6 One Impairment AROM deficits Short Term Goal (STG) Pt's lumbar spine flexion AROM to improve to distal shins with minimal to no pain to show improving mobility to improve ability to perform ADLs and IADLs. STG Duration 4 Instructor Nurse Goal (LTG) Pt's lumbar spine flexion AROM to improve to ankles with minimal to no pain to show improving mobility to improve ability to perform ADLs and IADLs. LTG Duration 6 Progress Towards Goals Progress Towards Goals Slow Progress due to Activity Tolerance,Slow Progress - Other Progress Comments Pain symptoms Assessment Summary Assessment Marshal has completed 10 visits of skilled PT to address low back/hip pain which increases with standing/walking activities. The pt demonstrates improvement in his LE strength, but no significant change is noted in his lumbar spine and hip AROM or in his patient questionnaire. Based on his improvements but continued limitations and deficits, the pt would benefit from continued skilled PT as per his updated POC in order to continue making progress towards his goals. Additionally, the pt would benefit from continued skilled PT coupled with application of cortisone injection to improve his outcomes. Physical Therapy Plan Frequency and Duration Frequency of Treatment 2x/Week Duration of treatment (weeks) 6 Plan of Care Start Date 05/19/23 Plan of Care End Date 06/30/23 Therapeutic Interventions Therapeutic Interventions Balance Training,Gait Training ,Home Exercise Program,Joint Mobilizations,Manual Therapy, Neuromuscular Re-education, Patient/Caregiver Education, Self-Care/Home Management,Soft Tissue Mobilization,Taping, Therapeutic Activities, Therapeutic Exercises Next Visit Focus/Plan Next Note Type Treatment Note Next Visit Plan Add core and LE strength and mobility exercises as tolerated. Plan of Care Dates Plan of Care Start Date 05/19/23 Plan of Care End Date 06/30/23 Electronically Signed by: Deandre Munoz, THIAGO 05/19/23 0000 If you are in agreement with this Plan of Care, please return a signed and dated copy. I have reviewed this Plan of Care and certify that the skilled therapy services above are required to meet the patient?s needs. Physician Signature Date Printed Name and Credentials Clinical Instructor Signature Printed Name and Credentials
--- NOTE | 2023-05-21 12:52 | PT.OTN ---
Current Diagnoses Cerebral infarction, unspecified (05/21/23) Physical Therapy Treatment Note PT-OP-A Visit Information Start: 04/10/23 12:59 Freq: Status: Active Protocol: Document 05/21/23 11:52 SW (Rec: 05/21/23 12:52 SW [id number]) Out-Patient Physical Therapy Visit Information Visit Information Visit Type Treatment Note Visit Start Time 11:48 Visit Stop Time 12:30 Total Visit Minutes 42 Visit Number 11 Number of PATIENT FINANCIAL ADVOCATE Visits 1 PT-OP-B Current Condition Start: 04/10/23 12:59 Freq: Status: Active Protocol: Document 05/19/23 11:53 AB (Rec: 05/19/23 14:17 AB [id number]) Current Condition History of Current Condition Onset Date Chronic Current Complaints right low back/hip pain 8/10 at worst, 0-1/10 History of Current Condition The pt reports he sufferred a stroke on 02/27/23, which caused some right sided weakness, though he states these have resolved mostly, 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 He states went to [facility], but he states they did nothing for him. [Chart reiview actually shows he was d/c to [facility] for additional rehab.] The pt reports history of right low back/hip pain that goes down his leg, which began years ago . This pain inhibits his ability to stand or walk for prolonged periods, and he endorses N/T in RLE occassionally. He reports he got a shot in his back to help his symptoms but it didn't help, but then he tried a second which relieved symptoms 80-90% for about 6-8 weeks, however he then sufferred a stroke and wasn't able to continue with his treatment. He also reports hx of bilateral CHUCK. The pt presents with SPC, though he reports he doesn't use it much when he is on his own. He also states he has a FWW which he uses in he mornings to get going. Prior Treatments and Tests Cortisone injections? Treatment Goals Patient/Caregiver Goals To help improve his symptoms PT-OP-C Subjective Start: 04/10/23 12:59 Freq: Status: Active Protocol: Document 05/21/23 11:52 SW (Rec: 05/21/23 12:52 SW [id number]) OP-PT Subjective Patient Comments Patient Comments Pt reports he has an appointment coming up for cortisone. Has some good days and some bad days, today is one of the bad days. PT-OP-G Mobility & Gait Start: 04/10/23 12:59 Freq: Status: Active Protocol: Document 04/10/23 12:59 AB (Rec: 04/10/23 14:54 AB [id number]) OP Gait Assessment Gait Gait Assistance Required: Independent Assistive Devices Assistive Device None,Straight Cane Gait Deviations General Gait Pattern Decreased Stride Length, Decreased Feet Clearance, Flexed Trunk Factors Limiting Gait Function Factors Limiting Gait Function Decreased Activity Tolerance, Decreased Strength,Limited Range of Motion,Pain Comments Gait Comments The pt lakcs heel-toe pattern, though it is not shuffling. Decreased hip flexion and extension limit his step length PT-OP-K Range of Motion Start: 04/10/23 12:59 Freq: Status: Active Protocol: Document 05/19/23 11:53 AB (Rec: 05/19/23 14:17 AB [id number]) Lumbar Spine Range of Motion Lumbar Spine Active Degrees Testing Position Standing Extension 10 Rotation Left 30 Rotation Right 30 Comments flexion: mid shins SB: distal thigh bilaterally Reproduction of symptoms with flexion, bilateral SB and rotation to R; all on right low back (no change from initial eval) Hip Goniometric Range of Motion Hip Right Active Flexion w/Knee Flexed 110 Internal Rotation 35 External Rotation 20 Left Active Flexion w/Knee Flexed 110 Internal Rotation 35 External Rotation 25 PT-OP-M Strength Start: 04/10/23 12:59 Freq: Status: Active Protocol: Document 05/19/23 11:53 AB (Rec: 05/19/23 14:17 AB [id number]) Hip Strength Hip Manual Muscle Testing Right Flexion (L2) 4+ Good+ Extension (S1) 4- Good- Abduction 4- Good- Adduction 4 Good External Rotation 4- Good- Internal Rotation 4 Good Left Flexion (L2) 4+ Good+ Extension (S1) 4- Good- Abduction 4- Good- Adduction 4 Good External Rotation 4 Good Internal Rotation 4 Good Knee Strength Knee Manual Muscle Testing Right Flexion (S2) 4+ Good+ Extension (L3) 5 Normal Left Flexion (S2) 4+ Good+ Extension (L3) 5 Normal PT-OP-Q Treatments Start: 04/10/23 12:59 Freq: Status: Active Protocol: Document 05/21/23 11:52 (Rec: 05/21/23 12:52 [id number]) Cardio Equipment Recumbent Bicycle Duration (Minutes) 5 Resistance 5 Gym Equipment Shuttle Recovery DL press Resistance 50# Shuttle Recovery Platform Stable Reps/Time 2x15 Therapeutic Exercises Supine Exercises SKTC Supine Exercise Name Stretch Side bilateral Reps/Minutes 2x30 LTR Supine Exercise Name LTR feet together/ hip width Side bilateral Reps/Minutes 2 min Comments for hip and lumbar ROM Sitting Exercises Lumbar rotation Sitting Exercise Name Seated Lumbar rotation Side bilateral Reps/Minutes x 2 min Comments cues for compensation Standing Exercises Crab walks Standing Exercise Name Lateral stepping Resistance BTB Reps/Minutes x 2 laps each Comments Good response, no increase in symptoms STS Standing Exercise Name STS from high/low plinth Equipment Used 1x5, 2x8 Comments no UE support Other Exercises Hip IR/ER Other Exercise Name Hip mobility RLE on stool Side right Reps/Minutes 2 x 10 Step ups Other Exercise Name Step Ups Side bilateral Resistance 4# Equipment Used @ stairs Reps/Minutes x 10 ea Comments cues for gluteal activation, posture PT-OP-T Assessment and Plan Start: 04/10/23 12:59 Freq: Status: Active Protocol: Document 05/21/23 11:52 (Rec: 05/21/23 12:52 [id number]) Physical Therapy Assessment Goals Six Impairment Strength Short Term Goal (STG) Pt's gross LE MMT scores to improve to 4/5 or better to show improving muscular strength to improve ability to perform functional mobility and to decrease symptoms. STG Duration 4 Pattern Shop Supervisor Goal (LTG) Pt's gross LE MMT scores to improve to 4+/5 or better to show improving muscular strength to improve ability to perform functional mobility and to decrease symptoms. LTG Duration 6 Five Impairment AROM deficits Short Term Goal (STG) Pt's bilateral hip external rotation AROM to improve to 30 degrees or better to show show improving mobility to improve ability to perform ADLs and IADLs, and to improve gait mechanics. STG Duration 4 Pattern Shop Supervisor Goal (LTG) Pt's bilateral hip external rotation AROM to improve to 35 degrees or better to show show improving mobility to improve ability to perform ADLs and IADLs, and to improve gait mechanics. LTG Duration 6 Four Impairment AROM deficits Short Term Goal (STG) Pt's bilateral hip internal rotation AROM to improve to 40 degrees or better to show show improving mobility to improve ability to perform ADLs and IADLs and to improve gait mechanics. STG Duration 4 Mcc Goal (LTG) Pt's bilateral hip internal rotation AROM to improve to 45 degrees or better to show show improving mobility to improve ability to perform ADLs and IADLs and to improve gait mechanics. LTG Duration 6 Three Impairment AROM deficits Short Term Goal (STG) Pt's lumbar spine bilateral rotation AROM to improve to 35 degrees with minimal to no pain to show improving mobility to improve ability to perform ADLs and IADLs. STG Duration 4 Pattern Shop Supervisor Goal (LTG) Pt's lumbar spine bilateral rotation AROM to improve to 40 degrees with minimal to no pain to show improving mobility to improve ability to perform ADLs and IADLs. LTG Duration 6 Two Impairment AROM deficits Short Term Goal (STG) Pt's lumbar spine bilateral lateral flexion (side bending) AROM to improve to superior patella with minimal to no pain to show improving mobility to improve ability to perform ADLs and IADLs. STG Duration 4 Pattern Shop Supervisor Goal (LTG) Pt's lumbar spine bilateral lateral flexion (side bending) AROM to improve to mid joint line with minimal to no pain to show improving mobility to improve ability to perform ADLs and IADLs. LTG Duration 6 One Impairment AROM deficits Short Term Goal (STG) Pt's lumbar spine flexion AROM to improve to distal shins with minimal to no pain to show improving mobility to improve ability to perform ADLs and IADLs. STG Duration 4 Pattern Shop Supervisor Goal (LTG) Pt's lumbar spine flexion AROM to improve to ankles with minimal to no pain to show improving mobility to improve ability to perform ADLs and IADLs. LTG Duration 6 Assessment Summary Assessment Progressed standing LE strengthening this session, tolerated well. C/O min increased pain when static standing on RLE, pt reports tolerable. Pt reports many times throughout session about upcoming injection. Physical Therapy Plan Frequency and Duration Frequency of Treatment 2x/Week Duration of treatment (weeks) 6 Plan of Care Start Date 05/19/23 Plan of Care End Date 06/30/23 Therapeutic Interventions Therapeutic Interventions Balance Training,Gait Training ,Home Exercise Program,Joint Mobilizations,Manual Therapy, Neuromuscular Re-education, Patient/Caregiver Education, Self-Care/Home Management,Soft Tissue Mobilization,Taping, Therapeutic Activities, Therapeutic Exercises Next Visit Focus/Plan Next Note Type Treatment Note Next Visit Plan Add core and LE strength and mobility exercises as tolerated.
--- NOTE | 2023-05-28 13:05 | PT.OTN ---
Current Diagnoses Cerebral infarction, unspecified (05/28/23) Physical Therapy Treatment Note PT-OP-A Visit Information Start: 04/10/23 12:59 Freq: Status: Active Protocol: Document 05/28/23 11:45 SW (Rec: 05/28/23 13:05 [id number]) Out-Patient Physical Therapy Visit Information Visit Information Visit Type Treatment Note Visit Start Time 11:45 Visit Stop Time 12:28 Total Visit Minutes 43 Visit Number 12 Number of CHEMICAL INSTRUMENTATION OFFICER Visits 2 PT-OP-B Current Condition Start: 04/10/23 12:59 Freq: Status: Active Protocol: Document 05/19/23 11:53 AB (Rec: 05/19/23 14:17 AB [id number]) Current Condition History of Current Condition Onset Date Chronic Current Complaints right low back/hip pain 8/10 at worst, 0-1/10 History of Current Condition The pt reports he sufferred a stroke on 02/27/23, which caused some right sided weakness, though he states these have resolved mostly, 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 He states went to [place], but he states they did nothing for him. [Chart reiview actually shows he was d/c to [facility] for additional rehab.] The pt reports history of right low back/hip pain that goes down his leg, which began years ago . This pain inhibits his ability to stand or walk for prolonged periods, and he endorses N/T in RLE occassionally. He reports he got a shot in his back to help his symptoms but it didn't help, but then he tried a second which relieved symptoms 80-90% for about 6-8 weeks, however he then sufferred a stroke and wasn't able to continue with his treatment. He also reports hx of bilateral CHUCK. The pt presents with SPC, though he reports he doesn't use it much when he is on his own. He also states he has a FWW which he uses in he mornings to get going. Prior Treatments and Tests Cortisone injections? Treatment Goals Patient/Caregiver Goals To help improve his symptoms PT-OP-C Subjective Start: 04/10/23 12:59 Freq: Status: Active Protocol: Document 05/28/23 11:45 SW (Rec: 05/28/23 13:05 [id number]) OP-PT Subjective Patient Comments Patient Comments Pt reports he has good days and bad days, looking forward to his procedure in two weeks. PT-OP-G Mobility & Gait Start: 04/10/23 12:59 Freq: Status: Active Protocol: Document 04/10/23 12:59 AB (Rec: 04/10/23 14:54 AB [id number]) OP Gait Assessment Gait Gait Assistance Required: Independent Assistive Devices Assistive Device None,Straight Cane Gait Deviations General Gait Pattern Decreased Stride Length, Decreased Feet Clearance, Flexed Trunk Factors Limiting Gait Function Factors Limiting Gait Function Decreased Activity Tolerance, Decreased Strength,Limited Range of Motion,Pain Comments Gait Comments The pt lakcs heel-toe pattern, though it is not shuffling. Decreased hip flexion and extension limit his step length PT-OP-K Range of Motion Start: 04/10/23 12:59 Freq: Status: Active Protocol: Document 05/19/23 11:53 AB (Rec: 05/19/23 14:17 AB [id number]) Lumbar Spine Range of Motion Lumbar Spine Active Degrees Testing Position Standing Extension 10 Rotation Left 30 Rotation Right 30 Comments flexion: mid shins SB: distal thigh bilaterally Reproduction of symptoms with flexion, bilateral SB and rotation to R; all on right low back (no change from initial eval) Hip Goniometric Range of Motion Hip Right Active Flexion w/Knee Flexed 110 Internal Rotation 35 External Rotation 20 Left Active Flexion w/Knee Flexed 110 Internal Rotation 35 External Rotation 25 PT-OP-M Strength Start: 04/10/23 12:59 Freq: Status: Active Protocol: Document 05/19/23 11:53 AB (Rec: 05/19/23 14:17 AB [id number]) Hip Strength Hip Manual Muscle Testing Right Flexion (L2) 4+ Good+ Extension (S1) 4- Good- Abduction 4- Good- Adduction 4 Good External Rotation 4- Good- Internal Rotation 4 Good Left Flexion (L2) 4+ Good+ Extension (S1) 4- Good- Abduction 4- Good- Adduction 4 Good External Rotation 4 Good Internal Rotation 4 Good Knee Strength Knee Manual Muscle Testing Right Flexion (S2) 4+ Good+ Extension (L3) 5 Normal Left Flexion (S2) 4+ Good+ Extension (L3) 5 Normal PT-OP-Q Treatments Start: 04/10/23 12:59 Freq: Status: Active Protocol: Document 05/28/23 11:45 SW (Rec: 05/28/23 13:05 [id number]) Cardio Equipment Recumbent Stepper (Sci-Fit) Duration (Minutes) 5 Gym Equipment Shuttle Recovery SL press Details 37# (1 new) DL press Resistance 50# (2 new) Shuttle Recovery Platform Stable Reps/Time 2x15 Therapeutic Exercises Supine Exercises LTR Supine Exercise Name LTR feet together/ hip width Side bilateral Reps/Minutes 2 min Comments for hip and lumbar ROM Sitting Exercises Lateral side bend Side bilateral Equipment Used Argentine Ball Lumbar rotation Sitting Exercise Name Seated Lumbar rotation Side bilateral Reps/Minutes x 2 min Comments cues for compensation Standing Exercises Hip Extension Standing Exercise Name bilateral Resistance GTB Equipment Used @ rail Reps/Minutes 2 x 10 Crab walks Standing Exercise Name Lateral stepping Resistance BTB Reps/Minutes x 2 laps each Comments Good response, no increase in symptoms STS Standing Exercise Name STS from high/low plinth Equipment Used 2 x 10 Comments no UE support Other Exercises Hip IR/ER Other Exercise Name Hip mobility RLE on stool Side right Reps/Minutes 2 x 10 Step ups Other Exercise Name Step Ups Side bilateral Resistance 4# Equipment Used @ stairs Reps/Minutes x 10 ea Comments cues for gluteal activation, posture PT-OP-T Assessment and Plan Start: 04/10/23 12:59 Freq: Status: Active Protocol: Document 05/28/23 11:45 (Rec: 05/28/23 13:05 [id number]) Physical Therapy Assessment Goals Six Impairment Strength Short Term Goal (STG) Pt's gross LE MMT scores to improve to 4/5 or better to show improving muscular strength to improve ability to perform functional mobility and to decrease symptoms. STG Duration 4 External Grinder Tool Goal (LTG) Pt's gross LE MMT scores to improve to 4+/5 or better to show improving muscular strength to improve ability to perform functional mobility and to decrease symptoms. LTG Duration 6 Five Impairment AROM deficits Short Term Goal (STG) Pt's bilateral hip external rotation AROM to improve to 30 degrees or better to show show improving mobility to improve ability to perform ADLs and IADLs, and to improve gait mechanics. STG Duration 4 External Grinder Tool Goal (LTG) Pt's bilateral hip external rotation AROM to improve to 35 degrees or better to show show improving mobility to improve ability to perform ADLs and IADLs, and to improve gait mechanics. LTG Duration 6 Four Impairment AROM deficits Short Term Goal (STG) Pt's bilateral hip internal rotation AROM to improve to 40 degrees or better to show show improving mobility to improve ability to perform ADLs and IADLs and to improve gait mechanics. STG Duration 4 Care Home Goal (LTG) Pt's bilateral hip internal rotation AROM to improve to 45 degrees or better to show show improving mobility to improve ability to perform ADLs and IADLs and to improve gait mechanics. LTG Duration 6 Three Impairment AROM deficits Short Term Goal (STG) Pt's lumbar spine bilateral rotation AROM to improve to 35 degrees with minimal to no pain to show improving mobility to improve ability to perform ADLs and IADLs. STG Duration 4 External Grinder Tool Goal (LTG) Pt's lumbar spine bilateral rotation AROM to improve to 40 degrees with minimal to no pain to show improving mobility to improve ability to perform ADLs and IADLs. LTG Duration 6 Two Impairment AROM deficits Short Term Goal (STG) Pt's lumbar spine bilateral lateral flexion (side bending) AROM to improve to superior patella with minimal to no pain to show improving mobility to improve ability to perform ADLs and IADLs. STG Duration 4 Care Home Goal (LTG) Pt's lumbar spine bilateral lateral flexion (side bending) AROM to improve to mid joint line with minimal to no pain to show improving mobility to improve ability to perform ADLs and IADLs. LTG Duration 6 One Impairment AROM deficits Short Term Goal (STG) Pt's lumbar spine flexion AROM to improve to distal shins with minimal to no pain to show improving mobility to improve ability to perform ADLs and IADLs. STG Duration 4 Care Home Goal (LTG) Pt's lumbar spine flexion AROM to improve to ankles with minimal to no pain to show improving mobility to improve ability to perform ADLs and IADLs. LTG Duration 6 Assessment Summary Assessment Focused on standing LE strengthening today, improved tolerance with minimal increase in symptoms throughout session. Pt reported fatigue post session. Plan to assess pt tolerance next session and progress as able. Physical Therapy Plan Frequency and Duration Frequency of Treatment 2x/Week Duration of treatment (weeks) 6 Plan of Care Start Date 05/19/23 Plan of Care End Date 06/30/23 Therapeutic Interventions Therapeutic Interventions Balance Training,Gait Training ,Home Exercise Program,Joint Mobilizations,Manual Therapy, Neuromuscular Re-education, Patient/Caregiver Education, Self-Care/Home Management,Soft Tissue Mobilization,Taping, Therapeutic Activities, Therapeutic Exercises Next Visit Focus/Plan Next Note Type Treatment Note Next Visit Plan Add core and LE strength and mobility exercises as tolerated.
--- NOTE | 2023-06-02 14:06 | PT.OTN ---
Current Diagnoses Cerebral infarction, unspecified (06/02/23) Physical Therapy Treatment Note PT-OP-A Visit Information Start: 04/10/23 12:59 Freq: Status: Active Protocol: Document 06/02/23 11:58 AB (Rec: 06/02/23 14:06 AB [id number]) Out-Patient Physical Therapy Visit Information Visit Information Visit Type Treatment Note Visit Start Time 11:48 Visit Stop Time 12:30 Total Visit Minutes 42 Visit Number 13 Evaluation Information Evaluation Date 04/10/23 PT-OP-B Current Condition Start: 04/10/23 12:59 Freq: Status: Active Protocol: Document 05/19/23 11:53 AB (Rec: 05/19/23 14:17 AB [id number]) Current Condition History of Current Condition Onset Date Chronic Current Complaints right low back/hip pain 8/10 at worst, 0-1/10 History of Current Condition The pt reports he sufferred a stroke on 02/27/23, which caused some right sided weakness, though he states these have resolved mostly, 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 He states went to [facility], but he states they did nothing for him. [Chart reiview actually shows he was d/c to [facility] for additional rehab.] The pt reports history of right low back/hip pain that goes down his leg, which began years ago . This pain inhibits his ability to stand or walk for prolonged periods, and he endorses N/T in RLE occassionally. He reports he got a shot in his back to help his symptoms but it didn't help, but then he tried a second which relieved symptoms 80-90% for about 6-8 weeks, however he then sufferred a stroke and wasn't able to continue with his treatment. He also reports hx of bilateral CHUCK. The pt presents with SPC, though he reports he doesn't use it much when he is on his own. He also states he has a FWW which he uses in he mornings to get going. Prior Treatments and Tests Cortisone injections? Treatment Goals Patient/Caregiver Goals To help improve his symptoms PT-OP-C Subjective Start: 04/10/23 12:59 Freq: Status: Active Protocol: Document 06/02/23 11:58 AB (Rec: 06/02/23 14:06 AB [id number]) OP-PT Subjective Patient Comments Patient Comments The pt reports no significant change in his symptoms. He states he will be receiving injection next week on Friday . PT-OP-G Mobility & Gait Start: 04/10/23 12:59 Freq: Status: Active Protocol: Document 04/10/23 12:59 AB (Rec: 04/10/23 14:54 AB [id number]) OP Gait Assessment Gait Gait Assistance Required: Independent Assistive Devices Assistive Device None,Straight Cane Gait Deviations General Gait Pattern Decreased Stride Length, Decreased Feet Clearance, Flexed Trunk Factors Limiting Gait Function Factors Limiting Gait Function Decreased Activity Tolerance, Decreased Strength,Limited Range of Motion,Pain Comments Gait Comments The pt lakcs heel-toe pattern, though it is not shuffling. Decreased hip flexion and extension limit his step length PT-OP-K Range of Motion Start: 04/10/23 12:59 Freq: Status: Active Protocol: Document 05/19/23 11:53 AB (Rec: 05/19/23 14:17 AB [id number]) Lumbar Spine Range of Motion Lumbar Spine Active Degrees Testing Position Standing Extension 10 Rotation Left 30 Rotation Right 30 Comments flexion: mid shins SB: distal thigh bilaterally Reproduction of symptoms with flexion, bilateral SB and rotation to R; all on right low back (no change from initial eval) Hip Goniometric Range of Motion Hip Right Active Flexion w/Knee Flexed 110 Internal Rotation 35 External Rotation 20 Left Active Flexion w/Knee Flexed 110 Internal Rotation 35 External Rotation 25 PT-OP-M Strength Start: 04/10/23 12:59 Freq: Status: Active Protocol: Document 05/19/23 11:53 AB (Rec: 05/19/23 14:17 AB [id number]) Hip Strength Hip Manual Muscle Testing Right Flexion (L2) 4+ Good+ Extension (S1) 4- Good- Abduction 4- Good- Adduction 4 Good External Rotation 4- Good- Internal Rotation 4 Good Left Flexion (L2) 4+ Good+ Extension (S1) 4- Good- Abduction 4- Good- Adduction 4 Good External Rotation 4 Good Internal Rotation 4 Good Knee Strength Knee Manual Muscle Testing Right Flexion (S2) 4+ Good+ Extension (L3) 5 Normal Left Flexion (S2) 4+ Good+ Extension (L3) 5 Normal PT-OP-Q Treatments Start: 04/10/23 12:59 Freq: Status: Active Protocol: Document 06/02/23 11:58 AB (Rec: 06/02/23 14:06 AB [id number]) Cardio Equipment Recumbent Elliptical (Biodex) Duration (Minutes) 6 Resistance 3 Therapeutic Exercises Standing Exercises Hip Extension Standing Exercise Name bilateral Resistance GTB Equipment Used @ rail Reps/Minutes 2 x 10 Crab walks Standing Exercise Name Lateral stepping Resistance BTB Reps/Minutes x 2 laps each STS Standing Exercise Name STS from chair Equipment Used 2 x 10 Comments hands on thighs Other Exercises Hip IR/ER Other Exercise Name Hip mobility RLE on stool Side right Reps/Minutes 2 x 10 Self-Care/Home Management Treatment Education Patient Education Home Exercise Program,Pain Management PT-OP-T Assessment and Plan Start: 04/10/23 12:59 Freq: Status: Active Protocol: Document 06/02/23 11:58 AB (Rec: 06/02/23 14:06 AB [id number]) Physical Therapy Assessment Goals Six Impairment Strength Short Term Goal (STG) Pt's gross LE MMT scores to improve to 4/5 or better to show improving muscular strength to improve ability to perform functional mobility and to decrease symptoms. STG Duration 4 Mingle Operator Goal (LTG) Pt's gross LE MMT scores to improve to 4+/5 or better to show improving muscular strength to improve ability to perform functional mobility and to decrease symptoms. LTG Duration 6 Five Impairment AROM deficits Short Term Goal (STG) Pt's bilateral hip external rotation AROM to improve to 30 degrees or better to show show improving mobility to improve ability to perform ADLs and IADLs, and to improve gait mechanics. STG Duration 4 Fpc Goal (LTG) Pt's bilateral hip external rotation AROM to improve to 35 degrees or better to show show improving mobility to improve ability to perform ADLs and IADLs, and to improve gait mechanics. LTG Duration 6 Four Impairment AROM deficits Short Term Goal (STG) Pt's bilateral hip internal rotation AROM to improve to 40 degrees or better to show show improving mobility to improve ability to perform ADLs and IADLs and to improve gait mechanics. STG Duration 4 Fpc Goal (LTG) Pt's bilateral hip internal rotation AROM to improve to 45 degrees or better to show show improving mobility to improve ability to perform ADLs and IADLs and to improve gait mechanics. LTG Duration 6 Three Impairment AROM deficits Short Term Goal (STG) Pt's lumbar spine bilateral rotation AROM to improve to 35 degrees with minimal to no pain to show improving mobility to improve ability to perform ADLs and IADLs. STG Duration 4 Mingle Operator Goal (LTG) Pt's lumbar spine bilateral rotation AROM to improve to 40 degrees with minimal to no pain to show improving mobility to improve ability to perform ADLs and IADLs. LTG Duration 6 Two Impairment AROM deficits Short Term Goal (STG) Pt's lumbar spine bilateral lateral flexion (side bending) AROM to improve to superior patella with minimal to no pain to show improving mobility to improve ability to perform ADLs and IADLs. STG Duration 4 Mingle Operator Goal (LTG) Pt's lumbar spine bilateral lateral flexion (side bending) AROM to improve to mid joint line with minimal to no pain to show improving mobility to improve ability to perform ADLs and IADLs. LTG Duration 6 One Impairment AROM deficits Short Term Goal (STG) Pt's lumbar spine flexion AROM to improve to distal shins with minimal to no pain to show improving mobility to improve ability to perform ADLs and IADLs. STG Duration 4 Fpc Goal (LTG) Pt's lumbar spine flexion AROM to improve to ankles with minimal to no pain to show improving mobility to improve ability to perform ADLs and IADLs. LTG Duration 6 Assessment Summary Assessment The pt had good tolerance of therex performed today, as he denied any symptoms throughout the session. The pt states he would like to take a break from PT and see how he responds to the injection before continuing. Therefore, PT will keep case open for a month before discharging if pt does not return. The pt and his were educated on the ability to return to PT before 06/30 (POC expires this day), otherwise he would require new referral to restart PT if he goes more than a month. without PT, with both verbalizing understanding.
--- NOTE | 2023-06-30 17:01 | PT.OPDS ---
Current Diagnoses Cerebral infarction, unspecified (06/02/23) Visit Care Team Role Provider Type Iliana Saravia PA-C Family Provider Advanced [employer] Scoreboard Operator Primary Care Provider Specialty: Medical Address: [address] [place] [address], [place], [address] Email: Marlen Garibay MD Attending Provider Physician Referring Provider Specialty: Internal Medicine Address: [place], [address] Email: Visit Number Visit Number 13 Discharge Summary PT-OP-B Current Condition Start: 04/10/23 12:59 Freq: Status: Active Protocol: Document 05/19/23 11:53 AB (Rec: 05/19/23 14:17 AB [id number]) Current Condition History of Current Condition Onset Date Chronic Current Complaints right low back/hip pain 8/10 at worst, 0-1/10 History of Current Condition The pt reports he sufferred a stroke on 02/27/23, which caused some right sided weakness, though he states these have resolved mostly, 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 He states went to [facility], but he states they did nothing for him. [Chart reiview actually shows he was d/c to [facility] for additional rehab.] The pt reports history of right low back/hip pain that goes down his leg, which began years ago . This pain inhibits his ability to stand or walk for prolonged periods, and he endorses N/T in RLE occassionally. He reports he got a shot in his back to help his symptoms but it didn't help, but then he tried a second which relieved symptoms 80-90% for about 6-8 weeks, however he then sufferred a stroke and wasn't able to continue with his treatment. He also reports hx of bilateral CHUCK. The pt presents with SPC, though he reports he doesn't use it much when he is on his own. He also states he has a FWW which he uses in he mornings to get going. Prior Treatments and Tests Cortisone injections? Treatment Goals Patient/Caregiver Goals To help improve his symptoms PT-OP-C Subjective Start: 04/10/23 12:59 Freq: Status: Active Protocol: Document 06/02/23 11:58 AB (Rec: 06/02/23 14:06 AB [id number]) OP-PT Subjective Patient Comments Patient Comments The pt reports no significant change in his symptoms. He states he will be receiving injection next week on Friday . PT-OP-G Mobility & Gait Start: 04/10/23 12:59 Freq: Status: Active Protocol: Document 04/10/23 12:59 AB (Rec: 04/10/23 14:54 AB [id number]) OP Gait Assessment Gait Gait Assistance Required: Independent Assistive Devices Assistive Device None,Straight Cane Gait Deviations General Gait Pattern Decreased Stride Length, Decreased Feet Clearance, Flexed Trunk Factors Limiting Gait Function Factors Limiting Gait Function Decreased Activity Tolerance, Decreased Strength,Limited Range of Motion,Pain Comments Gait Comments The pt lakcs heel-toe pattern, though it is not shuffling. Decreased hip flexion and extension limit his step length PT-OP-K Range of Motion Start: 04/10/23 12:59 Freq: Status: Active Protocol: Document 05/19/23 11:53 AB (Rec: 05/19/23 14:17 AB [id number]) Lumbar Spine Range of Motion Lumbar Spine Active Degrees Testing Position Standing Extension 10 Rotation Left 30 Rotation Right 30 Comments flexion: mid shins SB: distal thigh bilaterally Reproduction of symptoms with flexion, bilateral SB and rotation to R; all on right low back (no change from initial eval) Hip Goniometric Range of Motion Hip Right Active Flexion w/Knee Flexed 110 Internal Rotation 35 External Rotation 20 Left Active Flexion w/Knee Flexed 110 Internal Rotation 35 External Rotation 25 PT-OP-M Strength Start: 04/10/23 12:59 Freq: Status: Active Protocol: Document 05/19/23 11:53 AB (Rec: 05/19/23 14:17 AB [id number]) Hip Strength Hip Manual Muscle Testing Right Flexion (L2) 4+ Good+ Extension (S1) 4- Good- Abduction 4- Good- Adduction 4 Good External Rotation 4- Good- Internal Rotation 4 Good Left Flexion (L2) 4+ Good+ Extension (S1) 4- Good- Abduction 4- Good- Adduction 4 Good External Rotation 4 Good Internal Rotation 4 Good Knee Strength Knee Manual Muscle Testing Right Flexion (S2) 4+ Good+ Extension (L3) 5 Normal Left Flexion (S2) 4+ Good+ Extension (L3) 5 Normal PT-OP-T Assessment and Plan Start: 04/10/23 12:59 Freq: Status: Active Protocol: Document 06/30/23 16:59 AB (Rec: 06/30/23 17:01 AB [id number]) Physical Therapy Plan Discharge Physical Therapy Discharge Reasons Patient Request Discharge Comments PT called pt to check in, pt states his pain is feeling better after getting a cortisone injection. He does not want to return to PT at this time for a variety of reasons, including time, feeling better and feeling like PT didn't help much. PT will d/c pt's case.
== END 2023-07-02 10:17 | disposition home or self-care (01) ==
LOC: PHYS 11:45
PROVIDERS: Family Provider Physician Assistant; PCP Physician Assistant; Referring Provider Internal Medicine; Visit Provider Internal Medicine
DX: I63.9 Cerebral infarction, unspecified (principal)
CPT/HCPCS: 97110; 97116; 97140; 97161; 97535

== ENCOUNTER 2023-11-08 11:27 | Observation (INO) | payer MEDICARE, SELFPAY ==
[2023-11-08] VITALS (13 sets, daily range): BP systolic 125–173; BP diastolic 67–112; PULSE 72–82; RESP 13–23; TEMP 36.4–36.7; O2SAT 93–100; BMI 24.3
--- NOTE | 2023-11-08 12:17 | ED.EXTPRO ---
HPI - Extremity Problem <Marlena Karimi PA-C - Last Filed: 11/08/23 15:25> General Chief complaint: Extremity Problem,Nontraumatic Stated complaint: FT abnormally swollen T-3 Time Seen by Provider: 11/08/23 11:57 Source: patient Mode of arrival: Ambulatory History of Present Illness HPI Narrative: Patient is an 82-year-old male presenting for evaluation of swollen bilateral lower extremities x3 days. He has pertinent medical history of a stroke last February as well as new onset atrial fibrillation currently controlled with metoprolol and Eliquis. He denies normally having no lower extremity swelling, but noticed over the last 3 days that his legs are quite puffy. This swelling resolves when he elevates his legs, but will quickly returns once his legs are dependent. He denies any pain in his legs. He denies any chest pain or lightheadedness or sensation of palpitations. He does endorse a cough which has been present for several months and is not bothering him very much. He denies any difficulty with sleeping and states he does not have any trouble breathing or feel the need to sleep in a chair. Overall, he does endorse decreased activity levels after his stroke in February and significant fatigue. Related Data Home Medications Medication Instructions Recorded Confirmed atorvastatin 40 mg tablet (Lipitor) 40 mg PO BEDTIME #0 tabs 04/19/13 11/08/23 apixaban 5 mg tablet (Eliquis) 5 mg PO BID 11/08/23 11/08/23 metoprolol succinate 50 mg 50 mg PO DAILY 11/08/23 11/08/23 tablet,extended release 24 hr Allergies Allergy/AdvReac Type Severity Reaction Status Date / Time No Known Drug Allergies Allergy Verified 05/21/21 18:32 Review of Systems <Marlena Karimi PA-C - Last Filed: 11/08/23 15:25> Review of Systems Narrative: See HPI Patient History <Marlena Karimi PA-C - Last Filed: 11/08/23 15:25> Medical History (Updated 11/08/23 @ 18:20 by Jesus Hernandez MD) Afib Vascular dementia Stroke Hyperlipidemia Hypertension Surgical History (Updated 11/08/23 @ 18:28 by Jesus Hernandez MD) H/O bilateral hip replacements Social History household members: spouse Smoking Status: Never smoker Smoking Status: Never smoker alcohol intake frequency: 0-2 drinks per day Substance Use Type: does not use Exam <Marlena Karimi PA-C - Last Filed: 11/08/23 15:25> Initial Vital Signs Initial Vital Signs: Vital Signs Temperature 97.5 F L 11/08/23 11:37 Pulse Rate 80 11/08/23 11:37 Respiratory Rate 18 11/08/23 11:37 Blood Pressure 145/67 H 11/08/23 11:37 Pulse Oximetry 97 11/08/23 11:37 Oxygen Delivery Method Room Air 11/08/23 11:37 GENERAL: 82 year old patient appears stated age. Well-developed patient, in no acute distress. HEAD: Atraumatic. Normocephalic. EYES: Pupils equal round and reactive. No injection or drainage. No scleral icterus. Extraocular movements intact bilaterally. NECK: Trachea midline. Non tender. CARDIOVASCULAR: Irregular rate and rhythm without murmurs RESPIRATORY: Clear to auscultation. Breath sounds equal bilaterally. No wheezes, rales, or rhonchi. EXTREMITIES: Bilateral 1+ pitting edema beginning just below patient's knees and extending distally to ankles and dorsal feet, posterior tibialis pulses 2+ bilaterally, skin overlying extremities has a dusky color, decreased capillary refill time. Bilateral extremities warm to the touch, patient moves toes and feet appropriately. Bilateral great toenails appear thick and yellowed. NEURO: AOx3. SKIN: See extremity <Samir Ang MD - Last Filed: 11/08/23 19:02> Initial Vital Signs Initial Vital Signs: Vital Signs Temperature 97.5 F L 11/08/23 11:37 Pulse Rate 80 11/08/23 11:37 Respiratory Rate 18 11/08/23 11:37 Blood Pressure 145/67 H 11/08/23 11:37 Pulse Oximetry 97 11/08/23 11:37 Oxygen Delivery Method Room Air 11/08/23 11:37 Course <Marlena Karimi PA-C - Last Filed: 11/08/23 15:25> Orders Ordered: ED Orders 11/08/23 12:16 CXR [XR chest 2V] Stat 11/08/23 12:27 BNP [NT-proBNP (BNP-Adult 18+)] Stat CBC Auto Diff [Complete Blood Count AUTO DIFF] Stat CMP [Comprehensive Metabolic Panel] Stat Trop I [Troponin I] Stat 11/08/23 12:31 EKG-12 Lead Stat 11/08/23 14:33 Trop I [Troponin I] Stat Apixaban (Apixaban 5 Mg Tablet) 5 mg PO BID [facility] [place] Atorvastatin Calcium (Atorvastatin 20 Mg Tablet) 40 mg PO BEDTIME [facility] Metoprolol Succinate (Metoprolol Er 50 Mg Tablet) 50 mg PO DAILY [facility] Naloxone HCl (Naloxone 0.4 Mg/Ml Vial) 0.2 mg IV Q2MIN PRN PRN Reason: Opiate Reversal Vital Signs Vital signs: Vital Signs - 8 hr 11/08/23 11:37 11/08/23 13:51 11/08/23 15:16 Temperature 97.5 F L 97.7 F Pulse Rate 80 72 82 Respiratory Rate 18 16 16 Blood Pressure 145/67 H 125/78 146/92 H Pulse Oximetry 97 99 98 Oxygen Delivery Method Room Air Room Air Room Air 11/08/23 15:45 11/08/23 16:00 11/08/23 16:15 Temperature Pulse Rate 80 77 75 Respiratory Rate 22 13 20 Blood Pressure 160/87 H 150/98 H 173/84 H Pulse Oximetry 98 100 99 Oxygen Delivery Method Room Air 11/08/23 16:30 11/08/23 16:44 11/08/23 16:45 Temperature Pulse Rate 74 79 Respiratory Rate 22 18 Blood Pressure 149/82 H 147/94 H Pulse Oximetry 99 98 Oxygen Delivery Method 11/08/23 16:45 11/08/23 17:00 11/08/23 17:16 Temperature Pulse Rate 75 74 80 Respiratory Rate 20 20 23 Blood Pressure Pulse Oximetry 98 98 93 Oxygen Delivery Method 11/08/23 17:16 Temperature Pulse Rate Respiratory Rate Blood Pressure 155/112 H Pulse Oximetry Oxygen Delivery Method <Samir Ang MD - Last Filed: 11/08/23 19:02> Orders Ordered: ED Orders 11/08/23 12:16 CXR [XR chest 2V] Stat 11/08/23 12:27 BNP [NT-proBNP (BNP-Adult 18+)] Stat CBC Auto Diff [Complete Blood Count AUTO DIFF] Stat CMP [Comprehensive Metabolic Panel] Stat Trop I [Troponin I] Stat 11/08/23 12:31 EKG-12 Lead Stat 11/08/23 14:33 Trop I [Troponin I] Stat Apixaban (Apixaban 5 Mg Tablet) 5 mg PO BID [facility] Atorvastatin Calcium (Atorvastatin 20 Mg Tablet) 40 mg PO BEDTIME [facility] Metoprolol Succinate (Metoprolol Er 50 Mg Tablet) 50 mg PO DAILY [facility] Naloxone HCl (Naloxone 0.4 Mg/Ml Vial) 0.2 mg IV Q2MIN PRN PRN Reason: Opiate Reversal Reevaluation(s) Reevaluation #1: After initial evaluation by the mid-level provider, I evaluated the patient in light of his elevated troponin. Troponin is mildly elevated, on repeat it is actually trending upward. Patient's concern today is related to bilateral lower extremity swelling without pain. He is on Eliquis he is on metoprolol he is on Lipitor, he has a history of stroke in atrial fibrillation he has not aware of any history of heart failure or coronary disease. He has not endorsing chest pain or shortness of breath recently or today. On exam, he has in no distress his lungs are clear he does have atrial fibrillation with an irregular irregular rhythm with a controlled rate. He has not overly hypertensive and he does not have an oxygen requirement. I reviewed his EKG which shows atrial fibrillation and no ischemic changes Consultations Consultation #1: Case discussed with hospitalist Dr. Hernandez, accepts admission Vital Signs Vital signs: Vital Signs - 8 hr 11/08/23 11:37 11/08/23 13:51 11/08/23 15:16 Temperature 97.5 F L 97.7 F Pulse Rate 80 72 82 Respiratory Rate 18 16 16 Blood Pressure 145/67 H 125/78 146/92 H Pulse Oximetry 97 99 98 Oxygen Delivery Method Room Air Room Air Room Air 11/08/23 15:45 11/08/23 16:00 11/08/23 16:15 Temperature Pulse Rate 80 77 75 Respiratory Rate 22 13 20 Blood Pressure 160/87 H 150/98 H 173/84 H Pulse Oximetry 98 100 99 Oxygen Delivery Method Room Air 11/08/23 16:30 11/08/23 16:44 11/08/23 16:45 Temperature Pulse Rate 74 79 Respiratory Rate 22 18 Blood Pressure 149/82 H 147/94 H Pulse Oximetry 99 98 Oxygen Delivery Method 11/08/23 16:45 11/08/23 17:00 11/08/23 17:16 Temperature Pulse Rate 75 74 80 Respiratory Rate 20 20 23 Blood Pressure Pulse Oximetry 98 98 93 Oxygen Delivery Method 11/08/23 17:16 Temperature Pulse Rate Respiratory Rate Blood Pressure 155/112 H Pulse Oximetry Oxygen Delivery Method MDM - Extremity (Nontraumatic) <Marlena Karimi PA-C - Last Filed: 11/08/23 15:25> Lab Data 11/08/23 12:27 11/08/23 12:27 Labs: Lab Results 11/08/23 11/08/23 Range/Units 12:27 14:33 WBC 5.9 (4.5-11.0) X10^3/uL RBC 4.01 L (4.5-5.9) X10^6/uL Hgb 14.1 (13.5-17.5) g/dL Hct 42.3 (41-53) % MCV 105.3 H (80-100) fL MCH 35.1 H (26-34) PG MCHC 33.4 (30-36) % RDW 13.7 (11.6-14.8) % Plt Count 130 L (150-400) X10^3/uL Neut % (Auto) 69.8 (50-75) % Lymph % (Auto) 16.5 L (25-40) % [place] % (Auto) 10.2 (3-14) % Eos % (Auto) 3.1 (2-4) % Baso % (Auto) 0.4 (0-2) % Neut # (Auto) 4100 (2096-2643) /uL Lymph # (Auto) 1000 L (7748-8019) /uL [place] # (Auto) 600 (0-900) /uL Eos # (Auto) 200 (0-450) /uL Baso # (Auto) 0 (0-100) /uL Sodium 138 (137-145) mmol/L Potassium 4.5 (3.4-5.1) mmol/L Chloride 110 H (98-107) mmol/L Carbon Dioxide 25 (22-32) mmol/L BUN 23 H (9-20) mg/dL Creatinine 0.75 (0.66-1.25) mg/dL Estimated GFR > 60 (>60) mL/min BUN/Creatinine Ratio 30.7 H (6-22) Glucose 101 (80-110) mg/dL Calcium 8.8 (8.4-10.2) mg/dL Total Bilirubin 2.1 H (0.2-1.3) mg/dL AST 53 (17-59) IU/L ALT 73 H (<50) IU/L Alkaline Phosphatase 119 (38-126) U/L Troponin I 0.037 H 0.040 H (0.01-0.034) ng/mL NT-Pro-B Natriuret Pep 3000 H (<450) pg/mL Total Protein 6.4 (6.3-8.2) g/dL Albumin 3.5 (3.5-5.0) g/dL Globulin 2.9 (1.7-4.1) g/dL Albumin/Globulin Ratio 1.2 (1.0-2.8) Imaging Data Chest x-ray: Radiologist's Impression: PROCEDURE: XR CHEST 2V INDICATIONS: Swollen LE x 3 days TECHNIQUE: 2 views of the chest were acquired. COMPARISON: [facility], , XR CHEST 2V, 07/17/2021, 12:36. FINDINGS: Surgical changes and devices: None. Lungs and pleura: There is mild pulmonary vascular congestion. No definite focal infiltrate. No pleural effusions or pneumothorax. Mediastinum: Mediastinal contours are normal. Heart size is enlarged. Bones and chest wall: No suspicious bony abnormalities. Soft tissues appear unremarkable. IMPRESSION: Cardiomegaly and mild congestion. No definite focal infiltrate. No pleural effusion or pneumothorax. Dictated by: Chad Wilkinson M.D. on 11/08/2023 at 13:26 Approved by: Chad Wilkinson M.D. on 11/08/2023 at 13:27 ECG Data Interpretation: EKG shows atrial fibrillation with ventricular rate 72, no T-wave inversions or ST elevations noted. No significant changes compared to EKG from 02/27/23 MDM Narrative Medical decision making narrative: Patient is an 82-year-old male presenting for evaluation of bilateral lower extremity swelling noticed x3 days. He has significant history of a stroke and new onset AFib in February 2023. He denies any chest pain or shortness of breath or lightheadedness today he denies any pain in his bilateral lower extremities, but is concerned about the new onset of swelling he noticed 3 days ago. Physical exam does show 1+ pitting edema bilaterally starting below bilateral knees and extending distally into patient's feet, skin does have a dusky color consistent with possible PAD Multiple etiologies for patient's symptoms considered including, but not limited to: Chronic venous insufficiency, PAD, CHF, CAD, suspicion for DVT is low as patient is experiencing no pain and swelling is bilateral and equal Prior Charts reviewed: ER note 02/27/2023 regarding stroke and AFib EKG shows atrial fibrillation with no ST elevation or T-wave inversion, rate is 72. Labs reviewed and interpreted by myself: CBC, CMP, BNP, Troponin Labs show microcytic anemia 105.3, slightly elevated troponin at 0.037 and significantly elevated BNP at 3000, ALT is elevated at 72. [address] Ang, we will order 2 hour troponin. Ultrasound to rule out DVT unnecessary since patient is anticoagulated on Eliquis. 1510 troponin returned elevated at 0.04, discussed with Dr. Ang and patient will be moved to the main emergency department for consistent cardiac monitoring and to consider admission Imaging reviewed: CXR shows cardiomegaly and pulmonary vascular congestion Findings and diagnosis discussed with patient/family followed by verbalization of understanding. 1520 Patient has been moved over to the main ED. <Samir Ang MD - Last Filed: 11/08/23 19:02> Lab Data Lab results narrative: Troponin is minimally elevated and up trending, proBNP is elevated at 3000 Labs: Lab Results 11/08/23 11/08/23 Range/Units 12:27 14:33 WBC 5.9 (4.5-11.0) X10^3/uL RBC 4.01 L (4.5-5.9) X10^6/uL Hgb 14.1 (13.5-17.5) g/dL Hct 42.3 (41-53) % MCV 105.3 H (80-100) fL MCH 35.1 H (26-34) PG MCHC 33.4 (30-36) % RDW 13.7 (11.6-14.8) % Plt Count 130 L (150-400) X10^3/uL Neut % (Auto) 69.8 (50-75) % Lymph % (Auto) 16.5 L (25-40) % [place] % (Auto) 10.2 (3-14) % Eos % (Auto) 3.1 (2-4) % Baso % (Auto) 0.4 (0-2) % Neut # (Auto) 4100 (2035-1330) /uL Lymph # (Auto) 1000 L (7862-6974) /uL [place] # (Auto) 600 (0-900) /uL Eos # (Auto) 200 (0-450) /uL Baso # (Auto) 0 (0-100) /uL Sodium 138 (137-145) mmol/L Potassium 4.5 (3.4-5.1) mmol/L Chloride 110 H (98-107) mmol/L Carbon Dioxide 25 (22-32) mmol/L BUN 23 H (9-20) mg/dL Creatinine 0.75 (0.66-1.25) mg/dL Estimated GFR > 60 (>60) mL/min BUN/Creatinine Ratio 30.7 H (6-22) Glucose 101 (80-110) mg/dL Calcium 8.8 (8.4-10.2) mg/dL Total Bilirubin 2.1 H (0.2-1.3) mg/dL AST 53 (17-59) IU/L ALT 73 H (<50) IU/L Alkaline Phosphatase 119 (38-126) U/L Troponin I 0.037 H 0.040 H (0.01-0.034) ng/mL NT-Pro-B Natriuret Pep 3000 H (<450) pg/mL Total Protein 6.4 (6.3-8.2) g/dL Albumin 3.5 (3.5-5.0) g/dL Globulin 2.9 (1.7-4.1) g/dL Albumin/Globulin Ratio 1.2 (1.0-2.8) Discharge Plan Departure Patient Disposition: Admitted as Observation Clinical Impression: Elevated troponin Heart failure Qualifiers: Heart failure type: unspecified Heart failure chronicity: unspecified Qualified Code(s): I50.9 - Heart failure, unspecified Admit Date/Time: 11/08/23 17:19 Admit Provider: Jesus Hernandez
[2023-11-08 12:38] LABS: Add Manual Diff / Slide Review NO; Basophils Absolute Auto 0 /uL (0-100); Basophils Percent Auto 0.4 % (0-2); Eosinophils Absolute Auto 200 /uL (0-450); Eosinophils Percent Auto 3.1 % (2-4); Hematocrit 42.3 % (41-53); Hemoglobin 14.1 g/dL (13.5-17.5); Lymphocytes Absolute Auto 1000 /uL (1100-4500); Lymphocytes Percent Auto 16.5 % (25-40); Mean Corpuscular HGB Conc 33.4 % (30-36); Mean Corpuscular Hemoglobin 35.1 PG (26-34); Mean Corpuscular Volume 105.3 fL (80-100); Monocytes Absolute Auto 600 /uL (0-900); Monocytes Percent Auto 10.2 % (3-14); Neutrophils Absolute Auto 4100 /uL (1500-7000); Neutrophils Percent Auto 69.8 % (50-75); Platelet Count 130 X10^3/uL (150-400); Red Blood Cell Count 4.01 X10^6/uL (4.5-5.9); Red Cell Distribution Width 13.7 % (11.6-14.8); White Blood Cell Count 5.9 X10^3/uL (4.5-11.0)
[2023-11-08 12:50] LABS: Alanine Aminotransferase 73 IU/L (<50); Albumin 3.5 g/dL (3.5-5.0); Albumin Globulin Ratio 1.2 (1.0-2.8); Alkaline Phosphatase 119 U/L (38-126); Aspartate Aminotransferase 53 IU/L (17-59); BUN Creatinine Ratio 30.7 (6-22); Bilirubin Total 2.1 mg/dL (0.2-1.3); Blood Urea Nitrogen 23 mg/dL (9-20); Calcium 8.8 mg/dL (8.4-10.2); Carbon Dioxide 25 mmol/L (22-32); Chloride 110 mmol/L (98-107); Estimated Glomerular Filt Rate > 60 mL/min (>60); Globulin 2.9 g/dL (1.7-4.1); Glucose 101 mg/dL (80-110); HEMOLYSIS < 15 (0-50); Potassium 4.5 mmol/L (3.4-5.1); Sodium 138 mmol/L (137-145); Total Protein 6.4 g/dL (6.3-8.2)
[2023-11-08 13:02] LABS: NT-proBNP (BNP-Adult 18+) 3000 pg/mL (<450); Troponin I 0.037 ng/mL (0.01-0.034)
--- NOTE | 2023-11-08 18:05 | P.HP_ITS ---
History of Present Illness History of Present Illness Date Patient Seen: 11/08/23 Time Patient Seen: 18:05 Chief complaint: FT abnormally swollen T-3 Narrative: This is an 82-year-old male with 2 days of peripheral edema. He has a history of a stroke in 2022 which affected his memory. He is on blood pressure medicine and has atrial fibrillation. In the ED his EKG showed no acute ST or T-wave changes. His troponins were 0.37 and 0.40. His chest x-ray was read as showing mild congestion. The BNP was 3,000. He has had no chest pain and does not have any shortness of breath. [facility] Medical History (Updated 11/08/23 @ 18:20 by Jesus Hernandez MD) Afib Vascular dementia Stroke Hyperlipidemia Hypertension Surgical History (Updated 11/08/23 @ 18:28 by Jesus Hernandez MD) H/O bilateral hip replacements Social History household members: spouse Smoking Status: Never smoker Meds Home Medications and Allergies Home Medications Medication Instructions Recorded Confirmed Type atorvastatin 40 mg tablet (Lipitor) 40 mg PO BEDTIME #0 tabs 04/19/13 11/08/23 History apixaban 5 mg tablet (Eliquis) 5 mg PO BID 11/08/23 11/08/23 History metoprolol succinate 50 mg 50 mg PO DAILY 11/08/23 11/08/23 History tablet,extended release 24 hr Allergies Allergy/AdvReac Type Severity Reaction Status Date / Time No Known Drug Allergies Allergy Verified 05/21/21 18:32 Review of Systems Review of Systems Narrative: Positive for peripheral edema. Negative for chest pain, shortness for breath, nausea, vomiting, abdominal pain, bleeding, rashes, hematuria, joint pain, headaches, sore throat, new allergies. Exam Vital Signs (past 8 hours): - 11/08/23 11:37 11/08/23 13:51 11/08/23 15:16 Temperature 97.5 F L 97.7 F Pulse Rate 80 72 82 Respiratory Rate 18 16 16 Blood Pressure 145/67 H 125/78 146/92 H Pulse Oximetry 97 99 98 Oxygen Delivery Method Room Air Room Air Room Air 11/08/23 15:45 11/08/23 16:00 11/08/23 16:15 Temperature Pulse Rate 80 77 75 Respiratory Rate 22 13 20 Blood Pressure 160/87 H 150/98 H 173/84 H Pulse Oximetry 98 100 99 Oxygen Delivery Method Room Air 11/08/23 16:30 11/08/23 16:44 11/08/23 16:45 Temperature Pulse Rate 74 79 Respiratory Rate 22 18 Blood Pressure 149/82 H 147/94 H Pulse Oximetry 99 98 Oxygen Delivery Method 11/08/23 16:45 11/08/23 17:00 11/08/23 17:16 Temperature Pulse Rate 75 74 80 Respiratory Rate 20 20 23 Blood Pressure Pulse Oximetry 98 98 93 Oxygen Delivery Method 11/08/23 17:16 Temperature Pulse Rate Respiratory Rate Blood Pressure 155/112 H Pulse Oximetry Oxygen Delivery Method Oxygen Delivery Method Room Air Narrative Exam Narrative: Alert and oriented x3 but easily confused and distracted. No apparent distress Pupils are equally round and reactive to light and accommodation. Extraocular muscles are intact. Sclerae are pink and nonicteric. Throat looks normal but there is brownish pigmentation on the top of the tongue and purplish spots underneath the tongue. No lymph nodes are felt head, neck, supraclavicular area. No thyromegaly is present. No carotid bruits are heard. JVD is less than 6 cm. Heart is irregularly irregular without murmur. Lungs are clear to auscultation bilaterally. Abdomen is soft, bowel sounds positive, nontender, no organomegaly. extremities have trace bilateral pitting ankle edema. Skin has no rash or jaundice. Neuro exam: Cranial nerves 2-12 test intact. There is no tremor. Motor function is 5/5 throughout. Patient is a poor historian consistent with mild vascular dementia. Objective Labs 11/08/23 12:27 11/08/23 12:27 Labs: Laboratory Results - last 24 hr 11/08/23 11/08/23 12:27 14:33 WBC 5.9 RBC 4.01 L Hgb 14.1 Hct 42.3 MCV 105.3 H MCH 35.1 H MCHC 33.4 RDW 13.7 Plt Count 130 L Neut % (Auto) 69.8 Lymph % (Auto) 16.5 L [place] % (Auto) 10.2 Eos % (Auto) 3.1 Baso % (Auto) 0.4 Neut # (Auto) 4100 Lymph # (Auto) 1000 L [place] # (Auto) 600 Eos # (Auto) 200 Baso # (Auto) 0 Sodium 138 Potassium 4.5 Chloride 110 H Carbon Dioxide 25 BUN 23 H Creatinine 0.75 Estimated GFR > 60 BUN/Creatinine Ratio 30.7 H Glucose 101 Calcium 8.8 Total Bilirubin 2.1 H AST 53 ALT 73 H Alkaline Phosphatase 119 Troponin I 0.037 H 0.040 H NT-Pro-B Natriuret Pep 3000 H Total Protein 6.4 Albumin 3.5 Globulin 2.9 Albumin/Globulin Ratio 1.2 Assessment & Plan Assessment & Plan narrative: This is an 82-year-old male with 2 days of peripheral edema. He has a history of a stroke in 2022 which affected his memory. He is on blood pressure medicine and has atrial fibrillation. In the ED his EKG showed no acute ST or T-wave changes. His troponins were 0.37 and 0.40. His chest x-ray was read as showing mild congestion. The BNP was 3,000. He has had no chest pain and does not have any shortness of breath. Elevated Troponin -troponin checked on the basis of new edema complaint. He had no shortness of breath or chest pain. -trend troponin and obtain echocardiogram -continue metoprolol and Atorvastatin -EKG shows baseline atrial fibrillation without acute ST or T-wave changes Peripheral Edema -no indication for diuresis despite complaint of edema and chest x-ray report of congestion. -the edema is minimal and the chest x-ray looks very close to normal. -repeat BNP in the morning, obtain echocardiogram for clarification. Vascular Dementia -this appears to be mild and stable at baseline. Atrial Fibrillation -continue metoprolol and Eliquis. Continue Eliquis for DVT prevention His is his backup decision maker.
--- NOTE | 2023-11-08 18:17 | DI.ECHO.S_ITS ---
[facility] +---------+ : : [address] : : : : [id number] : : : : Phone: [phone]+ Echocardiogram Report + + :Name: EDIS GAMBINO Study Date: 11/09/2023 Height: 70 in : :[facility] ReadingLocation: Weight: 170 lb : : Gender: Male BSA: 1.9 m2 : :: 1940 Age: 82 yrs BP: 117/74 mmHg: :Reason For Study: CONGESTIVE HEART FAILURE : :Ordering Physician: CHINO, : :HELENE Segura Performed By: Angélica Baca : :Referring: HELENE MAGANA : + + Interpretation Summary The patient was in atrial fibrillation with heart rates between 65-84 bpm during the exam. The left ventricle is normal in size. There is moderate asymmetric left ventricular hypertrophy. There is no echo evidence for significant left ventricular outflow tract obstruction. Left ventricular ejection fraction is estimated to be 50 +/- 5%. The interventricular septum is flattened, consistent with a right ventricular pressure/volume condition. The right ventricle is mildly dilated. Right ventricular systolic function is mildly reduced. Both atria are severely dilated. There is moderate mitral regurgitation. There is mild aortic stenosis. The tricuspid annulus is dilated. There is moderate tricuspid regurgitation. The right ventricular systolic pressure is estimated to be at least 38 mmHg based on an estimated right atrial pressure of 8 mm Hg. Mild atherosclerotic plaque(s) in the aortic arch. The aortic root is mildly dilated. Procedure: A two-dimensional transthoracic echocardiogram with color flow and Doppler was performed. The study quality was technically adequate. There is no prior echocardiogram noted for this patient. The patient was in atrial fibrillation with heart rates between 65-84 bpm during the exam. Left Ventricle: The left ventricle is normal in size. There is moderate asymmetric left ventricular hypertrophy. There is no echo evidence for significant left ventricular outflow tract obstruction. There is no thrombus. Left ventricular ejection fraction is estimated to be 50 +/- 5%. The interventricular septum is flattened, consistent with a right ventricular pressure/volume condition. Diastolic function could not be accurately assessed due to atrial fibrillation. Right Ventricle: The right ventricle is mildly dilated. Right ventricular systolic function is mildly reduced. Atria: The left atrium is severely dilated. Both atria are severely dilated. The right atrium is severely dilated. There is no Doppler evidence for an interatrial shunt. Mitral Valve: There is mild mitral annular calcification. The mitral valve leaflets are mildly calcified. The mitral valve leaflets appear mildly thickened, but open well. There is moderate mitral regurgitation. Aortic Valve: The aortic valve is moderately calcified. There is discrete nodular thickening of the non- coronary cusp. There is moderate aortic valve sclerosis. There is mildly reduced leaflet mobility. The peak aortic velocity is 1.4 m/sec. The aortic valve mean gradient is 4 mmHg. The calculated aortic valve area is 1.7 cm2. There is mild aortic stenosis. There is no hemodynamically significant valvular aortic stenosis. There is mild aortic regurgitation. Tricuspid Valve: The tricuspid annulus is dilated. There is moderate tricuspid regurgitation. The right ventricular systolic pressure is estimated to be at least 38 mmHg based on an estimated right atrial pressure of 8 mm Hg. Pulmonic Valve: The pulmonic valve leaflets are thin and pliable; valve motion is normal. There is mild pulmonic regurgitation. Great Vessels: The aortic root is mildly dilated. The dimensions of the ascending aorta are normal. Mild atherosclerotic plaque(s) in the aortic arch. The IVC is of normal diameter and collapses less than 50% with a sniff. This suggests a right atrial pressure of 8 mm Hg. Pericardium/ Pleura There is no pericardial effusion. There is no pleural effusion. MMode/2D Measurements & Calculations LVIDd: 4.5 cm LVOT diam: 2.2 cm LVIDs: 3.3 cm Ao root diam: 4.3 cm FS: 26.8 % asc Aorta Diam: 3.5 cm IVSd: 1.5 cm Ao Arch Diam (Prox Trans): 2.5 cm LVPWd: 1.1 cm LV angulo. diameter/BSA (cm/m^2): 2.3 LV sys. diameter/BSA (cm/m^2): 1.7 LA A2 area: 28.6 cm2 RA long axis: 6.6 cm LA A4 area: 26.8 cm2 RA area: 27.0 cm2 LA length (vol): 6.1 cm RA vol: 93.1 ml LA vol: 106.4 ml RA : 47.8 ml/m2 LA vol index: 54.6 ml/m2 IVC diam: 2.3 cm RVD1 (basal): 4.6 cm RVD2 (mid): 4.3 cm TAPSE: 1.5 cm Doppler Measurements & Calculations Ao V2 max: 133.9 cm/sec LVOT Max Te: 61.7 cm/sec Ao V2 mean: 93.3 cm/sec LV V1 max P.5 mmHg Ao max P.5 mmHg LV V1 VTI: 12.8 cm Ao mean P.3 mmHg JOSEF(I,D): 2.1 cm2 Ao V2 VTI: 23.0 cm JOSEF(V,D): 1.7 cm2 sev ratio: 0.56 JOSEF indexed to BSA (cm^2/m^2): 1.1 MV E max te: 77.6 cm/sec TR max te: 268.5 cm/sec MV A max te: 0.74 cm/sec TR max P.6 mmHg MV E/A: 105.3 PA V2 max: 64.8 cm/sec Med Peak E' Te: 6.4 cm/sec PA V2 mean: 44.5 cm/sec E/E' med: 12.2 PA mean P.86 mmHg Lat Peak E' Te: 8.9 cm/sec PA pr(Accel): 49.5 mmHg E/E' lat: 8.7 E/e' average: 10.5 MV dec time: 0.19 sec SV(LVOT): 48.0 ml Reading Physician:02:26 PM
[2023-11-08] MEDS: ATORVASTATIN 20 MG TABLET 40 MG PO (22:05)
[2023-11-08] MEDS: APIXABAN 5 MG TABLET PO (22:05)
[2023-11-08 23:41] LABS: Troponin I 0.055 ng/mL (0.01-0.034)
--- NOTE | 2023-11-09 02:06 | PC.NURSE ---
Addendum entered by Maria Victoria Angel R.N. 11/09/23 05:50: Notified MD Lobo of uptrending troponin, continuing to monitor. Patient denies chest pain. VSS. 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 Unsure about year. Patient denies pain, chest pain, N/V. States that he has shortness of breath on exertion that has progressively gotten worse over the year. Lung sounds are CTA. 1+ pitting edema in bilateral feet. Vital signs are stable, O2 saturation 96% on RA. Tele monitoring in place. SCDs are on. Oriented to room & call-light. Plan of care ongoing. Updated MD Lobo of uptrending troponin, continuing to monitor.
[2023-11-09 03:59] VITALS: BP 124/74; PULSE 57; RESP 18; O2SAT 96
[2023-11-09 04:05] VITALS: BP 117/74; PULSE 66; RESP 18; TEMP 36; O2SAT 98
[2023-11-09 05:25] LABS: Add Manual Diff / Slide Review NO; Basophils Absolute Auto 0 /uL (0-100); Basophils Percent Auto 0.4 % (0-2); Eosinophils Absolute Auto 300 /uL (0-450); Eosinophils Percent Auto 5.8 % (2-4); Hematocrit 40.8 % (41-53); Hemoglobin 13.8 g/dL (13.5-17.5); Lymphocytes Absolute Auto 1300 /uL (1100-4500); Lymphocytes Percent Auto 24.9 % (25-40); Mean Corpuscular Hemoglobin 35.3 PG (26-34); Mean Corpuscular Volume 104.1 fL (80-100); Monocytes Absolute Auto 700 /uL (0-900); Monocytes Percent Auto 13.8 % (3-14); Neutrophils Absolute Auto 2800 /uL (1500-7000); Neutrophils Percent Auto 55.1 % (50-75); Platelet Count 121 X10^3/uL (150-400); Red Blood Cell Count 3.92 X10^6/uL (4.5-5.9); Red Cell Distribution Width 13.9 % (11.6-14.8); White Blood Cell Count 5.1 X10^3/uL (4.5-11.0)
[2023-11-09 05:34] LABS: BUN Creatinine Ratio 27.5 (6-22); Blood Urea Nitrogen 19 mg/dL (9-20); Calcium 8.6 mg/dL (8.4-10.2); Carbon Dioxide 25 mmol/L (22-32); Chloride 109 mmol/L (98-107); Estimated Glomerular Filt Rate > 60 mL/min (>60); Glucose 79 mg/dL (80-110); HEMOLYSIS < 15 (0-50); Potassium 4.3 mmol/L (3.4-5.1); Sodium 139 mmol/L (137-145)
[2023-11-09 05:43] LABS: NT-proBNP (BNP-Adult 18+) 3580 pg/mL (<450); Troponin I 0.068 ng/mL (0.01-0.034)
[2023-11-09 08:00] VITALS: BP 124/70; PULSE 75; RESP 16; TEMP 36.2; O2SAT 96
--- NOTE | 2023-11-09 08:36 | P.PN_ITS ---
Subjective Subjective Date Patient Seen: 11/09/23 Exam Vital Signs (past 8 hours): - 11/09/23 03:59 11/09/23 04:05 Temperature 96.8 F L Pulse Rate 57 L 66 Respiratory Rate 18 18 Blood Pressure 124/74 117/74 Pulse Oximetry 96 98 Oxygen Flow Rate 0 0 Oxygen Delivery Method Room Air Oxygen Flow Rate 0 Objective Labs 11/09/23 04:45 11/09/23 04:45 Labs: Laboratory Results - last 24 hr 11/08/23 11/08/23 11/08/23 12:27 14:33 23:05 WBC 5.9 RBC 4.01 L Hgb 14.1 Hct 42.3 MCV 105.3 H MCH 35.1 H MCHC 33.4 RDW 13.7 Plt Count 130 L Neut % (Auto) 69.8 Lymph % (Auto) 16.5 L [place] % (Auto) 10.2 Eos % (Auto) 3.1 Baso % (Auto) 0.4 Neut # (Auto) 4100 Lymph # (Auto) 1000 L [place] # (Auto) 600 Eos # (Auto) 200 Baso # (Auto) 0 Sodium 138 Potassium 4.5 Chloride 110 H Carbon Dioxide 25 BUN 23 H Creatinine 0.75 Estimated GFR > 60 BUN/Creatinine Ratio 30.7 H Glucose 101 Calcium 8.8 Total Bilirubin 2.1 H AST 53 ALT 73 H Alkaline Phosphatase 119 Troponin I 0.037 H 0.040 H 0.055 H NT-Pro-B Natriuret Pep 3000 H Total Protein 6.4 Albumin 3.5 Globulin 2.9 Albumin/Globulin Ratio 1.2 11/09/23 04:45 WBC 5.1 RBC 3.92 L Hgb 13.8 Hct 40.8 L MCV 104.1 H MCH 35.3 H MCHC 34.0 RDW 13.9 Plt Count 121 L Neut % (Auto) 55.1 Lymph % (Auto) 24.9 L [place] % (Auto) 13.8 Eos % (Auto) 5.8 H Baso % (Auto) 0.4 Neut # (Auto) 2800 Lymph # (Auto) 1300 [place] # (Auto) 700 Eos # (Auto) 300 Baso # (Auto) 0 Sodium 139 Potassium 4.3 Chloride 109 H Carbon Dioxide 25 BUN 19 Creatinine 0.69 Estimated GFR > 60 BUN/Creatinine Ratio 27.5 H Glucose 79 L Calcium 8.6 Total Bilirubin AST ALT Alkaline Phosphatase Troponin I 0.068 H NT-Pro-B Natriuret Pep 3580 H Total Protein Albumin Globulin Albumin/Globulin Ratio PFSH Medical History (Updated 11/08/23 @ 18:20 by Jesus Hernandez MD) Afib Vascular dementia Stroke Hyperlipidemia Hypertension Surgical History (Updated 11/08/23 @ 18:28 by Jesus Hernandez MD) H/O bilateral hip replacements Social History household members: spouse Smoking Status: Never smoker Assessment & Plan Assessment & Plan narrative: This is an 82-year-old male with 2 days of peripheral edema. He has a history of a stroke in 2022 which affected his memory. He is on blood pressure medicine and has atrial fibrillation. In the ED his EKG showed no acute ST or T-wave changes. His troponins were 0.37 and 0.40. His chest x-ray was read as showing mild congestion. The BNP was 3,000. He has had no chest pain and does not have any shortness of breath. Elevated Troponin -troponin checked on the basis of new edema complaint. He had no shortness of breath or chest pain. -trend troponin and obtain echocardiogram -continue metoprolol and Atorvastatin -EKG shows baseline atrial fibrillation without acute ST or T-wave changes Peripheral Edema -no indication for diuresis despite complaint of edema and chest x-ray report of congestion. -the edema is minimal and the chest x-ray looks very close to normal. -repeat BNP in the morning, obtain echocardiogram for clarification. Vascular Dementia -this appears to be mild and stable at baseline. Atrial Fibrillation -continue metoprolol and Eliquis. Continue Eliquis for DVT prevention His is his backup decision maker.
[2023-11-09 09:47] VITALS: BP 115/77; PULSE 107
[2023-11-09] MEDS: APIXABAN 5 MG TABLET PO (09:47)
[2023-11-09] MEDS: METOPROLOL ER 50 MG TABLET PO (09:47)
[2023-11-09 10:52] LABS: Troponin I 0.044 ng/mL (0.01-0.034)
[2023-11-09 12:00] VITALS: BP 119/86; PULSE 63; RESP 14; TEMP 36.2; O2SAT 99
--- NOTE | 2023-11-09 12:26 | CM.DANOTE ---
Initial DCP Assessment Visit Note Reviewed EMR and team rounds for pt's medical status. Met with pt/spouse at bedside to introduce self and role. He was found to be sitting upright eating his lunch, is anxious to d/c home. Pt resides independently with his spouse in their own home in [place]. Plan is to d/c home later today after ECHO is read and if there are no issues. Spouse will transport home. No identified d/c needs at this time.\ Payor: Medicare PCP: Iliana Galina Pt is a 82 year-old M who presented to the ED last evening with c/o of lower leg swelling over the last 3-days. He denies having chest pain or shortness of breath. Chest x-ray in the ED showed cardiomegaly and pulmonary vascular congestion, no indication for diuresis. Pt uses a FWW at baseline, drives, and is independent in ADL's, although his lifestyle is mostly sedentary since his stroke last February. Pt was then placed in OBS bed for further cardiac monitoring and ECHO. ECHO was completed and is pending being read. DCP will continue to follow for any further evolving needs, however none are anticipated at this time. Discharge Planning/Care Management CM Discharge Assessment Start: 11/09/23 12:21 Freq: Status: Active Protocol: Document 11/09/23 12:21 DPL (Rec: 11/09/23 12:22 DPL [id number]) Discharge Planning Assessment Assigned Proof Technician Helper SARAH Smith Advance Directives? No History Provided By Patient,Significant Other, Medical Record Has Patient been admitted in last 30 No days? Prior Living Arrangements House Household Members spouse Type of transporation used prior to Drives own vehicle admit Independent with ADL's Yes Is patient alert and oriented? Yes Caregiver for Another No DME Already Rented / Owned FWW / Walker Comment No identified home d/c needs at this time. Barriers to Discharge No Discharge Plan Home Transportation Arrangement Spouse Referrals Initiated None needed Whiteboard Updated in Patient Room with Yes name and ext. # of Proof Technician Helper Review Status In Process Please Provide Date Initial DC 11/09/23 Assessment Was Performed
[2023-11-09] MEDS: FUROSEMIDE 20 MG/2 ML VIAL IV (15:03)
--- NOTE | 2023-11-09 15:24 | PM.DS.1 ---
History of Present Illness History of Present Illness Chief complaint: FT abnormally swollen T-3 Narrative: This is an 82-year-old male with 2 days of peripheral edema. He has a history of a stroke in 2022 which affected his memory. He is on blood pressure medicine and has atrial fibrillation. In the ED his EKG showed no acute ST or T-wave changes. His troponins were 0.37 and 0.40. His chest x-ray was read as showing mild congestion. The BNP was 3,000. He has had no chest pain and does not have any shortness of breath. Discharge Providers Provider Date of admission: 11/08/23 17:19 Discharge Date: 11/09/23 Primary care physician: Iliana Saravia PA-C Discharge provider: Jesus Hernandez MD Summary Hospital Course Hospital Course: This is an 82-year-old male with 2 days of peripheral edema. He has a history of a stroke in 2022 which affected his memory. He is on blood pressure medicine and has atrial fibrillation. In the ED his EKG showed no acute ST or T-wave changes. His troponins were 0.037 and 0.040. His chest x-ray was read as showing mild congestion. The BNP was 3,000. He has had no chest pain and does not have any shortness of breath. Elevated Troponin, doubt NSTEMI, unclear cause of slight troponin leak -troponin checked on the basis of new edema complaint. He had no shortness of breath or chest pain. -the troponin katharine overnight to 0.068 and then dropped today back down to 0.044 -the echocardiogram shows slight increased right heart pressure with ejection fraction of 45-55%. -he was given a 20 mg dose of IV Lasix and discharged on 20 mg oral Lasix every other day, to be re-evaluated by his PCP and potentially by Cardiology soon. -continue metoprolol and Atorvastatin -EKG shows baseline atrial fibrillation without acute ST or T-wave changes Peripheral Edema -no indication initially for diuresis despite complaint of edema and chest x-ray report of congestion. -the edema is minimal and the chest x-ray looks very close to normal. -repeat BNP is up slightly and the echo suggests right ventricular increased pressure. -given 20 mg IV Lasix before discharge and a prescription for 20 mg oral Lasix every other day. Vascular Dementia -this appears to be mild and stable at baseline. Atrial Fibrillation -continue metoprolol and Eliquis. Status at Discharge Cognitive/behavioral status at discharge: at baseline, confused Functional status at discharge: uses cane/walker Overall status at discharge: patient is progressing back to baseline Exam Vital Signs (past 8 hours): - 11/09/23 08:00 11/09/23 09:47 11/09/23 12:00 Temperature 97.2 F L 97.2 F L Pulse Rate 75 107 H 63 Respiratory Rate 16 14 Blood Pressure 124/70 115/77 119/86 Pulse Oximetry 96 99 Oxygen Delivery Method Room Air Oxygen Flow Rate 0 Narrative Exam Narrative: Alert and oriented x3. No apparent distress. His tangents and memory misfires are still evident today. Heart is irregularly irregular without murmur Lungs are clear to auscultation bilaterally Extremities have no ankle edema The BNP is 3580, up slightly. The troponin is trending down now to 0.044. The echocardiogram shows increased right heart pressure with ejection fraction between 45 and 55%. Objective Labs 11/09/23 04:45 11/09/23 04:45 Labs: Laboratory Results - last 24 hr 11/08/23 11/09/23 11/09/23 23:05 04:45 10:10 WBC 5.1 RBC 3.92 L Hgb 13.8 Hct 40.8 L MCV 104.1 H MCH 35.3 H MCHC 34.0 RDW 13.9 Plt Count 121 L Neut % (Auto) 55.1 Lymph % (Auto) 24.9 L [place] % (Auto) 13.8 Eos % (Auto) 5.8 H Baso % (Auto) 0.4 Neut # (Auto) 2800 Lymph # (Auto) 1300 [place] # (Auto) 700 Eos # (Auto) 300 Baso # (Auto) 0 Sodium 139 Potassium 4.3 Chloride 109 H Carbon Dioxide 25 BUN 19 Creatinine 0.69 Estimated GFR > 60 BUN/Creatinine Ratio 27.5 H Glucose 79 L Calcium 8.6 Troponin I 0.055 H 0.068 H 0.044 H NT-Pro-B Natriuret Pep 3580 H PFSH Medical History (Updated 11/08/23 @ 18:20 by Jesus Hernandez MD) Afib Vascular dementia Stroke Hyperlipidemia Hypertension Surgical History (Updated 11/08/23 @ 18:28 by Jesus Hernandez MD) H/O bilateral hip replacements Social History household members: spouse Smoking Status: Never smoker Discharge Plan Discharge Plan Patient Disposition: Home Provider Discharge Comment: Follow up with your primary physician soon. You will be given Lasix every other day. That dosing will need to be re-evaluated soon. Discharge orders & Medications Prescriptions: New furosemide [Lasix] 20 mg tablet 20 mg PO Q OTHER DAY Qty: 14 0RF Continued atorvastatin [Lipitor] 40 MG tablet 40 mg PO BEDTIME Qty: 0 metoprolol succinate 50 mg tablet extended release 24 hr 50 mg PO DAILY Eliquis 5 mg tablet 5 mg PO BID Follow up/Referrals: Iliana Saravia PA-C [Primary Care Provider] - Diet/Activity/Treatments Diet: Regular Visit Report/Discharge Packet Stand Alone Forms: Patient Portal/API, Stroke Signs & Symptoms Discharge Data Primary Care Provider: Iliana Saravia Attending Provider: Jesus Hernandez Admit Date/Time: 11/08/23 17:19
--- NOTE | 2023-11-09 16:21 | PC.NURSE ---
Pt A&OxLucita, VSS. Reviewed discharge information with patient and spouse, both able to teach back independently. Prescription handed to patient's . IV and potline monitor removed, belongings confirmed with patient. Pt escorted downstairs in wheelchair by JHONY Mcbride and discharged home with ride from .
== END 2023-11-09 16:06 | disposition home or self-care (01) ==
LOC: ED 17:01 → AC 17:19
PROVIDERS: Internal Medicine; Physician Assistant; Admitting Provider Family Medicine; Emergency Provider Emergency Medicine; Family Provider Physician Assistant; PCP Physician Assistant; Referring Provider Emergency Medicine; Visit Provider Family Medicine
DX: M79.89 Other specified soft tissue disorders (principal); R79.89 Other specified abnormal findings of blood chemistry; I48.91 Unspecified atrial fibrillation; I69.311 Memory deficit following cerebral infarction; F01.A0 Vascular dementia, mild, without behavioral disturbance, psychotic disturbance, mood disturbance, and anxiety; Z79.01 Long term (current) use of anticoagulants
CPT/HCPCS: 36415; 71046; 80048; 80053; 83880; 84484; 85025; 93005; 93306; 96374; 99284; G0378; J1940

== ENCOUNTER 2023-12-19 08:06 | Emergency (ER) | payer MEDICARE, SELFPAY ==
[2023-11-08 18:09] VITALS: BMI 24.3
[2023-12-19 08:25] VITALS: BP 131/89; PULSE 75; RESP 16; TEMP 36.6; O2SAT 95; BMI 23.6
--- NOTE | 2023-12-19 09:29 | ED_ITS ---
HPI - Ear Problem General Chief complaint: Ear Stated complaint: L ear plugged and bleeding Time Seen by Provider: 12/19/23 08:33 Source: patient Mode of arrival: Ambulatory History of Present Illness HPI Narrative: 83-year-old male with history of CVA on Eliquis presents by private vehicle from home for blood coming from his left ear as well as decreased hearing. He wears hearing aids but is usually able to hear best out of his left ear. He went to bed in his usual state of health, when he woke up this morning he felt some pressure in his left ear and then a subsequent pop and noticed blood on his rest pillow. He states that he is unable to hear out of his left ear at all. Denies pain currently but is very aggravated at his decreased hearing. Related Data Home Medications Medication Instructions Recorded Confirmed atorvastatin 40 mg tablet (Lipitor) 40 mg PO BEDTIME #0 tabs 04/19/13 11/08/23 apixaban 5 mg tablet (Eliquis) 5 mg PO BID 11/08/23 11/08/23 metoprolol succinate 50 mg 50 mg PO DAILY 11/08/23 11/08/23 tablet,extended release 24 hr Previous Rx's Medication Instructions Recorded furosemide 20 mg tablet (Lasix) 20 mg PO Q OTHER DAY #14 tabs 11/09/23 ofloxacin 0.3 % ear drops 10 drp EAR-LEFT Q24H #10 mL 12/19/23 Allergies Allergy/AdvReac Type Severity Reaction Status Date / Time No Known Drug Allergies Allergy Verified 12/19/23 08:28 Review of Systems Review of Systems Narrative: See HPI Patient History Medical History (Updated 12/19/23 @ 09:41 by Marilyn Godoy MD) Afib Vascular dementia Stroke Hyperlipidemia Hypertension Surgical History (Updated 11/08/23 @ 18:28 by Jesus Hernandez MD) H/O bilateral hip replacements Social History household members: spouse Smoking Status: Never smoker Smoking Status: Never smoker alcohol intake frequency: 0-2 drinks per day Substance Use Type: does not use Exam Initial Vital Signs Initial Vital Signs: Vital Signs Temperature 97.8 F 12/19/23 08:25 Pulse Rate 75 12/19/23 08:25 Respiratory Rate 16 12/19/23 08:25 Blood Pressure 131/89 12/19/23 08:25 Pulse Oximetry 95 12/19/23 08:25 Oxygen Delivery Method Room Air 12/19/23 08:25 Const: Awake, alert, no acute distress, nontoxic appearing Ear: R TM normal, L TM with blood. No active bleeding, no mastoid or auricular tenderness Skin: Warm, Dry, intact, no rashes Neuro: AO x3, CN II-XII grossly intact, moves all extremities Course Vital Signs Vital signs: Vital Signs - 8 hr 12/19/23 08:25 Temperature 97.8 F Pulse Rate 75 Respiratory Rate 16 Blood Pressure 131/89 Pulse Oximetry 95 Oxygen Delivery Method Room Air Medical Decision Making MDM Narrative Medical decision making narrative: hemotympanum spontaneous. No active bleeding currently. Spoke with Dr. Saleh, who states that spontaneous hemotympanum can happen in patients with eliquis use. Recommends prophylactic ofloxacin drops and f/u next week in clinic. Hemoty mpanum usually spontaneously resolved, but may on occasion need myringotomy, which can be done through follow up. Discharge Plan Departure Patient Disposition: Home Clinical Impression: Hematotympanum of left ear Instructions: How to Instill Ear Drops Activity Restrictions/Additional Instructions: There is blood located behind the eardrum. After speaking to ENT doctors this can happen while on blood thinners, but should resolve on its own. Please use the antibiotic drops as prescribed. Please follow up with the ENT clinic and request an appointment with Dr. Son mid week next week. Prescriptions: New ofloxacin 0.3 % drops 10 drp EAR-LEFT Q24H Qty: 10 0RF No Action atorvastatin [Lipitor] 40 MG tablet 40 mg PO BEDTIME Qty: 0 metoprolol succinate 50 mg tablet extended release 24 hr 50 mg PO DAILY Eliquis 5 mg tablet 5 mg PO BID furosemide [Lasix] 20 mg tablet 20 mg PO Q OTHER DAY Qty: 14 0RF Referrals: Mayank Saleh MD [Physician] - Choco Son MD [Physician] - Iliana Saravia PA-C [Primary Care Provider] - Stand Alone Forms: Patient Portal/API
== END 2023-12-19 09:56 | disposition home or self-care (01) ==
PROVIDERS: Emergency Provider Emergency Medicine; Family Provider Physician Assistant; PCP Physician Assistant
DX: H74.8X2 Other specified disorders of left middle ear and mastoid (principal); Z79.01 Long term (current) use of anticoagulants
CPT/HCPCS: 99281

== ENCOUNTER 2024-01-12 11:07 | Emergency (ER) | payer MEDICARE, SELFPAY ==
[2023-11-08 18:09] VITALS: BMI 24.3
[2024-01-12 11:15] VITALS: BP 128/92; PULSE 93; RESP 17; TEMP 36.4; O2SAT 97; BMI 25.1
--- NOTE | 2024-01-12 12:11 | DI.RAD.S_ITS ---
PROCEDURE: XR LUMBAR SPINE 2-3V INDICATIONS: Pain/injury/right side pain TECHNIQUE: 3 views of the lumbar spine were acquired. COMPARISON:[facility], MR, MR LUMBAR SPINE WO CON, 09/16/2022, 13:57. [facility], CR, XR LUMBAR SPINE 2 OR 3 VIEWS, 09/05/2022, 15:40. [facility], CR, XR CHEST 2V, 11/08/2023, 12:26. Is present. FINDINGS: Bones: 5 [id number] vertebrae are present. There are partially visualized bilateral hip arthroplasties. There is trace retrolisthesis of L1 on L2, trace anterolisthesis of L4-L5. Multilevel to severe degenerative disc space compression deformities T11 and T12 are present measuring 42% and 37% respectively. It is unchanged at T12 since 2022. T11 compression deformity is new since 2022. Multilevel degenerative disc and foraminal narrowing are present. No suspicious bony lesions. Soft tissues: Overlying bowel gas pattern is normal. No suspicious soft tissue calcifications. IMPRESSION: Compression deformity at T11, new compared to prior exam in 2022. It is otherwise age indeterminate. Multilevel degenerative disc and foraminal Dictated by: Ruby Cruz M.D. on 01/12/2024 at 13:59 Approved by: Ruby Cruz M.D. on 01/12/2024 at 14:02
--- NOTE | 2024-01-12 12:12 | ED_ITS ---
HPI - Back Pain/Injury General Chief Complaint: Back Pain/Injury Stated Complaint: COULDNT GET OU T OF BED BUTT NUMB JOINT PAIN Time Seen by Provider: 01/12/24 11:49 Source: patient History of Present Illness HPI Narrative: Patient here with . Complains of right lower back pain that radiates to the gluteus. Does not radiate to his legs. Patient has history of stroke is on Eliquis. History of right-sided weakness from the stroke but has improved from his stroke in February 2023. Patient did have MRI of the lumbar spine 2022. Has chronic back pain. Was seen pain management, Dr. Garibay, was getting injections. Last injection he thinks was sometime last year. None this year. Patient denies any bowel or bladder incontinence. No saddle paresthesia. No new weakness or numbness to the lower extremities. Patient has been doing well walking ambulating without any difficulty. However 3 weeks ago tried lifting a riding lawnmower and strained his lower back. Since then has been using a walker in the morning and then not needing 1 in the rest of the day. However, this morning he tried getting out of bed and could not. EMS was called and helped him get out. drove him here. Patient is able to get himself up from the chair and use his walker here on exam. Foot and ankle exposed. Back exposed. Related Data Home Medications Medication Instructions Recorded Confirmed atorvastatin 40 mg tablet (Lipitor) 40 mg PO BEDTIME #0 tabs 04/19/13 11/08/23 apixaban 5 mg tablet (Eliquis) 5 mg PO BID 11/08/23 11/08/23 metoprolol succinate 50 mg 50 mg PO DAILY 11/08/23 11/08/23 tablet,extended release 24 hr Previous Rx's Medication Instructions Recorded furosemide 20 mg tablet (Lasix) 20 mg PO Q OTHER DAY #14 tabs 11/09/23 ofloxacin 0.3 % ear drops 10 drp EAR-LEFT Q24H #10 mL 12/19/23 Allergies Allergy/AdvReac Type Severity Reaction Status Date / Time No Known Drug Allergies Allergy Verified 01/12/24 11:15 Review of Systems Review of Systems Narrative: GENERAL: negative chills, fatigue, malaise, fever, sweats. HEENT: negative sinus pain, ear pain, sore throat RESPIRATORY: negative dyspnea, cough CARDIOVASCULAR: negative chest pain, palpitations GASTROINTESTINAL: negative nausea, vomiting, abdominal pain : negative dysuria, frequency, hematuria MUSCULOSKELETAL: Positive muscle or bony pain SKIN: negative rash, skin lesions NEUROLOGIC: negative weakness, positive numbness ROS Unobtainable: All systems reviewed & are unremarkable except as noted in HPI and below Patient History Medical History Afib Vascular dementia Stroke Hyperlipidemia Hypertension Surgical History H/O bilateral hip replacements Social History household members: spouse Smoking Status: Never smoker Smoking Status: Never smoker alcohol intake frequency: 0-2 drinks per day Substance Use Type: does not use Exam Narrative Exam Narrative: GENERAL: in no distress, not toxic not dyspneic HEAD: Normocephalic. EYES: Pupils equal round ENT: Mucous membranes moist. NECK: Trachea midline. CARDIOVASCULAR: Regular rate and rhythm RESPIRATORY: Clear to auscultation. Breath sounds equal bilaterally. No wheezes, rales, or rhonchi. GASTROINTESTINAL: Abdomen soft, non-tender EXTREMITIES: No gross deformities. BACK: No flank tenderness. No midline tenderness or step-off of the lumbar spine. There is right greater than left right paralumbar muscle tenderness and spasm. However able to lean forward and back and do side bends without difficulty. No pain with straight leg raise on the right or left. NEURO: AOx4. Able to stand and bear weight. Uses a walker at bedside. Able to lift the foot and clear the ground with the right side. Slight foot drop but patient states this is not new due to his stroke last year. Strong bilateral patellar reflexes and ankle flexion-extension. Light touch intact to foot and toes. Able to wiggle toes. Foot is warm soft and pink with strong pedal pulse and brisk cap refills. SKIN: Warm and dry PSYCH: Not anxious, is cooperative Initial Vital Signs Initial Vital Signs: Vital Signs Temperature 97.6 F 01/12/24 11:15 Pulse Rate 93 H 01/12/24 11:15 Respiratory Rate 17 01/12/24 11:15 Blood Pressure 128/92 H 01/12/24 11:15 Pulse Oximetry 97 01/12/24 11:15 Oxygen Delivery Method Room Air 01/12/24 11:15 Course Orders Ordered: ED Orders 01/12/24 12:11 XR lumbar spine 2-3V Stat Vital Signs Vital signs: Vital Signs - 8 hr 01/12/24 11:15 01/12/24 15:13 Temperature 97.6 F Pulse Rate 93 H 84 Respiratory Rate 17 18 Blood Pressure 128/92 H 148/95 H Pulse Oximetry 97 97 Oxygen Delivery Method Room Air Room Air MDM - Back Pain/Injury Medical Records Medical records narrative: [address] [address] Magnetic Resonance Report Signed Patient: Júnior Clemons MR#: [id number] : 1940 Acct:[id number] Age/Sex: 81 / M Date of Service: 09/16/22 Loc: MRI Accession Number: [id number] Procedure: MR lumbar spine wo con Ordering Provider: Tre Cook MD PROCEDURE: MR LUMBAR SPINE WO CON INDICATIONS: Radiculopathy, lumbar region TECHNIQUE: Noncontrast sagittal T1 spin echo and T2 fast echo, sagittal STIR, and T2 fast spin echo through the lumbar spine. In cases with scoliosis, additional coronal T2 fast spin echo may be performed. COMPARISON: [facility], , MR LUMBAR SPINE WO CON, 06/22/2019, 15:21. FINDINGS: Image quality: Excellent. Alignment and Curvature: There is straightening of normal lumbar lordosis. 5 millimeter retrolisthesis of L1 on L2, L2 on L3 and 6 millimeter anterolisthesis of L4 on L5 is again seen unchanged from prior study. Mild leftward curvature of lumbar spine with apex at L3 level is again seen. Bone Marrow: There is no gross marrow edema. No acute vertebral body compression fractures. Chronic appearing compression deformity involving T12 is again seen with now up to 40 percent loss of L2 vertebral body height anteriorly further decreased compared to 2019 study. Spinal Cord: Conus medullaris terminates at the T12-L1 level. Visualized cord demonstrates normal signal and size. Paraspinous Soft Tissues: No paravertebral masses. T12-L1: Broad-based disc bulge and bilateral facet arthrosis is seen with mild central canal stenosis and mild right-sided neural foraminal narrowing. L1-L2: Loss of disc height and disc signal is seen. Broad-based disc bulge and bilateral facet arthrosis is seen with onlv-my-cjwmsyth central canal stenosis and moderate to severe left-sided neural foraminal narrowing. Mild to moderate right-sided neural foraminal narrowing is also seen. L2-L3: Loss of disc height and disc signal is seen. Degenerative endplate changes are also noted. Broad-based disc bulge and bilateral facet arthrosis with hypertrophy of ligamentum flavum is seen causing moderate central canal stenosis and moderate to severe bilateral neural foraminal narrowing. L3-L4: There is loss of disc height and disc signal. Degenerative endplate changes are noted. Broad-based, more left-sided disc bulge and bilateral facet arthrosis with hypertrophy of ligamentum flavum is seen causing moderate central canal stenosis and severe bilateral neural foraminal narrowing. L4-L5: Loss of disc height and disc signal. Broad-based disc bulge and bilateral facet arthrosis with hypertrophy of ligamentum flavum is seen causing severe central canal stenosis and bilateral neural foraminal narrowing. L5-S1: Loss of disc height and disc signal is seen. There is diffuse disc bulge and bilateral facet arthrosis with mild central canal stenosis, moderate to severe left-sided neural foraminal narrowing and mild right-sided neural foraminal narrowing. IMPRESSION: 1. Chronic appearing anterior wedge compression deformity at T12 level with interval further loss of T12 disc height as above. No acute vertebral body compression fracture. No marrow edema. 2. Mild levoscoliosis with apex at L3 level. Grade 1 retrolisthesis at L1-2 and L2-3 levels and grade 1 anterolisthesis at L4-5 level. 3. 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 Dictated by: Chad Wilkinson M.D. on 09/17/2022 at 8:34 Approved by: Chad Wilkinson M.D. on 09/17/2022 at 8:42 MDM Narrative Medical decision making narrative: Patient here with . Complains of right lower back pain that radiates to the gluteus. Does not radiate to his legs. Patient has history of stroke is on Eliquis. History of right-sided weakness from the stroke but has improved from his stroke in February 2023. Patient did have MRI of the lumbar spine 2022. Has chronic back pain. Was seen pain management, Dr. Garibay, was getting injections. Last injection he thinks was sometime last year. None this year. Patient denies any bowel or bladder incontinence. No saddle paresthesia. No new weakness or numbness to the lower extremities. Patient has been doing well walking ambulating without any difficulty. However 3 weeks ago tried lifting a riding lawnmower and strained his lower back. Since then has been using a walker in the morning and then not needing 1 in the rest of the day. However, this morning he tried getting out of bed and could not. EMS was called and helped him get out. drove him here. Patient is able to get himself up from the chair and use his walker here on exam. Foot and ankle exposed. Back exposed. After history and exam x-ray lumbar spine. At this time exam is reassuring. No red flags. No MRI indicated this time. No blood work indicated. No fever chills. [facility] Medical records reviewed: MRI lumbar spine from last year Differential considered: Includes but not limited to lumbar strain compression fracture sciatica, cauda equina, spinal infarct, muscular strain Imaging studies independently reviewed: X-ray lumbar spine no acute finding Consultations: 2:30 p.m.. Spoke with ortho spine provider, dr boss, recommends giving prescription for TLSO brace, he can follow up with him in the office this week. MRI can be done outpatient. Treatments: None indicated this time. Pain is controlled. Patient already has a walker from home. Patient does have establish primary care and pain management Re-evaluations: 3:00 p.m. Reviewed results with patient and . Exam is reassuring. No neuro deficits, however x-ray does show new T11 fracture which is uncertain of chronicity whether it occurred 3 weeks ago while lifting riding oven loader or before that. However will need outpatient MRI of the lumbar spine and physical therapy referral by primary care. They will call Dr. Garibay for re- evaluation for epidural injections of the lower spine. Prescription for a TLSO brace provided. I did contact ortho spine for him to follow up with. They need to call today to confirm office appointment time. Reviewed with patient and T12 fracture was seen last year on the MRI. Discussion: Appropriate for discharge home exam is reassuring. No neuro deficits. No red flags at this time. No MRI indicated at this time. No blood work indicated. They do have primary care and pain management to follow up with for outpatient services including but not limited to physical therapy and MRI and epidural injections. Patient states he will use his recliner to help unable to get him out of bed in the mornings. He will continue using his walker. I did contact ortho spine Pain is controlled. Contacted ortho spine provider today for treatment plan, family agrees with treatment plan. Handwritten paper Prescription for TLSO brace provided. Return precautions reviewed. They desire discharge home Diagnosis: Sciatica/lumbar strain Discharge Plan Departure Patient Disposition: Home Clinical Impression: Compression fracture of body of thoracic vertebra Strain of lumbar region Qualifiers: Encounter type: initial encounter Qualified Code(s): S39.012A - Strain of muscle, fascia and tendon of lower back, initial encounter Sciatica Qualifiers: Laterality: right Qualified Code(s): M54.31 - Sciatica, right side Instructions: DI for Vertebral Fracture, DI for Sciatica, DI for Back Pain With Sciatica, DI for Back Strain or Sprain Activity Restrictions/Additional Instructions: Please see your family doctor this week for re-evaluation and to schedule outpatient MRI of your lower back as well as possible physical therapy treatment. Please call Dr. Garibay office today to get re-evaluation for epidural spinal/lumbar injections. Continue home medications. Return if worse if any questions or concerns. At this time x-ray of your lower back does show thoracic spine vertebrae 11. Compression fracture, however when this occurred is uncertain. Prescription for a back brace is provided for you. Please call provided ortho spine provider today, he has been contacted and is expecting her call for appointment to be seen within a week. Continue using your walker at home. You may need to use your recliner at night to help get up in the morning. Prescriptions: No Action atorvastatin [Lipitor] 40 MG tablet 40 mg PO BEDTIME Qty: 0 metoprolol succinate 50 mg tablet extended release 24 hr 50 mg PO DAILY Eliquis 5 mg tablet 5 mg PO BID furosemide [Lasix] 20 mg tablet 20 mg PO Q OTHER DAY Qty: 14 0RF ofloxacin 0.3 % drops 10 drp EAR-LEFT Q24H Qty: 10 0RF Referrals: Martin Boss MD [Physician] - Iliana Saravia PA-C [Primary Care Provider] - Stand Alone Forms: Patient Portal/API
[2024-01-12 15:13] VITALS: BP 148/95; PULSE 84; RESP 18; O2SAT 97
== END 2024-01-12 15:14 | disposition home or self-care (01) ==
PROVIDERS: Emergency Provider Emergency Medicine; Family Provider Physician Assistant; PCP Physician Assistant
DX: S22.080A Wedge compression fracture of T11-T12 vertebra, initial encounter for closed fracture (principal); S39.012A Strain of muscle, fascia and tendon of lower back, initial encounter; M54.31 Sciatica, right side; Z86.73 Personal history of transient ischemic attack (TIA), and cerebral infarction without residual deficits; Z79.01 Long term (current) use of anticoagulants; X58.XXXA Exposure to other specified factors, initial encounter
CPT/HCPCS: 72100; 99283

== ENCOUNTER 2024-03-30 14:35 | Emergency (ER) | payer MEDICARE, SELFPAY ==
[2023-11-08 18:09] VITALS: BMI 24.3
[2024-03-30] VITALS (15 sets, daily range): BP systolic 131–152; BP diastolic 81–114; PULSE 79–111; RESP 18–40; TEMP 36.4; O2SAT 92–97
--- NOTE | 2024-03-30 14:48 | DI.RAD.S_ITS ---
PROCEDURE: XR CHEST 1V INDICATIONS: Shortness of breath TECHNIQUE: One view of the chest was acquired. COMPARISON: [facility], CR, XR CHEST 2V, 11/08/2023, 12:26. [facility], CR, XR CHEST 2V, 07/17/2021, 12:36. FINDINGS: Surgical changes and devices: None. Lungs and pleura: Bibasilar reticulation, increased from prior. Low lung volumes. Mild peribronchial cuffing and mild interstitial opacities. Mediastinum: Mediastinal contours appear normal. Heart size is enlarged. Bones and chest wall: No suspicious bony lesions. Overlying soft tissues appear unremarkable. IMPRESSION: Suspected mild pulmonary edema. Bibasilar reticulation, could represent interstitial thickening or senescent fibrosis. Dictated by: Song Pettit M.D. on 03/30/2024 at 15:34 Approved by: Song Pettit M.D. on 03/30/2024 at 15:35
--- NOTE | 2024-03-30 14:48 | EKG_ITS ---
[place] [address] [place] [id number] Test Date: 2024-03-30 Pat Name: Júnior Clemons Department: [facility] Room: Gender: Male Hand Tier: JOSUÉ : 1940 Requested By: Order Number: [id number] Reading MD: Sumanth Rainey Measurements Intervals [place] Rate: 94 P: [place]: QRS: 30 QRSD: 96 T: 129 QT: 370 QTc: 462 Interpretive Statements Atrial fibrillation Septal infarct , age undetermined Inferior infarct , age undetermined Electronically Signed On 04-05-2024 9:09:09 PDT by Sumanth Rainey
[2024-03-30 15:07] LABS: Add Manual Diff / Slide Review NO; Basophils Absolute Auto 100 /uL (0-100); Basophils Percent Auto 0.6 % (0-2); Eosinophils Absolute Auto 200 /uL (0-450); Hematocrit 45.6 % (41-53); Hemoglobin 15.3 g/dL (13.5-17.5); Lymphocytes Absolute Auto 900 /uL (1100-4500); Lymphocytes Percent Auto 9.2 % (25-40); Mean Corpuscular HGB Conc 33.5 % (30-36); Mean Corpuscular Hemoglobin 36.1 PG (26-34); Mean Corpuscular Volume 107.9 fL (80-100); Monocytes Absolute Auto 1000 /uL (0-900); Monocytes Percent Auto 10.3 % (3-14); Neutrophils Absolute Auto 7400 /uL (1500-7000); Neutrophils Percent Auto 77.9 % (50-75); Platelet Count 102 X10^3/uL (150-400); Red Blood Cell Count 4.23 X10^6/uL (4.5-5.9); White Blood Cell Count 9.5 X10^3/uL (4.5-11.0)
[2024-03-30 15:14] LABS: Prothrombin Time 22.7 SECONDS (9.4-12.5)
[2024-03-30 15:18] LABS: Alanine Aminotransferase 64 IU/L (<50); Albumin Globulin Ratio 1.5 (1.0-2.8); Alkaline Phosphatase 138 U/L (38-126); Aspartate Aminotransferase 63 IU/L (17-59); BUN Creatinine Ratio 36.1 (6-22); Bilirubin Total 3.8 mg/dL (0.2-1.3); Blood Urea Nitrogen 35 mg/dL (9-20); Carbon Dioxide 22 mmol/L (22-32); Chloride 108 mmol/L (98-107); Estimated Glomerular Filt Rate > 60 mL/min (>60); Globulin 2.6 g/dL (1.7-4.1); Glucose 86 mg/dL (80-110); HEMOLYSIS < 15 (0-50); Potassium 4.5 mmol/L (3.4-5.1); Sodium 139 mmol/L (137-145); Total Protein 6.6 g/dL (6.3-8.2)
[2024-03-30 15:28] LABS: NT-proBNP (BNP-Adult 18+) 8640 pg/mL (<450); Troponin I 0.067 ng/mL (0.01-0.034)
[2024-03-30] MEDS: FUROSEMIDE 40 MG/4 ML VIAL IV ×2 (17:05→19:07)
--- NOTE | 2024-03-30 17:14 | ED.SOB ---
HPI - SOB/Dyspnea <Noah Yepez MD - Last Filed: 03/31/24 08:35> General Chief Complaint: Shortness of Breath/Dyspnea Stated Complaint: SOB, Increased swelling in legs sent by PCP Time Seen by Provider: 03/30/24 16:42 Source: patient Mode of arrival: Ambulatory Limitations: no limitations History of Present Illness HPI Narrative: 83-year-old male with history of atrial fibrillation on Eliquis chronic anticoagulation, prior stroke 2022, congestive heart failure with last echo October 2023, recalls patient was treated with IV Lasix but apparently has not had any oral Lasix as a chronic medication. He has not run out of Lasix as he was not really prescribed Lasix, per understanding of patient's . No recent cough. No fevers or chills. No current/recent chest pain. Leg swelling is bilateral and without pain. Related Data Home Medications Medication Instructions Recorded Confirmed atorvastatin 40 mg tablet (Lipitor) 40 mg PO BEDTIME #0 tabs 04/19/13 11/08/23 apixaban 5 mg tablet (Eliquis) 5 mg PO BID 11/08/23 11/08/23 metoprolol succinate 50 mg 50 mg PO DAILY 11/08/23 11/08/23 tablet,extended release 24 hr Previous Rx's Medication Instructions Recorded furosemide 20 mg tablet (Lasix) 20 mg PO Q OTHER DAY #14 tabs 11/09/23 ofloxacin 0.3 % ear drops 10 drp EAR-LEFT Q24H #10 mL 12/19/23 furosemide 20 mg tablet (Lasix) 20 mg PO DAILY #30 tabs 03/30/24 Allergies Allergy/AdvReac Type Severity Reaction Status Date / Time No Known Drug Allergies Allergy Verified 01/12/24 11:15 Patient History <Noah Yepez MD - Last Filed: 03/31/24 08:35> Medical History Afib Vascular dementia Stroke Hyperlipidemia Hypertension Surgical History H/O bilateral hip replacements Social History household members: spouse Smoking Status: Never smoker Smoking Status: Never smoker alcohol intake frequency: 0-2 drinks per day Substance Use Type: does not use Exam <Noah Yepez MD - Last Filed: 03/31/24 08:35> Initial Vital Signs Initial Vital Signs: Vital Signs Temperature 97.5 F L 03/30/24 14:44 Pulse Rate 107 H 03/30/24 14:44 Respiratory Rate 26 H 03/30/24 14:44 Blood Pressure 139/96 H 03/30/24 14:44 Pulse Oximetry 97 03/30/24 14:44 Oxygen Delivery Method Room Air 03/30/24 14:44 Const General: cooperative HENMT Head: normocephalic and atraumatic Nose: external nose normal Face and sinus: face symmetric Mouth: moist mucous membranes Throat: tonsils normal Eyes Eyelids: eyelids normal Sclera: sclerae normal Neck Neck: normal visual inspection and trachea midline Chest Chest: normal inspection of the chest Resp Effort & Inspection: normal respiratory effort, able to speak in complete sentences, no respiratory distress and no use of accessory muscles Auscultation: no wheezes Cardio Rhythm: regular rhythm Pulses: normal peripheral pulses Other: Soft diastolic murmur along sternal border, no mechanical click, no sternal scars GI Inspection: non-distended Palpation: soft, No guarding, No pulsatile mass and No tender Back/Spine/Pelvis Cervical Spine: cervical ROM normal and No pain with cervical ROM Skin General: no rashes or lesions noted and No jaundice Neuro General: patient alert and gait normal Extrem General: no calf tenderness Other: Bilaeral lower extremity edema above ankles 2-3+, symmetrical, no redness or tenderness Psych Mental Status: mental status grossly normal <Placido Lemus DO - Last Filed: 03/31/24 01:17> Initial Vital Signs Initial Vital Signs: Vital Signs Temperature 97.5 F L 03/30/24 14:44 Pulse Rate 107 H 03/30/24 14:44 Respiratory Rate 26 H 03/30/24 14:44 Blood Pressure 139/96 H 03/30/24 14:44 Pulse Oximetry 97 03/30/24 14:44 Oxygen Delivery Method Room Air 03/30/24 14:44 Course <Noah Yepez MD - Last Filed: 03/31/24 08:35> Orders Ordered: Discontinued Medications Furosemide (Furosemide 40 Mg/4 Ml Vial) 40 mg IV NOW ONE Stop: 03/30/24 16:57 Last Admin: 03/30/24 17:05 Dose: 40 mg Documented By: ANDERSON Furosemide (Furosemide 40 Mg/4 Ml Vial) 40 mg IV NOW ONE Stop: 03/30/24 18:59 Last Admin: 03/30/24 19:07 Dose: 40 mg Documented By: CHRABEL Vital Signs Vital signs: Vital Signs - 8 hr 03/30/24 17:30 03/30/24 17:45 03/30/24 17:45 Pulse Rate 108 H 94 H Respiratory Rate Blood Pressure 141/92 H Pulse Oximetry 93 03/30/24 18:00 03/30/24 18:00 03/30/24 18:30 Pulse Rate 97 H Respiratory Rate 27 H Blood Pressure 152/114 H Pulse Oximetry 92 03/30/24 18:30 03/30/24 19:00 03/30/24 19:30 Pulse Rate 91 H 111 H Respiratory Rate 40 H Blood Pressure 145/99 H Pulse Oximetry 93 96 03/30/24 20:00 03/30/24 20:17 Pulse Rate 96 H Respiratory Rate 29 H Blood Pressure 146/88 H Pulse Oximetry 94 <Placido Lemus DO - Last Filed: 03/31/24 01:17> Orders Ordered: Discontinued Medications Furosemide (Furosemide 40 Mg/4 Ml Vial) 40 mg IV NOW ONE Stop: 03/30/24 16:57 Last Admin: 03/30/24 17:05 Dose: 40 mg Documented By: ANDERSON Furosemide (Furosemide 40 Mg/4 Ml Vial) 40 mg IV NOW ONE Stop: 03/30/24 18:59 Last Admin: 03/30/24 19:07 Dose: 40 mg Documented By: CHARBEL Vital Signs Vital signs: Vital Signs - 8 hr 03/30/24 17:30 03/30/24 17:45 03/30/24 17:45 Pulse Rate 108 H 94 H Respiratory Rate Blood Pressure 141/92 H Pulse Oximetry 93 03/30/24 18:00 03/30/24 18:00 03/30/24 18:30 Pulse Rate 97 H Respiratory Rate 27 H Blood Pressure 152/114 H Pulse Oximetry 92 03/30/24 18:30 03/30/24 19:00 03/30/24 19:30 Pulse Rate 91 H 111 H Respiratory Rate 40 H Blood Pressure 145/99 H Pulse Oximetry 93 96 03/30/24 20:00 08/20/24 20:17 Pulse Rate 96 H Respiratory Rate 29 H Blood Pressure 146/88 H Pulse Oximetry 94 MDM - SOB/Dyspnea <Noah Yepez MD - Last Filed: 03/31/24 08:35> Lab Data Attestation: I reviewed the patient's lab results. 03/30/24 14:55 03/30/24 14:55 Labs: Lab Results 03/30/24 03/30/24 03/30/24 Range/Units 14:55 15:13 16:46 WBC 9.5 (4.5-11.0) X10^3/uL RBC 4.23 L (4.5-5.9) X10^6/uL Hgb 15.3 (13.5-17.5) g/dL Hct 45.6 (41-53) % MCV 107.9 H (80-100) fL MCH 36.1 H (26-34) PG MCHC 33.5 (30-36) % RDW 16.0 H (11.6-14.8) % Plt Count 102 L (150-400) X10^3/uL Neut % (Auto) 77.9 H (50-75) % Lymph % (Auto) 9.2 L (25-40) % [place] % (Auto) 10.3 (3-14) % Eos % (Auto) 2.0 (2-4) % Baso % (Auto) 0.6 (0-2) % Neut # (Auto) 7400 H (0353-1391) /uL Lymph # (Auto) 900 L (3600-1396) /uL [place] # (Auto) 1000 H (0-900) /uL Eos # (Auto) 200 (0-450) /uL Baso # (Auto) 100 (0-100) /uL PT 22.7 H (9.4-12.5) SECONDS INR 2.0 H (0.9-1.3) Sodium 139 (137-145) mmol/L Potassium 4.5 (3.4-5.1) mmol/L Chloride 108 H (98-107) mmol/L Carbon Dioxide 22 (22-32) mmol/L BUN 35 H (9-20) mg/dL Creatinine 0.97 (0.66-1.25) mg/dL Estimated GFR > 60 (>60) mL/min BUN/Creatinine Ratio 36.1 H (6-22) Glucose 86 (80-110) mg/dL Lactate 2.0 (0.7-2.1) mmol/L Calcium 9.0 (8.4-10.2) mg/dL Total Bilirubin 3.8 H (0.2-1.3) mg/dL AST 63 H (17-59) IU/L ALT 64 H (<50) IU/L Alkaline Phosphatase 138 H (38-126) U/L Troponin I 0.067 H (0.01-0.034) ng/mL NT-Pro-B Natriuret Pep 8640 H (<450) pg/mL Total Protein 6.6 (6.3-8.2) g/dL Albumin 4.0 (3.5-5.0) g/dL Globulin 2.6 (1.7-4.1) g/dL Albumin/Globulin Ratio 1.5 (1.0-2.8) SARS-CoV-2 (PCR) Negative (Negative) Influenza A (RT-PCR) Flu a negative (NEGATIVE) Influenza B (RT-PCR) Flu b negative (NEGATIVE) RSV (PCR) Negative (Negative) 03/30/24 Range/Units 17:10 WBC (4.5-11.0) X10^3/uL RBC (4.5-5.9) X10^6/uL Hgb (13.5-17.5) g/dL Hct (41-53) % MCV (80-100) fL MCH (26-34) PG MCHC (30-36) % RDW (11.6-14.8) % Plt Count (150-400) X10^3/uL Neut % (Auto) (50-75) % Lymph % (Auto) (25-40) % [place] % (Auto) (3-14) % Eos % (Auto) (2-4) % Baso % (Auto) (0-2) % Neut # (Auto) (2977-4069) /uL Lymph # (Auto) (5249-8506) /uL [place] # (Auto) (0-900) /uL Eos # (Auto) (0-450) /uL Baso # (Auto) (0-100) /uL PT (9.4-12.5) SECONDS INR (0.9-1.3) Sodium (137-145) mmol/L Potassium (3.4-5.1) mmol/L Chloride (98-107) mmol/L Carbon Dioxide (22-32) mmol/L BUN (9-20) mg/dL Creatinine (0.66-1.25) mg/dL Estimated GFR (>60) mL/min BUN/Creatinine Ratio (6-22) Glucose (80-110) mg/dL Lactate (0.7-2.1) mmol/L Calcium (8.4-10.2) mg/dL Total Bilirubin (0.2-1.3) mg/dL AST (17-59) IU/L ALT (<50) IU/L Alkaline Phosphatase (38-126) U/L Troponin I 0.064 H (0.01-0.034) ng/mL NT-Pro-B Natriuret Pep (<450) pg/mL Total Protein (6.3-8.2) g/dL Albumin (3.5-5.0) g/dL Globulin (1.7-4.1) g/dL Albumin/Globulin Ratio (1.0-2.8) SARS-CoV-2 (PCR) (Negative) Influenza A (RT-PCR) (NEGATIVE) Influenza B (RT-PCR) (NEGATIVE) RSV (PCR) (Negative) Imaging Data Chest x-ray: Radiologist's Impression: Close Chest X-Ray (Signed) Song Pettit - 03/30/24 Launch?Image [address] [address] XRay Report Signed Patient: Júnior Clemons MR#: [id number] : 1940 Acct:[id number] Age/Sex: 83 / M Date of Service: 03/30/24 Loc: ED Accession Number: [id number] Procedure: XR chest 1V Ordering Provider: Noah Yepez MD PROCEDURE: XR CHEST 1V INDICATIONS: Shortness of breath TECHNIQUE: One view of the chest was acquired. COMPARISON: [facility], , XR CHEST 2V, 11/08/2023, 12:26. [facility], , XR CHEST 2V, 07/17/2021, 12:36. FINDINGS: Surgical changes and devices: None. Lungs and pleura: Bibasilar reticulation, increased from prior. Low lung volumes. Mild peribronchial cuffing and mild interstitial opacities. Mediastinum: Mediastinal contours appear normal. Heart size is enlarged. Bones and chest wall: No suspicious bony lesions. Overlying soft tissues appear unremarkable. IMPRESSION: Suspected mild pulmonary edema. Bibasilar reticulation, could represent interstitial thickening or senescent fibrosis. Dictated by: Song Pettit M.D. on 03/30/2024 at 15:34 Approved by: Song Pettit M.D. on 03/30/2024 at 15:35 ECG Data Attestation: I personally reviewed and interpreted this ECG as follows: Interpretation: Atrial fibrillation with ventricular rate 94, no obvious ST segment elevation or depression changes. QRS 96. QTC 462. MDM Narrative Medical decision making narrative: 83-year-old male with history of congestive heart failure, previously treated with IV Lasix per , but she can not recall that he has been on any oral Lasix chronic medication, has increasing shortness of breath and increasing bilateral lower extremity edema. He denies any chest discomfort. No recent cough cold symptoms. Chest x-ray shows fluid overload changes. However he is in supine recumbent position speaking in full sentences, in no respiratory distress, no bibasilar crackles, with bilateral lower extremity edema, normotensive, with normal room-air sat. Initial troponin 0.067, in range of similar elevations in the past. T bili 3, no abdominal tenderness, likely due to passive venous congestion from CHF, also elevated in the past, no abdominal imaging warranted at this time. BNP 8600. IV Lasix 40 mg for now. COVID swab pending. We will repeat interval troponin. Records review. 11/08/2023 cardiac echo. LVEF 50%, moderate LVH, moderate MR, bilateral dilated atria, moderate TR. Interval repeat troponin 0.064 decreased, similarly elevated in the past COVID swab negative. Congestive heart failure with some fluid overload clinically, however in no respiratory distress, speaking in full sentences, supine in no respiratory distress, bilateral lower extremity edema, apparently not taking any to read at home, IV Lasix given, further oral Lasix diuresis newly prescribed. seems interested in taking him home, she will fill the prescription as she can only drive while as laid out. Lasix 20 mg daily prescription sent to local pharmacy for to feel now. They will start daily dosing, recheck advised the next few days to check symptoms and response to therapy, also to check electrolytes. Home with Dr Lemus: Received turned over. Review patient's history and physical workup up to this point. I agree with the patient most likely is experiencing fluid overload. He has been on Lasix in the past. His has already picked up the prescription from the day provider. He was given more Lasix here in the ER. He did diurese. His BNP is elevated. Chest x-ray shows pulmonary edema. He was not hypoxic. Not tachypneic. No indication for admission to the hospital today although I did inform the patient and his that if his breathing were to worsen despite the diuretics he may need to return to the ER. They expressed understanding and agreement with plan. <Placido Lemus, - Last Filed: 03/31/24 01:17> Lab Data Labs: Lab Results 03/30/24 03/30/24 03/30/24 Range/Units 14:55 15:13 16:46 WBC 9.5 (4.5-11.0) X10^3/uL RBC 4.23 L (4.5-5.9) X10^6/uL Hgb 15.3 (13.5-17.5) g/dL Hct 45.6 (41-53) % MCV 107.9 H (80-100) fL MCH 36.1 H (26-34) PG MCHC 33.5 (30-36) % RDW 16.0 H (11.6-14.8) % Plt Count 102 L (150-400) X10^3/uL Neut % (Auto) 77.9 H (50-75) % Lymph % (Auto) 9.2 L (25-40) % [place] % (Auto) 10.3 (3-14) % Eos % (Auto) 2.0 (2-4) % Baso % (Auto) 0.6 (0-2) % Neut # (Auto) 7400 H (6305-2905) /uL Lymph # (Auto) 900 L (5463-2528) /uL [place] # (Auto) 1000 H (0-900) /uL Eos # (Auto) 200 (0-450) /uL Baso # (Auto) 100 (0-100) /uL PT 22.7 H (9.4-12.5) SECONDS INR 2.0 H (0.9-1.3) Sodium 139 (137-145) mmol/L Potassium 4.5 (3.4-5.1) mmol/L Chloride 108 H (98-107) mmol/L Carbon Dioxide 22 (22-32) mmol/L BUN 35 H (9-20) mg/dL Creatinine 0.97 (0.66-1.25) mg/dL Estimated GFR > 60 (>60) mL/min BUN/Creatinine Ratio 36.1 H (6-22) Glucose 86 (80-110) mg/dL Lactate 2.0 (0.7-2.1) mmol/L Calcium 9.0 (8.4-10.2) mg/dL Total Bilirubin 3.8 H (0.2-1.3) mg/dL AST 63 H (17-59) IU/L ALT 64 H (<50) IU/L Alkaline Phosphatase 138 H (38-126) U/L Troponin I 0.067 H (0.01-0.034) ng/mL NT-Pro-B Natriuret Pep 8640 H (<450) pg/mL Total Protein 6.6 (6.3-8.2) g/dL Albumin 4.0 (3.5-5.0) g/dL Globulin 2.6 (1.7-4.1) g/dL Albumin/Globulin Ratio 1.5 (1.0-2.8) SARS-CoV-2 (PCR) Negative (Negative) Influenza A (RT-PCR) Flu a negative (NEGATIVE) Influenza B (RT-PCR) Flu b negative (NEGATIVE) RSV (PCR) Negative (Negative) 03/30/24 Range/Units 17:10 WBC (4.5-11.0) X10^3/uL RBC (4.5-5.9) X10^6/uL Hgb (13.5-17.5) g/dL Hct (41-53) % MCV (80-100) fL MCH (26-34) PG MCHC (30-36) % RDW (11.6-14.8) % Plt Count (150-400) X10^3/uL Neut % (Auto) (50-75) % Lymph % (Auto) (25-40) % [place] % (Auto) (3-14) % Eos % (Auto) (2-4) % Baso % (Auto) (0-2) % Neut # (Auto) (4937-8351) /uL Lymph # (Auto) (1159-5751) /uL [place] # (Auto) (0-900) /uL Eos # (Auto) (0-450) /uL Baso # (Auto) (0-100) /uL PT (9.4-12.5) SECONDS INR (0.9-1.3) Sodium (137-145) mmol/L Potassium (3.4-5.1) mmol/L Chloride (98-107) mmol/L Carbon Dioxide (22-32) mmol/L BUN (9-20) mg/dL Creatinine (0.66-1.25) mg/dL Estimated GFR (>60) mL/min BUN/Creatinine Ratio (6-22) Glucose (80-110) mg/dL Lactate (0.7-2.1) mmol/L Calcium (8.4-10.2) mg/dL Total Bilirubin (0.2-1.3) mg/dL AST (17-59) IU/L ALT (<50) IU/L Alkaline Phosphatase (38-126) U/L Troponin I 0.064 H (0.01-0.034) ng/mL NT-Pro-B Natriuret Pep (<450) pg/mL Total Protein (6.3-8.2) g/dL Albumin (3.5-5.0) g/dL Globulin (1.7-4.1) g/dL Albumin/Globulin Ratio (1.0-2.8) SARS-CoV-2 (PCR) (Negative) Influenza A (RT-PCR) (NEGATIVE) Influenza B (RT-PCR) (NEGATIVE) RSV (PCR) (Negative) [facility] Narrative Medical decision making narrative: 83-year-old male with history of congestive heart failure, previously treated with IV Lasix per , but she can not recall that he has been on any oral Lasix chronic medication, has increasing shortness of breath and increasing bilateral lower extremity edema, apparently it is not feeling Lasix therapy, as he has not apparently on Lasix therapy. He denies any chest discomfort. No recent cough cold symptoms. Chest x-ray shows fluid overload changes. However he is in supine recumbent position speaking in full sentences, no respiratory distress, no bibasilar crackles, with bilateral lower extremity edema, normotensive, with normal room-air sat. Initial troponin 0.067, in range of similar elevations in the past. T bili 3, no abdominal tenderness, likely due to passive congestion, elevated in the past, no abdominal imaging warranted at this time. BNP 8000s noted. IV Lasix 40 mg for now. COVID swab pending. We will repeat interval troponin. Records review. 11/08/2023 cardiac echo. LVEF 50%, moderate LVH, moderate MR, bilateral dilated atria, moderate TR. Interval repeat troponin 0.064 decreased, similarly elevated in the past COVID swab negative. Congestive heart failure with some fluid overload clinically, however in no respiratory distress, speaking in full sentences, supine in no respiratory distress, bilateral lower extremity edema, apparently not taking any to read at home, IV Lasix given, further oral Lasix diuresis newly prescribed. seems interested in taking him home, she will fill the prescription as she can only drive while as laid out. Lasix 20 mg daily prescription sent to local pharmacy for to feel now. They will start daily dosing, recheck advised the next few days to check symptoms and response to therapy, also to check electrolytes. Home with Dr Lemus: Received turned over. Review patient's history and physical workup up to this point. I agree with the patient most likely is experiencing fluid overload. He has been on Lasix in the past. His has already picked up the prescription from the day provider. He was given more Lasix here in the ER. He did diurese. His BNP is elevated. Chest x-ray shows pulmonary edema. He was not hypoxic. Not tachypneic. No indication for admission to the hospital today although I did inform the patient and his that if his breathing were to worsen despite the diuretics he may need to return to the ER. They expressed understanding and agreement with plan. Critical Care Time <Noah Yepez MD - Last Filed: 03/31/24 08:35> Critical Care Time Critical Care Time: Yes Total Critical Care Time: 31 Attestation: The high probability of a clinically significant, sudden or life threatening deterioration of the [cardiopulmonary] system(s) required my full and direct attention, intervention and personal management. The aggregate critical care time was [31] minutes. This time is in addition to time spent performing reported procedures but includes the following: [x] Data Review and interpretation [x] Patient assessment and monitoring of vital signs [x] Documentation [x] Medication orders and management Discharge Plan Departure Patient Disposition: Home Clinical Impression: Congestive heart failure, Edema of both lower extremities Activity Restrictions/Additional Instructions: 83-year-old male with history of congestive heart failure, last echocardiogram 11/08/2023, previously given dose of IV Lasix but apparently not taking any oral Lasix diuretic regimen, with increased shortness of breath and increased lower extremity edema over the last week or so, recently seen by PCP referred here for further evaluation. He denies chest pain. He is able to speak in full sentences near recumbent position, he does have bilateral lower extremity swelling, I could not hear any crackles on exam. Chest x-ray did show some fluid overload changes. EKG shows atrial fibrillation, blood testing not suggestive of heart attack at this time. Suspected congestive heart failure however seems compensated at this time, not feeling outpatient diuretic therapy, as apparently he has not taking any diuretic medications, IV Lasix dose given in the emergency department. Start oral Lasix 20 mg daily for now, the dose might need to be increased in follow up, see how you tolerate the dose, and recheck electrolytes in the next few days with your regular provider. Return earlier to this/nearest emergency department for any change worsening symptoms or any concerns prior Prescriptions: New furosemide [Lasix] 20 mg tablet 20 mg PO DAILY Qty: 30 0RF No Action atorvastatin [Lipitor] 40 MG tablet 40 mg PO BEDTIME Qty: 0 metoprolol succinate 50 mg tablet extended release 24 hr 50 mg PO DAILY Eliquis 5 mg tablet 5 mg PO BID furosemide [Lasix] 20 mg tablet 20 mg PO Q OTHER DAY Qty: 14 0RF ofloxacin 0.3 % drops 10 drp EAR-LEFT Q24H Qty: 10 0RF Referrals: Iliana Saravia PA-C [Primary Care Provider] - Stand Alone Forms: Patient Portal/API
[2024-03-30 17:35] LABS: Influenza A - CEPHEID Flu A NEGATIVE (NEGATIVE); Influenza B - CEPHEID Flu B NEGATIVE (NEGATIVE); Respiratory Syncytial Virus Negative (Negative)
[2024-03-30 17:36] LABS: COVID-19 CEPHEID 4-PLEX PCR Negative (Negative)
[2024-03-30 17:43] LABS: Troponin I 0.064 ng/mL (0.01-0.034)
--- NOTE | 2024-03-30 19:30 | PC.NURSE ---
waiting re-evaluation and disposition at bedside
== END 2024-03-30 20:29 | disposition home or self-care (01) ==
PROVIDERS: Emergency Medicine; Emergency Provider Emergency Medicine; Family Provider Physician Assistant; PCP Physician Assistant
DX: I50.9 Heart failure, unspecified (principal); R60.0 Localized edema; I10 Essential (primary) hypertension; Z11.52 Encounter for screening for COVID-19; I48.91 Unspecified atrial fibrillation; Z79.01 Long term (current) use of anticoagulants; Z86.73 Personal history of transient ischemic attack (TIA), and cerebral infarction without residual deficits
CPT/HCPCS: 0241U; 36415; 71045; 80053; 83605; 83880; 84484; 85025; 85610; 93005; 96374; 96376; 99284; J1940

== ENCOUNTER → 2024-05-13 12:53 | Outpatient (CLI) | payer MEDICARE, SELFPAY ==
[2023-11-08 18:09] VITALS: BMI 24.3
[2024-05-13 14:35] LABS: Hematocrit 41.3 % (41-53); Hemoglobin 14.1 g/dL (13.5-17.5); Mean Corpuscular Hemoglobin 36.1 PG (26-34); Mean Corpuscular Volume 106.1 fL (80-100); Platelet Count 126 X10^3/uL (150-400); Red Cell Distribution Width 14.7 % (11.6-14.8); White Blood Cell Count 5.5 X10^3/uL (4.5-11.0)
[2024-05-13 15:02] LABS: BUN Creatinine Ratio 41.6 (6-22); Blood Urea Nitrogen 32 mg/dL (9-20); Calcium 9.2 mg/dL (8.4-10.2); Carbon Dioxide 28 mmol/L (22-32); Chloride 103 mmol/L (98-107); Estimated Glomerular Filt Rate > 60 mL/min (>60); Glucose 93 mg/dL (80-110); HEMOLYSIS < 15 (0-50); Potassium 4.5 mmol/L (3.4-5.1); Sodium 137 mmol/L (137-145)
== END ==
LOC: LAB 12:54
PROVIDERS: Family Provider Physician Assistant; PCP Physician Assistant; Referring Provider Internal Medicine Cardiovascular Disease; Visit Provider Internal Medicine Cardiovascular Disease
DX: I48.19 Other persistent atrial fibrillation (principal); I50.22 Chronic systolic (congestive) heart failure
CPT/HCPCS: 36415; 80048; 85027

== ENCOUNTER → 2024-07-29 13:48 | Outpatient (CLI) | payer MEDICARE, SELFPAY ==
[2023-11-08 18:09] VITALS: BMI 24.3
--- NOTE | 2024-07-29 | DI.RAD.S_ITS ---
PROCEDURE: XR CHEST 2V INDICATIONS: shortness of breath, pulmonary hypertension, persistent afib TECHNIQUE: 2 views of the chest were acquired. COMPARISON: [facility], CR, XR CHEST 2V, 11/08/2023, 12:26. [facility], CR, XR CHEST 1V, 03/30/2024, 14:57. FINDINGS: Surgical changes and devices: None. Lungs and pleura: Lungs are clear. No pleural effusions or pneumothorax. Mediastinum: Superior widening of the mediastinum is stable, felt secondary to tortuous great vessels. Stable mild cardiomegaly. Bones and chest wall: No suspicious bony abnormalities. Multiple compressions. Soft tissues appear unremarkable. IMPRESSION: No acute pulmonary process. Multiple old compression fractures. Stable mild cardiomegaly. Dictated by: Eliu Maher M.D. on 07/29/2024 at 21:22 Approved by: Eliu Maher M.D. on 07/29/2024 at 21:23
== END ==
LOC: RAD 13:50
PROVIDERS: Family Provider Physician Assistant; PCP Physician Assistant; Referring Provider Internal Medicine Cardiovascular Disease; Visit Provider Internal Medicine Cardiovascular Disease
DX: I50.22 Chronic systolic (congestive) heart failure (principal); I48.19 Other persistent atrial fibrillation; R06.02 Shortness of breath; I27.20 Pulmonary hypertension, unspecified; I51.7 Cardiomegaly
CPT/HCPCS: 71046

== ENCOUNTER → 2024-08-17 09:46 | Outpatient (CLI) | payer MEDICARE, SELFPAY ==
[2023-11-08 18:09] VITALS: BMI 24.3
== END ==
PROVIDERS: Family Provider Physician Assistant; PCP Physician Assistant; Referring Provider Internal Medicine Cardiovascular Disease; Visit Provider Internal Medicine Cardiovascular Disease
DX: I50.22 Chronic systolic (congestive) heart failure (principal); R06.02 Shortness of breath; I48.19 Other persistent atrial fibrillation; I27.20 Pulmonary hypertension, unspecified; R94.2 Abnormal results of pulmonary function studies
CPT/HCPCS: 94060; 94726; 94729